=== PATIENT | male | born 1970 | race Two or more races ===

== ENCOUNTER 2016-12-13 11:45 | Inpatient (IN) | payer MEDICARE, MEDICAID ==
[~2016-12-13] VITALS: Ht 165.1 cm; Wt 95.7 kg
[2016-12-13] MEDS ORDERED: ABILIFY15 MG ORAL (17:21)
[2016-12-13] MEDS ORDERED: NEURONTIN300 MG ORAL (17:21)
[2016-12-13] MEDS ORDERED: TAMSULOSIN HCL0.4 MG ORAL (17:21)
[2016-12-13] MEDS ORDERED: DEPAKENE250 MG/5 M PO (17:21)
[2016-12-13] MEDS ORDERED: ACETAMINOPHEN325 M1 ORAL (17:21)
[2016-12-13] MEDS ORDERED: LORAZEPAM0.5 MG ORAL (17:21)
[2016-12-13] MEDS ORDERED: TRAZODONE HCL300 MG ORAL (17:21)
[2016-12-13] MEDS ORDERED: ZYPREXA20 MG ORAL (17:21)
[2016-12-13] MEDS ORDERED: FLEET ENEMA133 ML RECTAL (17:21)
[2016-12-13] MEDS ORDERED: AMBIEN5 MG ORAL (17:21)
[2016-12-13] MEDS ORDERED: BENADRYL25 MG ORAL (17:21)
[2016-12-13] MEDS ORDERED: OYSTER SHELL 51 EAC1 PO (17:21)
[2016-12-13] MEDS ORDERED: PROSCAR5 MG ORAL (17:21)
[2016-12-13] MEDS ORDERED: AMANTADINE50 MG/5 ML ORAL (17:21)
[2016-12-13 17:24] VITALS: BP 99/72
[2016-12-13] MEDS ORDERED: Morphine Sulfate 2mg/ml Inj IVP PRN (18:00)
[2016-12-13] MEDS ORDERED: LORazepam Inj 2mg/ml 1ml IV PRN (18:00)
[2016-12-13] MEDS ORDERED: D5 1/2NS 1,000 ML IV SCH (18:30)
--- NOTE | 2016-12-13 18:51 | Infectious Diseases Prog Note ---
Assessment/Plan Problems: (1) Sepsis Assessment & Plan: will send blood culture and start cefepime with vancomycin empirically (2) UTI (urinary tract infection) Assessment & Plan: will order UA and urine culture, and start cefepime (3) Elevated liver enzymes Assessment & Plan: unclear etiology, will screen for hepatitis, recommend GI consult Subjective Allergies: Coded Allergies: VANCOMYCIN (Verified Allergy, Unknown, 12/13/16) Objective Vital Signs Last 24 Hour Vital Signs Date Time Temp Pulse Resp B/P (MAP) Pulse Ox O2 Delivery O2 Flow Rate FiO2 12/13/16 17:24 97.9 86 18 99/72 98 Room Air Height (Feet): 5 Height (Inches): 7.00 Weight (Pounds): 212 Current Medications Medications (Trade) Dose Ordered Sig/Abhishek Route PRN Reason Start Time Stop Time Status Last Admin Dose Admin Aripiprazole (Abilify) 15 mg DAILY ORAL 12/14/16 09:00 01/13/17 08:59 Dextrose (Dextrose 50%) STAT PRN IV Hypoglycemia 12/13/16 18:00 01/12/17 17:59 Dextrose/Sodium Chloride 1,000 ml @ 50 mls/hr Q20H IV 12/13/16 18:30 01/12/17 18:29 12/13/16 18:33 Finasteride (Proscar) 5 mg DAILY ORAL 12/14/16 09:00 01/13/17 08:59 Gabapentin (Neurontin) 300 mg THREE TIMES A DAY ORAL 12/13/16 20:00 01/12/17 19:59 Heparin Sodium (Porcine) (Heparin 5000 units/ml) 5,000 units EVERY 12 HOURS SUBQ 12/13/16 21:00 01/12/17 20:59 Lorazepam (Ativan 2mg/ml 1ml) 0.5 mg Q4H PRN IV For Anxiety 12/13/16 18:00 12/20/16 17:59 Morphine Sulfate (Morphine Sulfate) 1 mg Q4H PRN IVP PAIN 4-10 12/13/16 18:00 12/20/16 17:59 Olanzapine (ZyPREXA) 5 mg DAILY ORAL 12/14/16 09:00 01/13/17 08:59 Ondansetron HCl (Zofran) 4 mg Q6H PRN IVP Nausea & Vomiting 12/13/16 18:00 01/12/17 17:59 Tamsulosin HCl (Flomax) 0.4 mg BEDTIME ORAL 12/13/16 21:00 01/12/17 20:59 Trazodone HCl (Desyrel) 300 mg BEDTIME ORAL 12/13/16 21:00 01/12/17 20:59 Kavin Rolon M.D. Dec 13, 2016 18:51
[2016-12-13 19:33] LABS: APPEARANCE,URINE SLIGHTLY CLOUDY; KETONES,URINE NEGATIVE (NEGATIVE); LEUKOCYTE ESTERASE ,URINE 2+ (NEGATIVE); NITRITE,URINE NEGATIVE (NEGATIVE); PH,URINE 6 (4.5-8.0); PROTEIN,URINE NEGATIVE (NEGATIVE); UROBILINOGEN,URINE 12 MG/DL (0.0-1.0)
[2016-12-13 19:37] LABS: BASOPHILS % (AUTO) 0.8 % (0.0-2.0); EOSINOPHILS % (AUTO) 0.2 % (0.0-3.0); LYMPHOCYTES % (AUTO) 15.4 % (20.0-45.0); MEAN CORPUSCULAR HEMOGLOBIN 30.4 PG (27.0-31.0); MEAN CORPUSCULAR VOLUME 95 FL (80-99); MEAN PLATELET VOLUME 8.7 FL (6.5-10.1); MONOCYTES % (AUTO) 7.9 % (1.0-10.0); NEUTROPHILS % (AUTO) 75.7 % (45.0-75.0); PLATELET COUNT 126 K/UL (150-450); RED BLOOD COUNT 3.89 M/UL (4.70-6.10); RED CELL DISTRIBUTION WIDTH 15.8 % (11.6-14.8); WHITE BLOOD COUNT 5.7 K/UL (4.8-10.8)
[2016-12-13 19:41] LABS: BACTERIA,URINE FEW /HPF; RBC,URINE 20-30 /HPF (0 - 0); SQUAMOUS EPITHELIAL CELL,UR OCCASIONAL /LPF (NONE/OCC)
[2016-12-13 19:42] LABS: ICTOTEST NEGATIVE
[2016-12-13 19:43] LABS: ALANINE AMINOTRANSFERASE 222 U/L (12-78); ALBUMIN/GLOBULIN RATIO 0.8 (1.0-2.7); ANION GAP 10 (5-15); ASPARTATE AMINO TRANSFERASE 476 U/L (15-37); CALCIUM 7.2 MG/DL (8.5-10.1); CARBON DIOXIDE 22 MMOL/L (21-32); CHLORIDE 116 MMOL/L (98-107); CREATININE 0.6 MG/DL (0.55-1.30); GLOMERULAR FILTRATION RATE > 60 mL/min (>60); POTASSIUM 3.3 MMOL/L (3.5-5.1); SODIUM 148 MMOL/L (136-145)
[2016-12-13] MEDS ORDERED: Cefepime HCl 2 GM in D5W 110 ML IVPB ONE (20:00)
[2016-12-13 20:05] VITALS: BP 99/58
[2016-12-13] MEDS: Cefepime HCl 2 GM in D5W 110 ML IVPB SCH (20:36)
[2016-12-13] MEDS: Heparin 5000 units/ml inj SUBQ SCH (20:37)
[2016-12-13] MEDS ORDERED: TraZODone 100mg tab ORAL SCH (21:00)
[2016-12-13] MEDS ORDERED: Tamsulosin 0.4mg cap ORAL SCH (21:00)
[2016-12-13] MEDS: Clindamycin 600mg 50 ML IV SCH (22:17)
[2016-12-14] VITALS: BP 110/65
[2016-12-14 04:00] VITALS: BP 115/77
[2016-12-14] MEDS: Clindamycin 600mg 50 ML IV SCH ×3 (04:05→22:00)
[2016-12-14 04:46] LABS: BASOPHILS % (AUTO) 1.5 % (0.0-2.0); EOSINOPHILS % (AUTO) 0.7 % (0.0-3.0); LYMPHOCYTES % (AUTO) 27.7 % (20.0-45.0); MEAN CORPUSCULAR HEMOGLOBIN 31.9 PG (27.0-31.0); MEAN CORPUSCULAR HGB CONC 34.6 G/DL (32.0-36.0); MEAN CORPUSCULAR VOLUME 92 FL (80-99); MEAN PLATELET VOLUME 9.2 FL (6.5-10.1); NEUTROPHILS % (AUTO) 61.1 % (45.0-75.0); PLATELET COUNT 126 K/UL (150-450); RED CELL DISTRIBUTION WIDTH 15.7 % (11.6-14.8); WHITE BLOOD COUNT 4.6 K/UL (4.8-10.8)
[2016-12-14 07:20] LABS: HEPATITIS A ANTIBODY TOTAL Negative (Negative)
[2016-12-14 07:54] LABS: ALANINE AMINOTRANSFERASE 203 U/L (12-78); ALBUMIN/GLOBULIN RATIO 0.6 (1.0-2.7); ANION GAP 10 (5-15); ASPARTATE AMINO TRANSFERASE 384 U/L (15-37); CALCIUM 7.1 MG/DL (8.5-10.1); CARBON DIOXIDE 21 MMOL/L (21-32); CHLORIDE 117 MMOL/L (98-107); CREATININE 0.6 MG/DL (0.55-1.30); GLOMERULAR FILTRATION RATE > 60 mL/min (>60); POTASSIUM 3.4 MMOL/L (3.5-5.1); SODIUM 147 MMOL/L (136-145)
[2016-12-14 08:00] VITALS: BP_SYST 124; BP_SYST 148; BP_DIAS 46; BP_DIAS 65
[2016-12-14] MEDS: Cefepime HCl 2 GM in D5W 110 ML IVPB SCH ×2 (09:51→20:55)
[2016-12-14] MEDS: Heparin 5000 units/ml inj SUBQ SCH ×2 (09:53→20:56)
--- NOTE | 2016-12-14 11:42 | Diagnostic Imaging Report ---
Indication: Chest pain Technique: One view of the chest Comparison: none Findings: Bands of atelectasis or scarring are seen in the left lung base. Lungs and pleural spaces are otherwise clear. The heart is upper limits of normal in size. Impression: Left basilar atelectasis or scarring No acute process otherwise
--- NOTE | 2016-12-14 11:56 | Consultation ---
History of Present Illness General Date patient seen: Dec 13, 2016 Present Illness HPI 46 year old male with hx of Parkinson, schizophrenia, bipolar, depression, dementia, epilepsy, custodial resident was taken to [facility] with CC of fever. Pt was diagnosed to have sepsis and was transferred to [facility] for further w/ u. Pt is awake, looks comfortable but cant give any history. He can utter a few words. Doesn't have any acute complains. Allergies: Coded Allergies: VANCOMYCIN (Verified Allergy, Unknown, 12/13/16) Medication History Scheduled Amantadine HCl (Amantadine), 100 MG ORAL TWICE A DAY, (Reported) Aripiprazole* (Abilify*), 15 MG ORAL DAILY, (Reported) Calcium Carbonate/Vitamin D3 (Oyster Shell 500 Mg + Vit D Tb), 1 EACH PO BID, ( Reported) Finasteride* (Proscar*), 5 MG ORAL DAILY, (Reported) Gabapentin (Neurontin), 300 MG ORAL THREE TIMES A DAY, (Reported) Olanzapine (Zyprexa), 20 MG ORAL BID, (Reported) Tamsulosin Hcl (Tamsulosin Hcl*), 0.4 MG ORAL BEDTIME, (Reported) Trazodone Hcl (Trazodone Hcl), 300 MG ORAL BEDTIME, (Reported) Valproate Sodium (Depakene), 250 MG PO TID, (Reported) Scheduled PRN Acetaminophen* (Acetaminophen 325MG Tablet*), 650 MG ORAL Q4H PRN for Mild Pain/ Temp > 100.5, (Reported) Diphenhydramine Hcl* (Benadryl*), 25 MG ORAL Q6H PRN for Itching, (Reported) Lorazepam* (Lorazepam*), 0.5 MG ORAL Q6HR PRN for Agitation, (Reported) Na Phos,M-B/Na Phos,Di-Ba* (Fleet Enema*), 133 ML RECTAL DAILY PRN for Constipation, (Reported) Zolpidem Tartrate* (Ambien*), 2.5 MG ORAL BEDTIME PRN for Insomnia, (Reported) Patient History Healthcare decision maker N Resuscitation status Full Code Advanced Directive on File Past Medical/Surgical History Past Medical/Surgical History: (1) Parkinson disease (2) Dementia (3) Epilepsia Review of Systems All Other Systems: negative except mentioned in HPI Physical Exam General Appearance: WD/WN, no apparent distress Lines, tubes and drains: peripheral, PICC HEENT: normocephalic, atraumatic Neck: non-tender, supple Respiratory/Chest: chest wall non-tender, lungs clear Breasts: no masses Cardiovascular/Chest: normal peripheral pulses, regularly irregular Last 24 Hour Vital Signs Date Time Temp Pulse Resp B/P (MAP) Pulse Ox O2 Delivery O2 Flow Rate FiO2 12/14/16 08:00 97.6 72 20 124/46 97 Room Air 12/14/16 08:00 75 12/14/16 04:00 97.2 75 19 115/77 95 Room Air 12/14/16 04:00 77 12/14/16 00:00 64 12/14/16 00:00 98.1 80 18 110/65 97 Room Air 12/13/16 20:05 97.9 83 17 99/58 95 Room Air 12/13/16 20:00 78 12/13/16 17:24 97.9 86 18 99/72 98 Room Air Laboratory Tests Test 12/13/16 18:43 12/13/16 19:00 12/13/16 20:10 12/14/16 03:20 White Blood Count 5.7 K/UL (4.8-10.8) 4.6 K/UL (4.8-10.8) L Red Blood Count 3.89 M/UL (4.70-6.10) L 4.00 M/UL (4.70-6.10) L Hemoglobin 11.8 G/DL (14.2-18.0) L 12.8 G/DL (14.2-18.0) L Hematocrit 36.9 % (42.0-52.0) L 36.9 % (42.0-52.0) L Mean Corpuscular Volume 95 FL (80-99) 92 FL (80-99) Mean Corpuscular Hemoglobin 30.4 PG (27.0-31.0) 31.9 PG (27.0-31.0) H Mean Corpuscular Hemoglobin Concent 32.0 G/DL (32.0-36.0) 34.6 G/DL (32.0-36.0) Red Cell Distribution Width 15.8 % (11.6-14.8) H 15.7 % (11.6-14.8) H Platelet Count 126 K/UL (150-450) L 126 K/UL (150-450) L Mean Platelet Volume 8.7 FL (6.5-10.1) 9.2 FL (6.5-10.1) Neutrophils (%) (Auto) 75.7 % (45.0-75.0) H 61.1 % (45.0-75.0) Lymphocytes (%) (Auto) 15.4 % (20.0-45.0) L 27.7 % (20.0-45.0) Monocytes (%) (Auto) 7.9 % (1.0-10.0) 9.0 % (1.0-10.0) Eosinophils (%) (Auto) 0.2 % (0.0-3.0) 0.7 % (0.0-3.0) Basophils (%) (Auto) 0.8 % (0.0-2.0) 1.5 % (0.0-2.0) Sodium Level 148 MMOL/L (136-145) H 147 MMOL/L (136-145) H Potassium Level 3.3 MMOL/L (3.5-5.1) L 3.4 MMOL/L (3.5-5.1) L Chloride Level 116 MMOL/L (98-107) H 117 MMOL/L (98-107) H Carbon Dioxide Level 22 MMOL/L (21-32) 21 MMOL/L (21-32) Anion Gap 10 (5-15) 10 (5-15) Blood Urea Nitrogen 16 mg/dL (7-18) 15 mg/dL (7-18) Creatinine 0.6 MG/DL (0.55-1.30) 0.6 MG/DL (0.55-1.30) Estimat Glomerular Filtration Rate > 60 mL/min (>60) > 60 mL/min (>60) Glucose Level 101 MG/DL (74-106) 94 MG/DL (74-106) Calcium Level 7.2 MG/DL (8.5-10.1) L 7.1 MG/DL (8.5-10.1) L Total Bilirubin 0.8 MG/DL (0.2-1.0) 0.5 MG/DL (0.2-1.0) Aspartate Amino Transf (AST/SGOT) 476 U/L (15-37) H 384 U/L (15-37) H Alanine Aminotransferase (ALT/SGPT) 222 U/L (12-78) H 203 U/L (12-78) H Alkaline Phosphatase 34 U/L (46-116) L 37 U/L (46-116) L Total Protein 5.0 G/DL (6.4-8.2) L 5.0 G/DL (6.4-8.2) L Albumin 2.2 G/DL (3.4-5.0) L 1.9 G/DL (3.4-5.0) L Globulin 2.8 g/dL 3.1 g/dL Albumin/Globulin Ratio 0.8 (1.0-2.7) L 0.6 (1.0-2.7) L Urine Color Brown Urine Appearance Slightly cloudy Urine pH 6 (4.5-8.0) Urine Specific [place] 1.015 (1.005-1.035) Urine Protein Negative (NEGATIVE) Urine Glucose (UA) Negative (NEGATIVE) Urine Ketones Negative (NEGATIVE) Urine Occult Blood 4+ (NEGATIVE) H Urine Nitrite Negative (NEGATIVE) Urine Bilirubin 1+ (NEGATIVE) H Urine Ictotest Negative Urine Urobilinogen 12 MG/DL (0.0-1.0) H Urine Leukocyte Esterase 2+ (NEGATIVE) H Urine RBC 20-30 /HPF (0 - 0) H Urine WBC 5-10 /HPF (0 - 0) H Urine Squamous Epithelial Cells Occasional /LPF Urine Bacteria Few /HPF (NONE) Urine Opiates Screen Negative (NEGATIVE) Urine Barbiturates Screen Negative (NEGATIVE) Phencyclidine (PCP) Screen Negative (NEGATIVE) Urine Amphetamines Screen Negative (NEGATIVE) Urine Benzodiazepines Screen Negative (NEGATIVE) Urine Cocaine Screen Negative (NEGATIVE) Urine Marijuana (THC) Screen Negative (NEGATIVE) Hepatitis A Antibody Total Negative (Negative) Hepatitis B Surface Antigen Negative (Negative) Hepatitis B Core IgM Antibody Negative (Negative) Hepatitis C Antibody >11.0 s/co ratio Hepatitis E IgG Antibody Pending Microbiology Date/Time Source Procedure Growth Status 12/13/16 19:00 Indwelling Cath Urine Culture - Preliminary NO GROWTH Resulted Height (Feet): 5 Height (Inches): 7.00 Weight (Pounds): 212 Medications Current Medications Medications (Trade) Dose Ordered Sig/Abhishek Route PRN Reason Start Time Stop Time Status Last Admin Dose Admin Aripiprazole (Abilify) 15 mg DAILY ORAL 12/14/16 09:00 01/13/17 08:59 12/14/16 09:51 Cefepime HCl 2 gm/ Dextrose 110 ml @ 220 mls/hr Q12HR IVPB 12/13/16 20:30 12/20/16 20:29 12/14/16 09:51 Clindamycin HCl/ Dextrose 50 ml @ 100 mls/hr Q8H IV 12/13/16 21:00 12/20/16 20:59 12/14/16 04:05 Dextrose (Dextrose 50%) STAT PRN IV Hypoglycemia 12/13/16 18:00 01/12/17 17:59 Dextrose/Sodium Chloride 1,000 ml @ 50 mls/hr Q20H IV 12/13/16 18:30 01/12/17 18:29 12/13/16 18:33 Finasteride (Proscar) 5 mg DAILY ORAL 12/14/16 09:00 01/13/17 08:59 12/14/16 09:51 Gabapentin (Neurontin) 300 mg THREE TIMES A DAY ORAL 12/13/16 20:00 01/12/17 19:59 12/14/16 09:51 Heparin Sodium (Porcine) (Heparin 5000 units/ml) 5,000 units EVERY 12 HOURS SUBQ 12/13/16 21:00 01/12/17 20:59 12/14/16 09:53 Lorazepam (Ativan 2mg/ml 1ml) 0.5 mg Q4H PRN IV For Anxiety 12/13/16 18:00 12/20/16 17:59 Morphine Sulfate (Morphine Sulfate) 1 mg Q4H PRN IVP PAIN 4-10 12/13/16 18:00 12/20/16 17:59 Olanzapine (ZyPREXA) 5 mg DAILY ORAL 12/14/16 09:00 01/13/17 08:59 12/14/16 09:51 Ondansetron HCl (Zofran) 4 mg Q6H PRN IVP Nausea & Vomiting 12/13/16 18:00 01/12/17 17:59 Tamsulosin HCl (Flomax) 0.4 mg BEDTIME ORAL 12/13/16 21:00 11/9/17 20:59 12/13/16 20:37 Trazodone HCl (Desyrel) 300 mg BEDTIME ORAL 12/13/16 21:00 01/12/17 20:59 12/13/16 20:36 Assessment/Plan Problem List: (1) Sepsis ICD Codes: A41.9 - Sepsis, unspecified organism SNOMED: 45628248 (2) UTI (urinary tract infection) ICD Codes: N39.0 - Urinary tract infection, site not specified SNOMED: 38751459 (3) Epilepsia ICD Codes: G40.909 - Epilepsy, unspecified, not intractable, without status epilepticus SNOMED: 06054737 (4) Parkinson disease ICD Codes: G20 - Parkinson's disease SNOMED: 15102564 (5) Dementia ICD Codes: F03.90 - Unspecified dementia without behavioral disturbance SNOMED: 43351334 Assessment/Plan chou culture broad spectrum abx aspiration precaution dvt prophylaxis psych and neuro evaluation. ARIANA VELÁZQUEZ Dec 14, 2016 11:55
--- NOTE | 2016-12-14 11:58 | Pulmonology Progress Note ---
Assessment/Plan Problems: (1) Sepsis (2) UTI (urinary tract infection) (3) Epilepsia (4) Parkinson disease (5) Dementia Assessment/Plan resume diet continue abx check cultures dvt prophylaxis check liver function Subjective ROS Limited/Unobtainable: No Constitutional: Reports: no symptoms Respiratory: Reports: no symptoms Allergies: Coded Allergies: VANCOMYCIN (Verified Allergy, Unknown, 12/13/16) Objective Last 24 Hour Vital Signs Date Time Temp Pulse Resp B/P (MAP) Pulse Ox O2 Delivery O2 Flow Rate FiO2 12/14/16 08:00 97.6 72 20 124/46 97 Room Air 12/14/16 08:00 75 12/14/16 04:00 97.2 75 19 115/77 95 Room Air 12/14/16 04:00 77 12/14/16 00:00 64 12/14/16 00:00 98.1 80 18 110/65 97 Room Air 12/13/16 20:05 97.9 83 17 99/58 95 Room Air 12/13/16 20:00 78 12/13/16 17:24 97.9 86 18 99/72 98 Room Air General Appearance: WD/WN HEENT: normocephalic, atraumatic Respiratory/Chest: chest wall non-tender, lungs clear Cardiovascular: normal peripheral pulses, normal rate Abdomen: normal bowel sounds, no organomegaly Genitourinary: normal external genitalia Skin: no rash 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 Lymphatic: no neck adenopathy Microbiology Date/Time Source Procedure Growth Status 12/13/16 19:00 Indwelling Cath Urine Culture - Preliminary NO GROWTH Resulted Laboratory Tests 12/13/16 18:43: White Blood Count 5.7, Red Blood Count 3.89L, Hemoglobin 11.8L, Hematocrit 36.9L , Mean Corpuscular Volume 95, Mean Corpuscular Hemoglobin 30.4, Mean Corpuscular Hemoglobin Concent 32.0, Red Cell Distribution Width 15.8H, Platelet Count 126L, Mean Platelet Volume 8.7, Neutrophils (%) (Auto) 75.7H, Lymphocytes (%) (Auto) 15.4L, Monocytes (%) (Auto) 7.9, Eosinophils (%) (Auto) 0.2, Basophils (%) (Auto) 0.8, Sodium Level 148H, Potassium Level 3.3L, Chloride Level 116H, Carbon Dioxide Level 22, Anion Gap 10, Blood Urea Nitrogen 16, Creatinine 0.6, Estimat Glomerular Filtration Rate > 60, Glucose Level 101, Calcium Level 7.2L, Total Bilirubin 0.8, Aspartate Amino Transf (AST/SGOT) 476H , Alanine Aminotransferase (ALT/SGPT) 222H, Alkaline Phosphatase 34L, Total Protein 5.0L, Albumin 2.2L, Globulin 2.8, Albumin/Globulin Ratio 0.8L 12/13/16 19:00: Urine Color Brown, Urine Appearance Slightly cloudy, Urine pH 6, Urine Specific [place] 1.015, Urine Protein Negative, Urine Glucose (UA) Negative, Urine Ketones Negative, Urine Occult Blood 4+H, Urine Nitrite Negative, Urine Bilirubin 1+H, Urine Ictotest Negative, Urine Urobilinogen 12H, Urine Leukocyte Esterase 2+H, Urine RBC 20-30H, Urine WBC 5-10H, Urine Squamous Epithelial Cells Occasional, Urine Bacteria Few, Urine Opiates Screen Negative, Urine Barbiturates Screen Negative, Phencyclidine (PCP) Screen Negative, Urine Amphetamines Screen Negative, Urine Benzodiazepines Screen Negative, Urine Cocaine Screen Negative, Urine Marijuana (THC) Screen Negative 12/13/16 20:10: Hepatitis A Antibody Total Negative, Hepatitis B Surface Antigen Negative, Hepatitis B Core IgM Antibody Negative, Hepatitis C Antibody >11.0H, Hepatitis E IgG Antibody [Pending] 12/14/16 03:20: White Blood Count 4.6L, Red Blood Count 4.00L, Hemoglobin 12.8L, Hematocrit 36.9L, Mean Corpuscular Volume 92, Mean Corpuscular Hemoglobin 31.9H, Mean Corpuscular Hemoglobin Concent 34.6, Red Cell Distribution Width 15.7H, Platelet Count 126L, Mean Platelet Volume 9.2, Neutrophils (%) (Auto) 61.1, Lymphocytes (%) (Auto) 27.7, Monocytes (%) (Auto) 9.0, Eosinophils (%) (Auto) 0.7, Basophils (%) (Auto) 1.5, Sodium Level 147H, Potassium Level 3.4L, Chloride Level 117H, Carbon Dioxide Level 21, Anion Gap 10, Blood Urea Nitrogen 15, Creatinine 0.6, Estimat Glomerular Filtration Rate > 60, Glucose Level 94, Calcium Level 7.1L, Total Bilirubin 0.5, Aspartate Amino Transf (AST/SGOT) 384H , Alanine Aminotransferase (ALT/SGPT) 203H, Alkaline Phosphatase 37L, Total Protein 5.0L, Albumin 1.9L, Globulin 3.1, Albumin/Globulin Ratio 0.6L Current Medications Medications (Trade) Dose Ordered Sig/Abhishek Route PRN Reason Start Time Stop Time Status Last Admin Dose Admin Aripiprazole (Abilify) 15 mg DAILY ORAL 12/14/16 09:00 01/13/17 08:59 12/14/16 09:51 Cefepime HCl 2 gm/ Dextrose 110 ml @ 220 mls/hr Q12HR IVPB 12/13/16 20:30 12/20/16 20:29 12/14/16 09:51 Clindamycin HCl/ Dextrose 50 ml @ 100 mls/hr Q8H IV 12/13/16 21:00 12/20/16 20:59 12/14/16 04:05 Dextrose (Dextrose 50%) STAT PRN IV Hypoglycemia 12/13/16 18:00 01/12/17 17:59 Dextrose/Sodium Chloride 1,000 ml @ 50 mls/hr Q20H IV 12/13/16 18:30 01/12/17 18:29 12/13/16 18:33 Finasteride (Proscar) 5 mg DAILY ORAL 12/14/16 09:00 01/13/17 08:59 12/14/16 09:51 Gabapentin (Neurontin) 300 mg THREE TIMES A DAY ORAL 12/13/16 20:00 01/12/17 19:59 12/14/16 09:51 Heparin Sodium (Porcine) (Heparin 5000 units/ml) 5,000 units EVERY 12 HOURS SUBQ 12/13/16 21:00 01/12/17 20:59 12/14/16 09:53 Lorazepam (Ativan 2mg/ml 1ml) 0.5 mg Q4H PRN IV For Anxiety 12/13/16 18:00 12/20/16 17:59 Morphine Sulfate (Morphine Sulfate) 1 mg Q4H PRN IVP PAIN 4-10 12/13/16 18:00 12/20/16 17:59 Olanzapine (ZyPREXA) 5 mg DAILY ORAL 12/14/16 09:00 01/13/17 08:59 12/14/16 09:51 Ondansetron HCl (Zofran) 4 mg Q6H PRN IVP Nausea & Vomiting 12/13/16 18:00 01/12/17 17:59 Tamsulosin HCl (Flomax) 0.4 mg BEDTIME ORAL 12/13/16 21:00 01/12/17 20:59 12/13/16 20:37 Trazodone HCl (Desyrel) 300 mg BEDTIME ORAL 12/13/16 21:00 01/12/17 20:59 12/13/16 20:36 ARIANA VELÁZQUEZ Dec 14, 2016 11:58
[2016-12-14 12:00] VITALS: BP 120/64
[2016-12-14] MEDS ORDERED: Morphine Sulfate 2mg/ml Inj IVP PRN ×2 (14:00→18:00)
[2016-12-14] MEDS ORDERED: LORazepam Inj 2mg/ml 1ml IV PRN (14:00)
[2016-12-14] MEDS ORDERED: D5 1/2NS 1,000 ML IV SCH ×2 (15:15→17:00)
[2016-12-14 16:00] VITALS: BP 101/58
--- NOTE | 2016-12-14 16:22 | Infectious Diseases Prog Note ---
Assessment/Plan Problems: (1) Sepsis Assessment & Plan: await blood culture and continue cefepime with clindamycin empirically (can't give vancomycin since allergic) (2) UTI (urinary tract infection) Assessment & Plan: await urine culture, continue cefepime (3) Elevated liver enzymes Assessment & Plan: due to chronic HCV infection, will order viral load and genotype, recommend treatment with GI as an out patient (4) HCV infection Assessment & Plan: will check his genotype and viral load, recommend treatment as an out patient Subjective ROS Limited/Unobtainable: Yes Allergies: Coded Allergies: VANCOMYCIN (Verified Allergy, Unknown, 12/13/16) Subjective he is up in bed, alert, comfortable, not in distress, nonverbal , afebrile Objective Vital Signs Last 24 Hour Vital Signs Date Time Temp Pulse Resp B/P (MAP) Pulse Ox O2 Delivery O2 Flow Rate FiO2 12/14/16 12:46 87 12/14/16 12:00 97.7 77 19 120/64 Room Air 12/14/16 08:00 97.6 72 20 124/46 97 Room Air 12/14/16 08:00 75 12/14/16 04:00 97.2 75 19 115/77 95 Room Air 12/14/16 04:00 77 12/14/16 00:00 64 12/14/16 00:00 98.1 80 18 110/65 97 Room Air 12/13/16 20:05 97.9 83 17 99/58 95 Room Air 12/13/16 20:00 78 12/13/16 17:24 97.9 86 18 99/72 98 Room Air Height (Feet): 5 Height (Inches): 7.00 Weight (Pounds): 212 General Appearance: WD/WN, no acute distress HEENT: normocephalic, atraumatic, anicteric, mucous membranes moist, PERRL Respiratory/Chest: chest wall non-tender, lungs clear, normal breath sounds, no respiratory distress, no accessory muscle use Cardiovascular: normal peripheral pulses, normal rate, regular rhythm, no gallop/murmur, no JVD Abdomen: normal bowel sounds, soft, non tender, no organomegaly, non distended , no mass, no scars Extremities: no cyanosis, no clubbing Skin: no rash, no lesions Neurologic/Psychiatric: alert, oriented x 3 Lymphatic: no neck adenopathy Microbiology Date/Time Source Procedure Growth Status 12/13/16 19:00 Indwelling Cath Urine Culture - Preliminary NO GROWTH Resulted Laboratory Tests Test 12/13/16 18:43 12/13/16 19:00 12/13/16 20:10 12/14/16 03:20 White Blood Count 5.7 K/UL (4.8-10.8) 4.6 K/UL (4.8-10.8) L Red Blood Count 3.89 M/UL (4.70-6.10) L 4.00 M/UL (4.70-6.10) L Hemoglobin 11.8 G/DL (14.2-18.0) L 12.8 G/DL (14.2-18.0) L Hematocrit 36.9 % (42.0-52.0) L 36.9 % (42.0-52.0) L Mean Corpuscular Volume 95 FL (80-99) 92 FL (80-99) Mean Corpuscular Hemoglobin 30.4 PG (27.0-31.0) 31.9 PG (27.0-31.0) H Mean Corpuscular Hemoglobin Concent 32.0 G/DL (32.0-36.0) 34.6 G/DL (32.0-36.0) Red Cell Distribution Width 15.8 % (11.6-14.8) H 15.7 % (11.6-14.8) H Platelet Count 126 K/UL (150-450) L 126 K/UL (150-450) L Mean Platelet Volume 8.7 FL (6.5-10.1) 9.2 FL (6.5-10.1) Neutrophils (%) (Auto) 75.7 % (45.0-75.0) H 61.1 % (45.0-75.0) Lymphocytes (%) (Auto) 15.4 % (20.0-45.0) L 27.7 % (20.0-45.0) Monocytes (%) (Auto) 7.9 % (1.0-10.0) 9.0 % (1.0-10.0) Eosinophils (%) (Auto) 0.2 % (0.0-3.0) 0.7 % (0.0-3.0) Basophils (%) (Auto) 0.8 % (0.0-2.0) 1.5 % (0.0-2.0) Sodium Level 148 MMOL/L (136-145) H 147 MMOL/L (136-145) H Potassium Level 3.3 MMOL/L (3.5-5.1) L 3.4 MMOL/L (3.5-5.1) L Chloride Level 116 MMOL/L (98-107) H 117 MMOL/L (98-107) H Carbon Dioxide Level 22 MMOL/L (21-32) 21 MMOL/L (21-32) Anion Gap 10 (5-15) 10 (5-15) Blood Urea Nitrogen 16 mg/dL (7-18) 15 mg/dL (7-18) Creatinine 0.6 MG/DL (0.55-1.30) 0.6 MG/DL (0.55-1.30) Estimat Glomerular Filtration Rate > 60 mL/min (>60) > 60 mL/min (>60) Glucose Level 101 MG/DL (74-106) 94 MG/DL (74-106) Calcium Level 7.2 MG/DL (8.5-10.1) L 7.1 MG/DL (8.5-10.1) L Total Bilirubin 0.8 MG/DL (0.2-1.0) 0.5 MG/DL (0.2-1.0) Aspartate Amino Transf (AST/SGOT) 476 U/L (15-37) H 384 U/L (15-37) H Alanine Aminotransferase (ALT/SGPT) 222 U/L (12-78) H 203 U/L (12-78) H Alkaline Phosphatase 34 U/L (46-116) L 37 U/L (46-116) L Total Protein 5.0 G/DL (6.4-8.2) L 5.0 G/DL (6.4-8.2) L Albumin 2.2 G/DL (3.4-5.0) L 1.9 G/DL (3.4-5.0) L Globulin 2.8 g/dL 3.1 g/dL Albumin/Globulin Ratio 0.8 (1.0-2.7) L 0.6 (1.0-2.7) L Urine Color Brown Urine Appearance Slightly cloudy Urine pH 6 (4.5-8.0) Urine Specific [place] 1.015 (1.005-1.035) Urine Protein Negative (NEGATIVE) Urine Glucose (UA) Negative (NEGATIVE) Urine Ketones Negative (NEGATIVE) Urine Occult Blood 4+ (NEGATIVE) H Urine Nitrite Negative (NEGATIVE) Urine Bilirubin 1+ (NEGATIVE) H Urine Ictotest Negative Urine Urobilinogen 12 MG/DL (0.0-1.0) H Urine Leukocyte Esterase 2+ (NEGATIVE) H Urine RBC 20-30 /HPF (0 - 0) H Urine WBC 5-10 /HPF (0 - 0) H Urine Squamous Epithelial Cells Occasional /LPF Urine Bacteria Few /HPF (NONE) Urine Opiates Screen Negative (NEGATIVE) Urine Barbiturates Screen Negative (NEGATIVE) Phencyclidine (PCP) Screen Negative (NEGATIVE) Urine Amphetamines Screen Negative (NEGATIVE) Urine Benzodiazepines Screen Negative (NEGATIVE) Urine Cocaine Screen Negative (NEGATIVE) Urine Marijuana (THC) Screen Negative (NEGATIVE) Hepatitis A Antibody Total Negative (Negative) Hepatitis B Surface Antigen Negative (Negative) Hepatitis B Core IgM Antibody Negative (Negative) Hepatitis C Antibody >11.0 s/co ratio Hepatitis E IgG Antibody Pending Current Medications Medications (Trade) Dose Ordered Sig/Abhishek Route PRN Reason Start Time Stop Time Status Last Admin Dose Admin Aripiprazole (Abilify) 15 mg DAILY ORAL 12/15/16 09:00 01/13/17 08:59 UNV Cefepime HCl 2 gm/ Dextrose 110 ml @ 220 mls/hr Q12HR IVPB 12/14/16 21:00 12/20/16 20:29 UNV Clindamycin HCl/ Dextrose 50 ml @ 100 mls/hr Q8H IV 12/14/16 21:00 12/20/16 20:59 UNV Dextrose (Dextrose 50%) STAT PRN IV Hypoglycemia 12/15/16 15:00 01/12/17 14:59 UNV Dextrose/Sodium Chloride 1,000 ml @ 50 mls/hr Q20H IV 12/14/16 15:30 01/12/17 15:14 UNV Finasteride (Proscar) 5 mg DAILY ORAL 12/15/16 09:00 01/13/17 08:59 UNV Gabapentin (Neurontin) 300 mg THREE TIMES A DAY ORAL 12/14/16 18:00 01/12/17 19:59 UNV Heparin Sodium (Porcine) (Heparin 5000 units/ml) 5,000 units EVERY 12 HOURS SUBQ 12/14/16 21:00 01/12/17 20:59 UNV Lorazepam (Ativan 2mg/ml 1ml) 0.5 mg Q4H PRN IV For Anxiety 12/14/16 18:00 12/20/16 17:59 UNV Morphine Sulfate (Morphine Sulfate) 1 mg Q4H PRN IVP PAIN 4-10 12/14/16 18:00 12/20/16 17:59 UNV Olanzapine (ZyPREXA) 5 mg DAILY ORAL 12/15/16 09:00 01/13/17 08:59 UNV Ondansetron HCl (Zofran) 4 mg Q6H PRN IVP Nausea & Vomiting 12/14/16 21:00 01/12/17 14:59 UNV Tamsulosin HCl (Flomax) 0.4 mg BEDTIME ORAL 12/14/16 21:00 01/12/17 20:59 UNV Trazodone HCl (Desyrel) 300 mg BEDTIME ORAL 12/14/16 21:00 01/12/17 20:59 UNV Kavin Rolon M.D. Dec 14, 2016 16:22
--- NOTE | 2016-12-14 17:33 | Nephrology Progress Note ---
Assessment/Plan Problem List: (1) Sepsis (2) Dementia (3) Parkinson disease (4) Epilepsia Plan consult [id number] - [id number] Subjective ROS Limited/Unobtainable: Yes Constitutional: Denies: no symptoms, chills, diaphoresis, fever, malaise, weakness, other HEENT: Denies: no symptoms, eye pain, blurred vision, tearing, double vision, ear pain, ear discharge, nose pain, nose congestion, throat pain, throat swelling, mouth pain, mouth swelling, other Genitourinary: Denies: no symptoms, burning, discharge, frequency, flank pain, hematuria, incontinence, pain, urgency, other Neurologic/Psychiatric: Denies: no symptoms, anxiety, depressed, emotional problems, headache, numbness, paresthesia, pre-existing deficit, seizure, tingling, tremors, weakness, other Subjective In bed, in no apparent distress Objective Objective Last 24 Hour Vital Signs Date Time Temp Pulse Resp B/P (MAP) Pulse Ox O2 Delivery O2 Flow Rate FiO2 12/14/16 12:46 87 12/14/16 12:00 97.7 77 19 120/64 Room Air 12/14/16 08:00 97.6 72 20 124/46 97 Room Air 12/14/16 08:00 75 12/14/16 04:00 97.2 75 19 115/77 95 Room Air 12/14/16 04:00 77 12/14/16 00:00 64 12/14/16 00:00 98.1 80 18 110/65 97 Room Air 12/13/16 20:05 97.9 83 17 99/58 95 Room Air 12/13/16 20:00 78 Laboratory Tests 12/13/16 18:43: White Blood Count 5.7, Red Blood Count 3.89L, Hemoglobin 11.8L, Hematocrit 36.9L , Mean Corpuscular Volume 95, Mean Corpuscular Hemoglobin 30.4, Mean Corpuscular Hemoglobin Concent 32.0, Red Cell Distribution Width 15.8H, Platelet Count 126L, Mean Platelet Volume 8.7, Neutrophils (%) (Auto) 75.7H, Lymphocytes (%) (Auto) 15.4L, Monocytes (%) (Auto) 7.9, Eosinophils (%) (Auto) 0.2, Basophils (%) (Auto) 0.8, Sodium Level 148H, Potassium Level 3.3L, Chloride Level 116H, Carbon Dioxide Level 22, Anion Gap 10, Blood Urea Nitrogen 16, Creatinine 0.6, Estimat Glomerular Filtration Rate > 60, Glucose Level 101, Calcium Level 7.2L, Total Bilirubin 0.8, Aspartate Amino Transf (AST/SGOT) 476H , Alanine Aminotransferase (ALT/SGPT) 222H, Alkaline Phosphatase 34L, Total Protein 5.0L, Albumin 2.2L, Globulin 2.8, Albumin/Globulin Ratio 0.8L 12/13/16 19:00: Urine Color Brown, Urine Appearance Slightly cloudy, Urine pH 6, Urine Specific [place] 1.015, Urine Protein Negative, Urine Glucose (UA) Negative, Urine Ketones Negative, Urine Occult Blood 4+H, Urine Nitrite Negative, Urine Bilirubin 1+H, Urine Ictotest Negative, Urine Urobilinogen 12H, Urine Leukocyte Esterase 2+H, Urine RBC 20-30H, Urine WBC 5-10H, Urine Squamous Epithelial Cells Occasional, Urine Bacteria Few, Urine Opiates Screen Negative, Urine Barbiturates Screen Negative, Phencyclidine (PCP) Screen Negative, Urine Amphetamines Screen Negative, Urine Benzodiazepines Screen Negative, Urine Cocaine Screen Negative, Urine Marijuana (THC) Screen Negative 12/13/16 20:10: Hepatitis A Antibody Total Negative, Hepatitis B Surface Antigen Negative, Hepatitis B Core IgM Antibody Negative, Hepatitis C Antibody >11.0H, Hepatitis E IgG Antibody [Pending] 12/14/16 03:20: White Blood Count 4.6L, Red Blood Count 4.00L, Hemoglobin 12.8L, Hematocrit 36.9L, Mean Corpuscular Volume 92, Mean Corpuscular Hemoglobin 31.9H, Mean Corpuscular Hemoglobin Concent 34.6, Red Cell Distribution Width 15.7H, Platelet Count 126L, Mean Platelet Volume 9.2, Neutrophils (%) (Auto) 61.1, Lymphocytes (%) (Auto) 27.7, Monocytes (%) (Auto) 9.0, Eosinophils (%) (Auto) 0.7, Basophils (%) (Auto) 1.5, Sodium Level 147H, Potassium Level 3.4L, Chloride Level 117H, Carbon Dioxide Level 21, Anion Gap 10, Blood Urea Nitrogen 15, Creatinine 0.6, Estimat Glomerular Filtration Rate > 60, Glucose Level 94, Calcium Level 7.1L, Total Bilirubin 0.5, Aspartate Amino Transf (AST/SGOT) 384H , Alanine Aminotransferase (ALT/SGPT) 203H, Alkaline Phosphatase 37L, Total Protein 5.0L, Albumin 1.9L, Globulin 3.1, Albumin/Globulin Ratio 0.6L Height (Feet): 5 Height (Inches): 7.00 Weight (Pounds): 212 General Appearance: no apparent distress, alert EENT: PERRL/EOMI, normal ENT inspection Neck: normal alignment, supple Cardiovascular: normal rate Respiratory/Chest: normal breath sounds, no respiratory distress Abdomen: soft, no organomegaly Extremities: non-tender, normal inspection Neurologic: alert, responsive Yancy Roberts N.P. Dec 14, 2016 17:33
[2016-12-14 20:00] VITALS: BP 91/67
[2016-12-14] MEDS: Tamsulosin 0.4mg cap ORAL SCH (20:54)
[2016-12-14] MEDS: D5W w/KCl 20mEq 1,000 ML IV SCH (20:54)
[2016-12-14] MEDS ORDERED: Heparin 5000 units/ml inj SUBQ SCH (21:00)
[2016-12-14] MEDS ORDERED: Cefepime HCl 2 GM in D5W 110 ML IVPB SCH (21:00)
[2016-12-14] MEDS ORDERED: Clindamycin 600mg 50 ML IV SCH (21:00)
[2016-12-14] MEDS ORDERED: TraZODone 100mg tab ORAL SCH ×2 (21:00)
[2016-12-14] MEDS ORDERED: Tamsulosin 0.4mg cap ORAL SCH (21:00)
--- NOTE | 2016-12-14 22:46 | Consultation ---
DATE OF CONSULTATION: INFECTIOUS DISEASES CONSULTATION REQUESTING PHYSICIAN: Claudio Soria D.O. REASON FOR CONSULTATION: Sepsis, urinary tract infection and fever. Recommendation for antibiotics treatment. HISTORY OF PRESENT ILLNESS: The patient is a 46-year-old male with past medical history of dementia, Parkinson disease, schizophrenia, and epilepsy, [facility] resident, was sent to [facility] for fever. The patient was diagnosed to have sepsis and urine tract infection. He received antibiotics at [facility] and was transferred subsequently to [facility] for further management and workup and I was consulted by the primary provider for antibiotics treatment and further care. As of note, the patient is alert, awake, but cannot provide any history, nonverbal due to dementia and schizophrenia, cannot provide any detailed. History was mainly obtained from the medical record. PAST MEDICAL HISTORY: Significant for Parkinson disease, schizophrenia, bipolar disorder, dementia, and epilepsy. PAST SURGICAL HISTORY: Negative. MEDICATIONS: He is on Abilify, Proscar, Zyprexa, Zofran, Flomax, trazodone, Neurontin and lorazepam. SOCIAL HISTORY: He is [facility] resident. No recent drugs, tobacco, or alcohol. FAMILY HISTORY: Unable to obtain. REVIEW OF SYSTEMS: Unable to obtain due to the dementia and schizophrenia. PHYSICAL EXAMINATION: GENERAL: Middle-aged male, up in bed, awake, alert, but nonverbal, not in acute distress. VITAL SIGNS: Temperature 97.9 degrees, pulse 86, respiration 18, blood pressure 99/72, and O2 saturation 98% on room air. HEENT: Normocephalic and atraumatic. Pupils are reactive to light. Pale sclera. Dry oral mucosa. NECK: Supple. No lymphadenopathy. CARDIOVASCULAR: Regular rate and rhythm. No murmur or gallop. LUNGS: Clear bilaterally. No wheezing. No rhonchi. Normal breathing effort. ABDOMEN: Soft, nontender, and nondistended. Positive bowel sounds. No hepatosplenomegaly. No ascites. EXTREMITIES: No edema. No cyanosis. SKIN: No rash or hives. LABORATORY AND DIAGNOSTIC DATA: Labs showed white count of 5.7, hemoglobin of 11.8 and platelet count of 126. BUN of 16 and creatinine of 0.6. AST of 476 and ALT of 222. Urinalysis showed +2 leukocyte esterase, WBC 5-10, and few bacteria. Imaging, chest x-ray showed left basilar atelectases or scarring. No acute process. ASSESSMENT AND RECOMMENDATION: 1. Sepsis. We will send blood culture and start cefepime with clindamycin empiric coverage for now. Cannot do vancomycin since he is allergic, unclear what kind of allergy. 2. Urinary tract infection. We will order urinalysis and urine culture and start cefepime empiric coverage. 3. Elevated liver enzymes, unclear etiology at this point. We will screen him for hepatitis. Recommend Gastroenterology consult for further workup and management. 4. Schizophrenia, dementia, bipolar disorder and epilepsy. Recommend Neurology consultation and psychiatric evaluation. Thank you for the consult. ID will continue to follow. Kavin Rolon M.D. DR: SHER JOB#: [id number] CC:
[2016-12-14] MEDS: LORazepam Inj 2mg/ml 1ml IV PRN (23:03)
[2016-12-15] VITALS: BP 104/66
--- NOTE | 2016-12-15 00:31 | History and Physical Report ---
DATE OF ADMISSION: 12/14/2016 TIME SEEN: 3 p.m. CONSULTANTS: 1. Uriel Ortez M.D. 2. Valentina Gardner M.D. 3. Dr. Zepeda. 4. Danyel Rouse M.D. 5. Willem Whalen M.D. CHIEF COMPLAINT: UTI, sepsis, and encephalopathy. BRIEF HISTORY: This is a 46-year-old male from [facility], who was transferred to [facility] for the above-mentioned diagnosis and subsequently stabilized and transferred here to [facility] last night. The patient is currently calm, confused, in bed, and not talking much. PAST MEDICAL HISTORY: UTI, sepsis, dementia, Parkinson, and seizure. PAST SURGICAL HISTORY: Unknown. MEDICATIONS: Abilify, Proscar, Zyprexa, cefepime, clindamycin, tamsulosin, Desyrel, Zofran, and morphine. ALLERGIES: Vancomycin. SOCIAL HISTORY: No smoking, no alcohol, and no intravenous drug abuse. FAMILY HISTORY: Noncontributory. REVIEW OF SYSTEMS: Unavailable. PHYSICAL EXAMINATION: GENERAL: Calm in bed, oriented x1, and in no acute distress. VITAL SIGNS: Showed a temperature of 97 degrees, pulse 77, respirations 19, and blood pressure 128/64. CARDIOVASCULAR: No murmur. LUNGS: Poor air exchange. ABDOMEN: Bowel sounds are positive. Nontender and nondistended. EXTREMITIES: No cyanosis, clubbing, or edema. NEUROLOGIC: The patient is slightly weak in bed. Moves all his extremities. LABORATORY DATA: Lab exam shows white count 4.6, hemoglobin and hematocrit are 12.8 and 36, and platelets 126,000. BMP shows sodium 147, potassium 3.4, and chloride 117. AST and ALT are elevated at 384 and 203. Albumin 1.9. Urine tox is negative. Urinalysis, 2+ leukocyte esterase. ASSESSMENT: 1. Urinary tract infection. 2. Sepsis. 3. Encephalopathy. 4. Seizures. 5. Schizophrenia. 6. Dementia. 7. Parkinson. 8. Anemia. 9. Malnutrition. 10. Pancytopenia. PLAN: 1. Continue premedications. 2. Antibiotics per Infectious Disease. 3. OT, PT, and dietary evaluation. 4. O2 and pulmonary treatment as needed. 5. Resume home medications. 6. Dr. Ortez, Dr. Gardner, Dr. Zepeda, Dr. Rouse, Dr. Whalen, Dr. Smith, and Dr. Ramirez to consult. 7. We will continue to follow this patient medically. Claudio Soria D.O. DR: KRIS JOB#: [id number] CC:
--- NOTE | 2016-12-15 02:32 | Consultation ---
DATE OF CONSULTATION: 12/14/2016 NEPHROLOGY CONSULTATION REFERRING PHYSICIAN: Claudio Soria D.O. REASON FOR CONSULT: Hypernatremia and hypokalemia. HISTORY OF PRESENT ILLNESS: The patient is a 46-year-old male with past medical history significant for Parkinson disease, dementia, and epilepsy, who was transferred here from [facility] with fever. The patient is a halfway resident. He was diagnosed with sepsis and was transferred here for further evaluation. He is awake at this time, in no apparent distress he is a poor historian. Speech is garbled. Therefore, medical history was obtained from medical records. However, the patient denies chest pain. No nausea. No vomiting. No abdominal pain. PAST MEDICAL HISTORY: Significant for dementia, epilepsy, and Parkinson disease. MEDICATIONS: Home medications include acetaminophen 650 mg p.o. q.4 p.r.n., amantadine 100 mg p.o. b.i.d., Abilify 15 mg p.o. daily, calcium carbonate one p.o. b.i.d., Benadryl 25 mg p.o. q.6 hours p.r.n., Proscar 5 mg p.o. daily, gabapentin 300 mg p.o. b.i.d., lorazepam 0.5 mg p.o. q.6 hours p.r.n., Zyprexa 20 mg p.o. b.i.d., Flomax 0.4 mg p.o. at bedtime, trazodone hydrochloride 300 mg p.o. at bedtime, valproic acid 250 mg p.o. b.i.d., Ambien 2.5 mg p.o. at bedtime p.r.n. ALLERGIES: He is allergic to vancomycin. SOCIAL HISTORY: The patient lives in a halfway. No history of alcohol use, smoking, or illicit drug use. REVIEW OF SYSTEMS: A full 12-point review of system was reviewed with the patient, however, information is limited. PHYSICAL EXAMINATION: GENERAL: This is a 46-year-old male, in no apparent distress. VITAL SIGNS: Blood pressure 120/64, heart rate is 77, respiratory rate is 19, temperature is 97.7 degrees, and O2 saturation is 97% on room air. HEENT: Head is normocephalic and atraumatic with moist mucous membranes. Pupils are equal, round, and reactive to light and accommodation. NECK: Supple. No jugular venous distention noted. LUNGS: Clear to auscultation bilaterally. No wheezing. No crackles. CARDIOVASCULAR: Regular rate and rhythm. ABDOMEN: Soft, nontender, and nondistended. Positive bowel sounds in all four quadrants. EXTREMITIES: No edema. No cyanosis. No clubbing. LABORATORY AND DIAGNOSTIC DATA: CBC: White count 4.6, hemoglobin 12.8, hematocrit 36.9, and platelet count of 126. BMP: Sodium 147, potassium 3.4, chloride 117, bicarbonate 21, BUN 15, creatinine 0.6, and blood glucose is 94. Calcium is 7.1. Total bilirubin 0.5. AST 384, ALT 203, and alkaline phosphatase is 37. Total protein is 5.0. Albumin 1.9. Radiologic Findings: Chest x-ray impression: Left basilar atelectasis or scarring, no acute process otherwise. ASSESSMENT: 1. Hypernatremia. 2. Hypokalemia. 3. Parkinson disease. 4. Dementia. 5. Developmental delay. PLAN: 1. Replace potassium. 2. Encourage free water. 3. We will monitor electrolytes and correct as needed. 4. We will start patient on IV fluids. 5. Antibiotics per Infectious Diseases. 6. Monitor neurological status. 7. Monitor the patient's overall response to treatment. Jarvis Ramirez M.D. Yancy Roberts DR: ROMA JOB#: [id number] CC:
[2016-12-15 04:00] VITALS: BP 104/53
[2016-12-15] MEDS: Clindamycin 600mg 50 ML IV SCH ×3 (05:47→22:09)
[2016-12-15 07:39] LABS: MEAN CORPUSCULAR HGB CONC 34.1 G/DL (32.0-36.0); MEAN CORPUSCULAR VOLUME 91 FL (80-99); MEAN PLATELET VOLUME 8.7 FL (6.5-10.1); PLATELET COUNT 162 K/UL (150-450); RED BLOOD COUNT 4.15 M/UL (4.70-6.10); RED CELL DISTRIBUTION WIDTH 15.1 % (11.6-14.8); WHITE BLOOD COUNT 4.7 K/UL (4.8-10.8)
[2016-12-15 07:59] LABS: ALANINE AMINOTRANSFERASE 188 U/L (12-78); ALBUMIN/GLOBULIN RATIO 0.7 (1.0-2.7); ANION GAP 7 (5-15); ASPARTATE AMINO TRANSFERASE 283 U/L (15-37); CALCIUM 7.3 MG/DL (8.5-10.1); CARBON DIOXIDE 24 MMOL/L (21-32); CHLORIDE 117 MMOL/L (98-107); CREATININE 0.7 MG/DL (0.55-1.30); CRP QUANT 0.6 mg/dL (0.00-0.90); GLOMERULAR FILTRATION RATE > 60 mL/min (>60); MAGNESIUM 1.9 MG/DL (1.8-2.4); PHOSPHORUS 2.4 MG/DL (2.5-4.9); POTASSIUM 3.4 MMOL/L (3.5-5.1); SODIUM 148 MMOL/L (136-145); TOTAL PROTEIN 5.4 G/DL (6.4-8.2)
[2016-12-15 08:00] VITALS: BP 100/70
[2016-12-15] MEDS: LORazepam Inj 2mg/ml 1ml IV PRN ×2 (08:30→20:27)
[2016-12-15] MEDS: Heparin 5000 units/ml inj SUBQ SCH ×2 (08:32→20:29)
[2016-12-15] MEDS: Cefepime HCl 2 GM in D5W 110 ML IVPB SCH ×2 (08:34→20:28)
[2016-12-15 09:47] LABS: ERYTHROCYTE SEDIMENTATION RATE 11 MM/HR (0-15)
[2016-12-15 11:18] LABS: ANISOCYTOSIS 1+; BAND NEUTROPHILS % (MANUAL) 0 % (0-8); BASOPHILS % (MANUAL) 0 % (0-2); EOSINOPHILS % (MANUAL) 2 % (0-3); LYMPHOCYTES % (MANUAL) 56 % (20-45); NEUTROPHILS % (MANUAL) 35 % (45-75); PLATELET ESTIMATE ADEQUATE; PLATELET MORPHOLOGY NORMAL; TOTAL CELLS COUNTED 100
[2016-12-15 12:00] VITALS: BP 101/72
--- NOTE | 2016-12-15 13:13 | Neurology Progress Note ---
Interim History Interim History ROS Limited/Unobtainable: Yes Objective Physical Exam Last Vital Signs Date Time Temp Pulse Resp B/P (MAP) Pulse Ox O2 Delivery O2 Flow Rate FiO2 12/15/16 04:00 96.4 60 20 104/53 96 Room Air Laboratory Tests Test 12/15/16 06:45 White Blood Count 4.7 K/UL (4.8-10.8) L Red Blood Count 4.15 M/UL (4.70-6.10) L Hemoglobin 12.9 G/DL (14.2-18.0) L Hematocrit 37.8 % (42.0-52.0) L Mean Corpuscular Volume 91 FL (80-99) Mean Corpuscular Hemoglobin 31.0 PG (27.0-31.0) Mean Corpuscular Hemoglobin Concent 34.1 G/DL (32.0-36.0) Red Cell Distribution Width 15.1 % (11.6-14.8) H Platelet Count 162 K/UL (150-450) Mean Platelet Volume 8.7 FL (6.5-10.1) Neutrophils (%) (Auto) % (45.0-75.0) Lymphocytes (%) (Auto) % (20.0-45.0) Monocytes (%) (Auto) % (1.0-10.0) Eosinophils (%) (Auto) % (0.0-3.0) Basophils (%) (Auto) % (0.0-2.0) Differential Total Cells Counted 100 Neutrophils % (Manual) 35 % (45-75) L Lymphocytes % (Manual) 56 % (20-45) H Monocytes % (Manual) 7 % (1-10) Eosinophils % (Manual) 2 % (0-3) Basophils % (Manual) 0 % (0-2) Band Neutrophils 0 % (0-8) Platelet Estimate Adequate Platelet Morphology Normal Anisocytosis 1+ Erythrocyte Sedimentation Rate 11 MM/HR (0-15) Sodium Level 148 MMOL/L (136-145) H Potassium Level 3.4 MMOL/L (3.5-5.1) L Chloride Level 117 MMOL/L (98-107) H Carbon Dioxide Level 24 MMOL/L (21-32) Anion Gap 7 (5-15) Blood Urea Nitrogen 9 mg/dL (7-18) Creatinine 0.7 MG/DL (0.55-1.30) Estimat Glomerular Filtration Rate > 60 mL/min (>60) Glucose Level 95 MG/DL (74-106) Calcium Level 7.3 MG/DL (8.5-10.1) L Phosphorus Level 2.4 MG/DL (2.5-4.9) L Magnesium Level 1.9 MG/DL (1.8-2.4) Total Bilirubin 0.7 MG/DL (0.2-1.0) Aspartate Amino Transf (AST/SGOT) 283 U/L (15-37) H Alanine Aminotransferase (ALT/SGPT) 188 U/L (12-78) H Alkaline Phosphatase 38 U/L (46-116) L C-Reactive Protein, Quantitative 0.6 mg/dL (0.00-0.90) Total Protein 5.4 G/DL (6.4-8.2) L Albumin 2.2 G/DL (3.4-5.0) L Globulin 3.2 g/dL Albumin/Globulin Ratio 0.7 (1.0-2.7) L Impression/Recommendations Problems: (1) 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
[2016-12-15] MEDS: D5W w/KCl 20mEq 1,000 ML IV SCH (14:09)
--- NOTE | 2016-12-15 14:16 | General Progress Note ---
Assessment/Plan Problem List: (1) Sepsis ICD Codes: A41.9 - Sepsis, unspecified organism SNOMED: 70690820 (2) UTI (urinary tract infection) ICD Codes: N39.0 - Urinary tract infection, site not specified SNOMED: 59392971 (3) Elevated liver enzymes ICD Codes: R74.8 - Abnormal levels of other serum enzymes SNOMED: 072529849, 850098795 (4) Dementia ICD Codes: F03.90 - Unspecified dementia without behavioral disturbance SNOMED: 85223436 (5) Parkinson disease ICD Codes: G20 - Parkinson's disease SNOMED: 30489494 (6) Epilepsia ICD Codes: G40.909 - Epilepsy, unspecified, not intractable, without status epilepticus SNOMED: 20647277 Status: stable, progressing, tolerating diet Assessment/Plan ot pt diet abx cbc bmp am Subjective Constitutional: Reports: weakness Allergies: Coded Allergies: VANCOMYCIN (Verified Allergy, Unknown, 12/13/16) All Systems: reviewed and negative except above Subjective confused in bed Objective Last 24 Hour Vital Signs Date Time Temp Pulse Resp B/P (MAP) Pulse Ox O2 Delivery O2 Flow Rate FiO2 12/15/16 04:00 96.4 60 20 104/53 96 Room Air 12/15/16 00:00 97.7 80 18 104/66 94 Room Air 12/14/16 20:00 97.9 75 18 91/67 96 Room Air 12/14/16 16:00 97.7 67 20 101/58 94 Room Air Intake and Output 12/15/16 12/16/16 19:00 07:00 Intake Total 50 ml Balance 50 ml IV Total 50 ml # Bowel Movements 1 Laboratory Tests 12/15/16 06:45: White Blood Count 4.7L, Red Blood Count 4.15L, Hemoglobin 12.9L, Hematocrit 37.8L, Mean Corpuscular Volume 91, Mean Corpuscular Hemoglobin 31.0, Mean Corpuscular Hemoglobin Concent 34.1, Red Cell Distribution Width 15.1H, Platelet Count 162, Mean Platelet Volume 8.7, Neutrophils (%) (Auto) , Lymphocytes (%) (Auto) , Monocytes (%) (Auto) , Eosinophils (%) (Auto) , Basophils (%) (Auto) , Differential Total Cells Counted 100, Neutrophils % ( Manual) 35L, Lymphocytes % (Manual) 56H, Monocytes % (Manual) 7, Eosinophils % ( Manual) 2, Basophils % (Manual) 0, Band Neutrophils 0, Platelet Estimate Adequate, Platelet Morphology Normal, Anisocytosis 1+, Erythrocyte Sedimentation Rate 11, Sodium Level 148H, Potassium Level 3.4L, Chloride Level 117H, Carbon Dioxide Level 24, Anion Gap 7, Blood Urea Nitrogen 9, Creatinine 0.7, Estimat Glomerular Filtration Rate > 60, Glucose Level 95, Calcium Level 7.3L, Phosphorus Level 2.4L, Magnesium Level 1.9, Total Bilirubin 0.7, Aspartate Amino Transf (AST/SGOT) 283H, Alanine Aminotransferase (ALT/SGPT) 188H , Alkaline Phosphatase 38L, C-Reactive Protein, Quantitative 0.6, Total Protein 5.4L, Albumin 2.2L, Globulin 3.2, Albumin/Globulin Ratio 0.7L Height (Feet): 5 Height (Inches): 7.00 Weight (Pounds): 212 General Appearance: lethargic EENT: normal ENT inspection Neck: normal alignment Cardiovascular: normal peripheral pulses, normal rate, regular rhythm Respiratory/Chest: chest wall non-tender, lungs clear, normal breath sounds Abdomen: normal bowel sounds, non tender, soft Extremities: normal inspection Edema: no edema noted Arm (L), no edema noted Arm (R), no edema noted Leg (L), no edema noted Leg (R), no edema noted Pedal (L), no edema noted Pedal (R), no edema noted Generalized Neurologic: motor weakness Skin: normal pigmentation, warm/dry RADHA GARCIA Dec 15, 2016 14:16
--- NOTE | 2016-12-15 14:17 | Pulmonology Progress Note ---
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 possible sepsis possible UTI elevated LFT ( likely due to Depakote vs hep C infection0 seizure disorder Hepatitis C infection electrolyte imbalance schizophrenia BPH PLAN OF CARE MS floor gentle IV hydration urine tox scrren negative UA with possible UTI urine cx preliminary negative abx ID follows swallow eval done, diet as per ST recommendation with strict aspiration /reflux precautions neuro and psych follows hep panel + hep C per ID will check genotype and viral load for outpatient Rx monitor LFT, trending down CXR no acute findings pain management bowel regimen PT/OT monitor lytes, replace as needed nephro follows IVF changed to dextrose with K supplements continue Proscar and Floamx DVT prophylaxis psych follows, psych medication were reviewed and resumed case discussed and evaluated by supervising physician Subjective Allergies: Coded Allergies: VANCOMYCIN (Verified Allergy, Unknown, 12/13/16) Subjective patient is unable to provide much of history no signs of respiratory distress swallow eval just completed Objective Last 24 Hour Vital Signs Date Time Temp Pulse Resp B/P (MAP) Pulse Ox O2 Delivery O2 Flow Rate FiO2 12/15/16 04:00 96.4 60 20 104/53 96 Room Air 12/15/16 00:00 97.7 80 18 104/66 94 Room Air 12/14/16 20:00 97.9 75 18 91/67 96 Room Air 12/14/16 16:00 97.7 67 20 101/58 94 Room Air Intake and Output 12/15/16 12/16/16 19:00 07:00 Intake Total 50 ml Balance 50 ml IV Total 50 ml # Bowel Movements 1 General Appearance: other - awake, alert, obese male in NAD HEENT: normocephalic, atraumatic Respiratory/Chest: lungs clear, no respiratory distress, no accessory muscle use Cardiovascular: normal rate, regular rhythm, no JVD Abdomen: normal bowel sounds, soft, non tender - obese Extremities: no edema Neurologic/Psychiatric: alert, other - speech garbled, incomprehensible Musculoskeletal: normal muscle bulk Microbiology Date/Time Source Procedure Growth Status 12/13/16 20:10 Blood Blood Culture - Preliminary NO GROWTH AFTER 24 HOURS Resulted 12/13/16 19:50 Blood Blood Culture - Preliminary NO GROWTH AFTER 24 HOURS Resulted 12/13/16 18:50 Nasal Nares MRSA Culture - Final Staphylococcus Aureus - Mrsa Complete 12/13/16 19:00 Indwelling Cath Urine Culture - Preliminary NO GROWTH AFTER 24 HOURS Resulted 12/13/16 18:50 Rectum VRE Culture - Final NO VANCOMYCIN RESISTANT ENTEROCOCCUS ... Complete Laboratory Tests 12/15/16 06:45: White Blood Count 4.7L, Red Blood Count 4.15L, Hemoglobin 12.9L, Hematocrit 37.8L, Mean Corpuscular Volume 91, Mean Corpuscular Hemoglobin 31.0, Mean Corpuscular Hemoglobin Concent 34.1, Red Cell Distribution Width 15.1H, Platelet Count 162, Mean Platelet Volume 8.7, Neutrophils (%) (Auto) , Lymphocytes (%) (Auto) , Monocytes (%) (Auto) , Eosinophils (%) (Auto) , Basophils (%) (Auto) , Differential Total Cells Counted 100, Neutrophils % ( Manual) 35L, Lymphocytes % (Manual) 56H, Monocytes % (Manual) 7, Eosinophils % ( Manual) 2, Basophils % (Manual) 0, Band Neutrophils 0, Platelet Estimate Adequate, Platelet Morphology Normal, Anisocytosis 1+, Erythrocyte Sedimentation Rate 11, Sodium Level 148H, Potassium Level 3.4L, Chloride Level 117H, Carbon Dioxide Level 24, Anion Gap 7, Blood Urea Nitrogen 9, Creatinine 0.7, Estimat Glomerular Filtration Rate > 60, Glucose Level 95, Calcium Level 7.3L, Phosphorus Level 2.4L, Magnesium Level 1.9, Total Bilirubin 0.7, Aspartate Amino Transf (AST/SGOT) 283H, Alanine Aminotransferase (ALT/SGPT) 188H , Alkaline Phosphatase 38L, C-Reactive Protein, Quantitative 0.6, Total Protein 5.4L, Albumin 2.2L, Globulin 3.2, Albumin/Globulin Ratio 0.7L Current Medications Medications (Trade) Dose Ordered Sig/Abhishek Route PRN Reason Start Time Stop Time Status Last Admin Dose Admin Aripiprazole (Abilify) 5 mg DAILY ORAL 12/16/16 09:00 01/15/17 08:59 Cefepime HCl 2 gm/ Dextrose 110 ml @ 220 mls/hr Q12HR IVPB 12/14/16 21:00 12/20/16 20:29 12/15/16 08:34 Clindamycin HCl/ Dextrose 50 ml @ 100 mls/hr Q8H IV 12/14/16 22:00 12/20/16 21:59 12/15/16 14:09 Dextrose (Dextrose 50%) STAT PRN IV Hypoglycemia 12/15/16 15:00 01/12/17 14:59 Dextrose/ Electrolytes 1,000 ml @ 50 mls/hr Q20H IV 12/14/16 19:00 01/13/17 18:59 12/15/16 14:09 Finasteride (Proscar) 5 mg DAILY ORAL 12/15/16 09:00 01/13/17 08:59 12/15/16 08:30 Gabapentin (Neurontin) 300 mg THREE TIMES A DAY ORAL 12/14/16 18:00 01/12/17 19:59 12/15/16 12:07 Heparin Sodium (Porcine) (Heparin 5000 units/ml) 5,000 units EVERY 12 HOURS SUBQ 12/14/16 21:00 01/12/17 20:59 12/15/16 08:32 Levetiracetam (Keppra) 500 mg Q12HR ORAL 12/15/16 14:00 01/14/17 13:59 12/15/16 14:09 Lorazepam (Ativan 2mg/ml 1ml) 0.5 mg Q4H PRN IV For Anxiety 12/14/16 17:00 12/20/16 16:59 12/15/16 08:30 Morphine Sulfate (Morphine Sulfate) 1 mg Q4H PRN IVP PAIN 4-10 12/14/16 18:00 12/20/16 17:59 Olanzapine (ZyPREXA) 5 mg BEDTIME PRN ORAL agitation 12/15/16 21:00 01/13/17 08:59 Ondansetron HCl (Zofran) 4 mg Q6H PRN IVP Nausea & Vomiting 12/14/16 17:00 01/13/17 16:59 Tamsulosin HCl (Flomax) 0.4 mg BEDTIME ORAL 12/14/16 21:00 01/12/17 20:59 12/14/16 20:54 Trazodone HCl (Desyrel) 300 mg BEDTIME ORAL 12/14/16 21:00 01/12/17 20:59 12/14/16 20:55 Raymond DimasLaurel aguilar NP Dec 15, 2016 14:17
--- NOTE | 2016-12-15 15:50 | Infectious Diseases Prog Note ---
Assessment/Plan Problems: (1) Sepsis Assessment & Plan: blood culture at [facility] grew coag negative staph but from one bottle, most likely contaminant , await blood culture results here , continue cefepime with clindamycin empirically (can't give vancomycin since allergic) (2) UTI (urinary tract infection) Assessment & Plan: await urine culture, continue cefepime (3) Elevated liver enzymes Assessment & Plan: due to chronic HCV infection, will order viral load and genotype, recommend treatment with GI as an out patient (4) HCV infection Assessment & Plan: will check his genotype and viral load, recommend treatment as an out patient Subjective ROS Limited/Unobtainable: Yes Allergies: Coded Allergies: VANCOMYCIN (Verified Allergy, Unknown, 12/13/16) Subjective he is up in bed, alert, comfortable, not in distress, confused, with slow response, afebrile Objective Vital Signs Last 24 Hour Vital Signs Date Time Temp Pulse Resp B/P (MAP) Pulse Ox O2 Delivery O2 Flow Rate FiO2 12/15/16 04:00 96.4 60 20 104/53 96 Room Air 12/15/16 00:00 97.7 80 18 104/66 94 Room Air 12/14/16 20:00 97.9 75 18 91/67 96 Room Air 12/14/16 16:00 97.7 67 20 101/58 94 Room Air Height (Feet): 5 Height (Inches): 7.00 Weight (Pounds): 212 General Appearance: WD/WN, no acute distress HEENT: normocephalic, atraumatic, anicteric, mucous membranes moist, PERRL, EOMI, pharynx normal, supple Respiratory/Chest: chest wall non-tender, lungs clear, normal breath sounds, no respiratory distress, no accessory muscle use Cardiovascular: normal peripheral pulses, normal rate, regular rhythm, no gallop/murmur, no JVD Abdomen: normal bowel sounds, soft, non tender, no organomegaly, non distended , no mass, no scars Extremities: no cyanosis, no clubbing Skin: no rash, no lesions, no ulcers Neurologic/Psychiatric: alert, oriented x 3 Lymphatic: no neck adenopathy Musculoskeletal: normal muscle bulk Microbiology Date/Time Source Procedure Growth Status 12/13/16 20:10 Blood Blood Culture - Preliminary NO GROWTH AFTER 24 HOURS Resulted 12/13/16 19:50 Blood Blood Culture - Preliminary NO GROWTH AFTER 24 HOURS Resulted 12/13/16 18:50 Nasal Nares MRSA Culture - Final Staphylococcus Aureus - Mrsa Complete 12/13/16 19:00 Indwelling Cath Urine Culture - Preliminary NO GROWTH AFTER 24 HOURS Resulted 12/13/16 18:50 Rectum VRE Culture - Final NO VANCOMYCIN RESISTANT ENTEROCOCCUS ... Complete Laboratory Tests Test 12/15/16 06:45 White Blood Count 4.7 K/UL (4.8-10.8) L Red Blood Count 4.15 M/UL (4.70-6.10) L Hemoglobin 12.9 G/DL (14.2-18.0) L Hematocrit 37.8 % (42.0-52.0) L Mean Corpuscular Volume 91 FL (80-99) Mean Corpuscular Hemoglobin 31.0 PG (27.0-31.0) Mean Corpuscular Hemoglobin Concent 34.1 G/DL (32.0-36.0) Red Cell Distribution Width 15.1 % (11.6-14.8) H Platelet Count 162 K/UL (150-450) Mean Platelet Volume 8.7 FL (6.5-10.1) Neutrophils (%) (Auto) % (45.0-75.0) Lymphocytes (%) (Auto) % (20.0-45.0) Monocytes (%) (Auto) % (1.0-10.0) Eosinophils (%) (Auto) % (0.0-3.0) Basophils (%) (Auto) % (0.0-2.0) Differential Total Cells Counted 100 Neutrophils % (Manual) 35 % (45-75) L Lymphocytes % (Manual) 56 % (20-45) H Monocytes % (Manual) 7 % (1-10) Eosinophils % (Manual) 2 % (0-3) Basophils % (Manual) 0 % (0-2) Band Neutrophils 0 % (0-8) Platelet Estimate Adequate Platelet Morphology Normal Anisocytosis 1+ Erythrocyte Sedimentation Rate 11 MM/HR (0-15) Sodium Level 148 MMOL/L (136-145) H Potassium Level 3.4 MMOL/L (3.5-5.1) L Chloride Level 117 MMOL/L (98-107) H Carbon Dioxide Level 24 MMOL/L (21-32) Anion Gap 7 (5-15) Blood Urea Nitrogen 9 mg/dL (7-18) Creatinine 0.7 MG/DL (0.55-1.30) Estimat Glomerular Filtration Rate > 60 mL/min (>60) Glucose Level 95 MG/DL (74-106) Calcium Level 7.3 MG/DL (8.5-10.1) L Phosphorus Level 2.4 MG/DL (2.5-4.9) L Magnesium Level 1.9 MG/DL (1.8-2.4) Total Bilirubin 0.7 MG/DL (0.2-1.0) Aspartate Amino Transf (AST/SGOT) 283 U/L (15-37) H Alanine Aminotransferase (ALT/SGPT) 188 U/L (12-78) H Alkaline Phosphatase 38 U/L (46-116) L C-Reactive Protein, Quantitative 0.6 mg/dL (0.00-0.90) Total Protein 5.4 G/DL (6.4-8.2) L Albumin 2.2 G/DL (3.4-5.0) L Globulin 3.2 g/dL Albumin/Globulin Ratio 0.7 (1.0-2.7) L Current Medications Medications (Trade) Dose Ordered Sig/Abhishek Route PRN Reason Start Time Stop Time Status Last Admin Dose Admin Aripiprazole (Abilify) 5 mg DAILY ORAL 12/16/16 09:00 01/15/17 08:59 Cefepime HCl 2 gm/ Dextrose 110 ml @ 220 mls/hr Q12HR IVPB 12/14/16 21:00 12/20/16 20:29 12/15/16 08:34 Clindamycin HCl/ Dextrose 50 ml @ 100 mls/hr Q8H IV 12/14/16 22:00 12/20/16 21:59 12/15/16 14:09 Dextrose (Dextrose 50%) STAT PRN IV Hypoglycemia 12/15/16 15:00 01/12/17 14:59 Dextrose/ Electrolytes 1,000 ml @ 50 mls/hr Q20H IV 12/14/16 19:00 01/13/17 18:59 12/15/16 14:09 Finasteride (Proscar) 5 mg DAILY ORAL 12/15/16 09:00 01/13/17 08:59 12/15/16 08:30 Gabapentin (Neurontin) 300 mg THREE TIMES A DAY ORAL 12/14/16 18:00 01/12/17 19:59 12/15/16 12:07 Heparin Sodium (Porcine) (Heparin 5000 units/ml) 5,000 units EVERY 12 HOURS SUBQ 12/14/16 21:00 01/12/17 20:59 12/15/16 08:32 Levetiracetam (Keppra) 500 mg Q12HR ORAL 12/15/16 14:00 01/14/17 13:59 12/15/16 14:09 Lorazepam (Ativan 2mg/ml 1ml) 0.5 mg Q4H PRN IV For Anxiety 12/14/16 17:00 12/20/16 16:59 12/15/16 08:30 Morphine Sulfate (Morphine Sulfate) 1 mg Q4H PRN IVP PAIN 4-10 12/14/16 18:00 12/20/16 17:59 Olanzapine (ZyPREXA) 5 mg BEDTIME PRN ORAL agitation 12/15/16 21:00 01/13/17 08:59 Ondansetron HCl (Zofran) 4 mg Q6H PRN IVP Nausea & Vomiting 12/14/16 17:00 01/13/17 16:59 Tamsulosin HCl (Flomax) 0.4 mg BEDTIME ORAL 12/14/16 21:00 01/12/17 20:59 12/14/16 20:54 Trazodone HCl (Desyrel) 300 mg BEDTIME ORAL 12/14/16 21:00 01/12/17 20:59 12/14/16 20:55 Kavin Rolon M.D. Dec 15, 2016 15:50
[2016-12-15 16:00] VITALS: BP 96/66
[2016-12-15 20:00] VITALS: BP 132/57
[2016-12-15] MEDS: Tamsulosin 0.4mg cap ORAL SCH (20:27)
--- NOTE | 2016-12-15 23:46 | Consultation ---
History of Present Illness Present Illness HPI 46-year-old male from [facility],who was transferred here to [facility]. the pt has mmp as well as schizophrenia. the pt was placed on several psychotropic and according to sitter and nurse the pt is drowsy and is attempting to come out of bed. during the eval he was unable to provide meaningful hx and was pw waxing and warning of consciousness. Allergies: Coded Allergies: VANCOMYCIN (Verified Allergy, Unknown, 12/13/16) Medication History Scheduled Amantadine HCl (Amantadine), 100 MG ORAL TWICE A DAY, (Reported) Aripiprazole* (Abilify*), 15 MG ORAL DAILY, (Reported) Calcium Carbonate/Vitamin D3 (Oyster Shell 500 Mg + Vit D Tb), 1 EACH PO BID, ( Reported) Finasteride* (Proscar*), 5 MG ORAL DAILY, (Reported) Gabapentin (Neurontin), 300 MG ORAL THREE TIMES A DAY, (Reported) Olanzapine (Zyprexa), 20 MG ORAL BID, (Reported) Tamsulosin Hcl (Tamsulosin Hcl*), 0.4 MG ORAL BEDTIME, (Reported) Trazodone Hcl (Trazodone Hcl), 300 MG ORAL BEDTIME, (Reported) Valproate Sodium (Depakene), 250 MG PO TID, (Reported) Scheduled PRN Acetaminophen* (Acetaminophen 325MG Tablet*), 650 MG ORAL Q4H PRN for Mild Pain/ Temp > 100.5, (Reported) Diphenhydramine Hcl* (Benadryl*), 25 MG ORAL Q6H PRN for Itching, (Reported) Lorazepam* (Lorazepam*), 0.5 MG ORAL Q6HR PRN for Agitation, (Reported) Na Phos,M-B/Na Phos,Di-Ba* (Fleet Enema*), 133 ML RECTAL DAILY PRN for Constipation, (Reported) Zolpidem Tartrate* (Ambien*), 2.5 MG ORAL BEDTIME PRN for Insomnia, (Reported) Patient History Limited by: medical condition History Provided By: Patient, Medical Record, PMD Healthcare decision maker N Resuscitation status Full Code Advanced Directive on File Past Medical/Surgical History Past Medical/Surgical History: (1) Acute chest pain (2) Sepsis (3) UTI (urinary tract infection) (4) Elevated liver enzymes (5) Dementia (6) Parkinson disease (7) Epilepsia (8) HCV infection (9) 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 (10) abnormal liver enzymes, 2/2 depakote/hepC (11) chronic seizure disorder Review of Systems Constitutional: Reports: malaise, weakness Psychiatric: Reports: prior hx, anxiety, depressed feelings, emotional problems Physical Exam General Appearance: no apparent distress, lethargic, confused, overweight Neurologic: disoriented, unresponsiveness, depressed affect Last 24 Hour Vital Signs Date Time Temp Pulse Resp B/P (MAP) Pulse Ox O2 Delivery O2 Flow Rate FiO2 12/15/16 20:00 96.4 55 20 132/57 97 Room Air 12/15/16 16:00 97.0 66 18 96/66 97 Room Air 12/15/16 12:00 97.8 74 18 101/72 95 Room Air 12/15/16 08:00 97.5 74 18 100/70 96 Room Air 12/15/16 04:00 96.4 60 20 104/53 96 Room Air 12/15/16 00:00 97.7 80 18 104/66 94 Room Air Intake and Output 12/15/16 12/16/16 19:00 07:00 Intake Total 1228 ml 360 ml Balance 1228 ml 360 ml Intake Oral 500 ml 90 ml IV Total 728 ml 270 ml # Voids 5 1 # Bowel Movements 3 Laboratory Tests Test 12/15/16 06:45 12/15/16 15:50 White Blood Count 4.7 K/UL (4.8-10.8) L Red Blood Count 4.15 M/UL (4.70-6.10) L Hemoglobin 12.9 G/DL (14.2-18.0) L Hematocrit 37.8 % (42.0-52.0) L Mean Corpuscular Volume 91 FL (80-99) Mean Corpuscular Hemoglobin 31.0 PG (27.0-31.0) Mean Corpuscular Hemoglobin Concent 34.1 G/DL (32.0-36.0) Red Cell Distribution Width 15.1 % (11.6-14.8) H Platelet Count 162 K/UL (150-450) Mean Platelet Volume 8.7 FL (6.5-10.1) Neutrophils (%) (Auto) % (45.0-75.0) Lymphocytes (%) (Auto) % (20.0-45.0) Monocytes (%) (Auto) % (1.0-10.0) Eosinophils (%) (Auto) % (0.0-3.0) Basophils (%) (Auto) % (0.0-2.0) Differential Total Cells Counted 100 Neutrophils % (Manual) 35 % (45-75) L Lymphocytes % (Manual) 56 % (20-45) H Monocytes % (Manual) 7 % (1-10) Eosinophils % (Manual) 2 % (0-3) Basophils % (Manual) 0 % (0-2) Band Neutrophils 0 % (0-8) Platelet Estimate Adequate Platelet Morphology Normal Anisocytosis 1+ Erythrocyte Sedimentation Rate 11 MM/HR (0-15) Sodium Level 148 MMOL/L (136-145) H Potassium Level 3.4 MMOL/L (3.5-5.1) L Chloride Level 117 MMOL/L (98-107) H Carbon Dioxide Level 24 MMOL/L (21-32) Anion Gap 7 (5-15) Blood Urea Nitrogen 9 mg/dL (7-18) Creatinine 0.7 MG/DL (0.55-1.30) Estimat Glomerular Filtration Rate > 60 mL/min (>60) Glucose Level 95 MG/DL (74-106) Calcium Level 7.3 MG/DL (8.5-10.1) L Phosphorus Level 2.4 MG/DL (2.5-4.9) L Magnesium Level 1.9 MG/DL (1.8-2.4) Total Bilirubin 0.7 MG/DL (0.2-1.0) Aspartate Amino Transf (AST/SGOT) 283 U/L (15-37) H Alanine Aminotransferase (ALT/SGPT) 188 U/L (12-78) H Alkaline Phosphatase 38 U/L (46-116) L C-Reactive Protein, Quantitative 0.6 mg/dL (0.00-0.90) Total Protein 5.4 G/DL (6.4-8.2) L Albumin 2.2 G/DL (3.4-5.0) L Globulin 3.2 g/dL Albumin/Globulin Ratio 0.7 (1.0-2.7) L Ammonia 72 umol/L (11.2-31.7) H Height (Feet): 5 Height (Inches): 7.00 Weight (Pounds): 212 Medications Current Medications Medications (Trade) Dose Ordered Sig/Abhishek Route PRN Reason Start Time Stop Time Status Last Admin Dose Admin Cefepime HCl 2 gm/ Dextrose 110 ml @ 220 mls/hr Q12HR IVPB 12/14/16 21:00 12/20/16 20:29 12/15/16 20:28 Clindamycin HCl/ Dextrose 50 ml @ 100 mls/hr Q8H IV 12/14/16 22:00 12/20/16 21:59 12/15/16 22:09 Dextrose (Dextrose 50%) STAT PRN IV Hypoglycemia 12/15/16 15:00 01/12/17 14:59 Dextrose/ Electrolytes 1,000 ml @ 50 mls/hr Q20H IV 12/14/16 19:00 01/13/17 18:59 12/15/16 14:09 Finasteride (Proscar) 5 mg DAILY ORAL 12/15/16 09:00 01/13/17 08:59 12/15/16 08:30 Gabapentin (Neurontin) 300 mg THREE TIMES A DAY ORAL 12/14/16 18:00 01/12/17 19:59 12/15/16 18:06 Heparin Sodium (Porcine) (Heparin 5000 units/ml) 5,000 units EVERY 12 HOURS SUBQ 12/14/16 21:00 01/12/17 20:59 12/15/16 20:29 Levetiracetam (Keppra) 500 mg Q12HR ORAL 12/15/16 14:00 01/14/17 13:59 12/15/16 20:27 Lorazepam (Ativan 2mg/ml 1ml) 0.5 mg Q4H PRN IV For Anxiety 12/14/16 17:00 12/20/16 16:59 12/15/16 20:27 Morphine Sulfate (Morphine Sulfate) 1 mg Q4H PRN IVP PAIN 4-10 12/14/16 18:00 12/20/16 17:59 Olanzapine (ZyPREXA) 5 mg BEDTIME ORAL 12/15/16 21:00 01/14/17 20:59 12/15/16 20:27 Ondansetron HCl (Zofran) 4 mg Q6H PRN IVP Nausea & Vomiting 12/14/16 17:00 01/13/17 16:59 Tamsulosin HCl (Flomax) 0.4 mg BEDTIME ORAL 12/14/16 21:00 01/12/17 20:59 12/15/16 20:27 Assessment/Plan Status: not improved, unchanged Assessment/Plan encephalopathy due to [facility] schizophrenia -will dc all psych meds -start zyprexa -d/w staff Cindy Lechuga M.D. Dec 15, 2016 23:46
[2016-12-16] VITALS: BP 129/69
[2016-12-16 04:35] VITALS: BP 120/59
[2016-12-16] MEDS: Clindamycin 600mg 50 ML IV SCH ×3 (05:31→22:47)
[2016-12-16 08:00] VITALS: BP 104/55
--- NOTE | 2016-12-16 08:48 | Pulmonology Progress Note ---
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 possible sepsis possible UTI elevated LFT ( likely due to Depakote vs hep C infection0 seizure disorder Hepatitis C infection electrolyte imbalance schizophrenia BPH PLAN OF CARE MS floor gentle IV hydration urine tox scrren negative UA with possible UTI urine cx preliminary negative abx ID follows swallow eval done, diet as per ST recommendation with strict aspiration /reflux precautions neuro and psych follows hep panel + hep C per ID will check genotype and viral load for outpatient Rx monitor LFT, trending down CXR no acute findings pain management bowel regimen PT/OT monitor lytes, replace as needed nephro follows IVF changed to dextrose with K supplements continue Proscar and Flomax DVT prophylaxis psych follows, psych medication were reviewed and resumed case discussed and evaluated by supervising physician Subjective Allergies: Coded Allergies: VANCOMYCIN (Verified Allergy, Unknown, 12/13/16) Subjective no signs of respiratory distress denies discomfort Objective Last 24 Hour Vital Signs Date Time Temp Pulse Resp B/P (MAP) Pulse Ox O2 Delivery O2 Flow Rate FiO2 12/16/16 04:35 96.9 57 18 120/59 97 Room Air 12/16/16 00:00 97.2 55 20 129/69 97 12/15/16 20:00 96.4 55 20 132/57 97 Room Air 12/15/16 16:00 97.0 66 18 96/66 97 Room Air 12/15/16 12:00 97.8 74 18 101/72 95 Room Air Intake and Output 12/16/16 12/17/16 19:00 07:00 Intake Total 50 ml Balance 50 ml IV Total 50 ml Objective General Appearance: other - awake, alert, obese male in NAD HEENT: normocephalic, atraumatic Respiratory/Chest: lungs clear, no respiratory distress, no accessory muscle use Cardiovascular: normal rate, regular rhythm, no JVD Abdomen: normal bowel sounds, soft, non tender - obese Extremities: no edema Neurologic/Psychiatric: alert, speech garbled, incomprehensible Musculoskeletal: normal muscle bulk Microbiology Date/Time Source Procedure Growth Status 12/13/16 20:10 Blood Blood Culture - Preliminary NO GROWTH AFTER 48 HOURS Resulted 12/13/16 19:50 Blood Blood Culture - Preliminary NO GROWTH AFTER 48 HOURS Resulted 12/13/16 18:50 Nasal Nares MRSA Culture - Final Staphylococcus Aureus - Mrsa Complete 12/13/16 19:00 Indwelling Cath Urine Culture - Final NO GROWTH AFTER 48 HOURS Complete 12/13/16 18:50 Rectum VRE Culture - Final NO VANCOMYCIN RESISTANT ENTEROCOCCUS ... Complete Laboratory Tests 12/15/16 15:50: Ammonia 72H Current Medications Medications (Trade) Dose Ordered Sig/Abhishek Route PRN Reason Start Time Stop Time Status Last Admin Dose Admin Cefepime HCl 2 gm/ Dextrose 110 ml @ 220 mls/hr Q12HR IVPB 12/14/16 21:00 12/20/16 20:29 12/15/16 20:28 Clindamycin HCl/ Dextrose 50 ml @ 100 mls/hr Q8H IV 12/14/16 22:00 12/20/16 21:59 12/16/16 05:31 Dextrose (Dextrose 50%) STAT PRN IV Hypoglycemia 12/15/16 15:00 01/12/17 14:59 Dextrose/ Electrolytes 1,000 ml @ 50 mls/hr Q20H IV 12/14/16 19:00 01/13/17 18:59 12/15/16 14:09 Finasteride (Proscar) 5 mg DAILY ORAL 12/15/16 09:00 01/13/17 08:59 12/15/16 08:30 Gabapentin (Neurontin) 300 mg THREE TIMES A DAY ORAL 12/14/16 18:00 01/12/17 19:59 12/15/16 18:06 Heparin Sodium (Porcine) (Heparin 5000 units/ml) 5,000 units EVERY 12 HOURS SUBQ 12/14/16 21:00 01/12/17 20:59 12/15/16 20:29 Levetiracetam (Keppra) 500 mg Q12HR ORAL 12/15/16 14:00 01/14/17 13:59 12/15/16 20:27 Lorazepam (Ativan 2mg/ml 1ml) 0.5 mg Q4H PRN IV For Anxiety 12/14/16 17:00 12/20/16 16:59 12/15/16 20:27 Morphine Sulfate (Morphine Sulfate) 1 mg Q4H PRN IVP PAIN 4-10 12/14/16 18:00 12/20/16 17:59 Olanzapine (ZyPREXA) 5 mg BEDTIME ORAL 12/15/16 21:00 01/14/17 20:59 12/15/16 20:27 Ondansetron HCl (Zofran) 4 mg Q6H PRN IVP Nausea & Vomiting 12/14/16 17:00 01/13/17 16:59 Tamsulosin HCl (Flomax) 0.4 mg BEDTIME ORAL 12/14/16 21:00 01/12/17 20:59 12/15/16 20:27 Raymond ([facility])[place] NP Dec 16, 2016 08:48
[2016-12-16] MEDS: LORazepam Inj 2mg/ml 1ml IV PRN ×2 (08:55→15:06)
[2016-12-16] MEDS: Cefepime HCl 2 GM in D5W 110 ML IVPB SCH ×2 (08:56→21:47)
[2016-12-16] MEDS: Heparin 5000 units/ml inj SUBQ SCH ×2 (09:01→21:50)
[2016-12-16] MEDS: D5W w/KCl 20mEq 1,000 ML IV SCH (11:00)
[2016-12-16 11:55] VITALS: BP 102/65
--- NOTE | 2016-12-16 13:48 | General Progress Note ---
Assessment/Plan Problem List: (1) Sepsis ICD Codes: A41.9 - Sepsis, unspecified organism SNOMED: 73702050 (2) UTI (urinary tract infection) ICD Codes: N39.0 - Urinary tract infection, site not specified SNOMED: 38943191 (3) Elevated liver enzymes ICD Codes: R74.8 - Abnormal levels of other serum enzymes SNOMED: 235642926, 128216125 (4) Dementia ICD Codes: F03.90 - Unspecified dementia without behavioral disturbance SNOMED: 70060087 (5) Parkinson disease ICD Codes: G20 - Parkinson's disease SNOMED: 89455329 (6) Epilepsia ICD Codes: G40.909 - Epilepsy, unspecified, not intractable, without status epilepticus SNOMED: 20728073 Status: stable, progressing, tolerating diet Assessment/Plan ot pt diet abx cbc bmp am promsie ltach eval Subjective Constitutional: Reports: weakness Allergies: Coded Allergies: VANCOMYCIN (Verified Allergy, Unknown, 12/13/16) All Systems: reviewed and negative except above Subjective confused in bed Objective Last 24 Hour Vital Signs Date Time Temp Pulse Resp B/P (MAP) Pulse Ox O2 Delivery O2 Flow Rate FiO2 12/16/16 11:55 97.9 72 20 102/65 95 Room Air 12/16/16 08:00 97.8 80 20 104/55 95 Room Air 12/16/16 04:35 96.9 57 18 120/59 97 Room Air 12/16/16 00:00 97.2 55 20 129/69 97 12/15/16 20:00 96.4 55 20 132/57 97 Room Air 12/15/16 16:00 97.0 66 18 96/66 97 Room Air Intake and Output 12/16/16 12/17/16 19:00 07:00 Intake Total 50 ml Balance 50 ml IV Total 50 ml Laboratory Tests 12/15/16 15:50: Ammonia 72H Height (Feet): 5 Height (Inches): 7.00 Weight (Pounds): 212 General Appearance: lethargic, confused EENT: normal ENT inspection Neck: normal alignment Cardiovascular: normal peripheral pulses, normal rate, regular rhythm Respiratory/Chest: chest wall non-tender, lungs clear, normal breath sounds Abdomen: normal bowel sounds, non tender, soft Extremities: normal inspection Edema: no edema noted Arm (L), no edema noted Arm (R), no edema noted Leg (L), no edema noted Leg (R), no edema noted Pedal (L), no edema noted Pedal (R), no edema noted Generalized Neurologic: motor weakness Skin: normal pigmentation, warm/dry RADHA GARCIA Dec 16, 2016 13:48
--- NOTE | 2016-12-16 13:55 | GI Initial Consult Note ---
History of Present Illness General Date patient seen: Dec 16, 2016 Time patient seen: 11:00 Reason for Hospitalization: SEPSIS Referring physician: RADHA GARCIA Reason for Consultation: ENCEPHALOPATHY Present Illness HPI Patient admitted for UTI, sepsis, and encephalopathy. This is a 46-year-old male from [facility], who was transferred to [facility] for the above-mentioned diagnosis and subsequently stabilized and transferred here to [facility] last night. The patient is currently calm, confused, in bed, and not talking much. GI consult for hepatic encephalopathy. HPI as noted above. ROS limited, AMS. Pt seen on floor, confused on restraints NAD with no active s/sx of N/V/D. Patient presents with anemia, transaminitis, elevated ammonia levels and hepatitis C positive. No known history of endoscopy of colonoscopy. Home Meds Reported Medications Olanzapine (ZYPREXA) 20 Mg Tablet, 20 MG ORAL BID, #30 TAB 0 Refills 12/13/16 Valproate Sodium (DEPAKENE) 250 Mg/5 Ml Solution, 250 MG PO TID 12/13/16 Acetaminophen* (ACETAMINOPHEN 325MG TABLET*) 325 Mg Tablet, 650 MG ORAL Q4H Y for Mild Pain/Temp > 100.5, TAB 12/13/16 Trazodone Hcl (TRAZODONE HCL) 300 Mg Tablet, 300 MG ORAL BEDTIME, TAB 12/13/16 Gabapentin (Neurontin) 300 Mg Capsule, 300 MG ORAL THREE TIMES A DAY, #15 CAP 0 Refills 12/13/16 Tamsulosin Hcl (TAMSULOSIN HCL*) 0.4 Mg Cap.er.24h, 0.4 MG ORAL BEDTIME, CAP 12/13/16 Na Phos,M-B/Na Phos,Di-Ba* (FLEET ENEMA*) 133 Ml Enema, 133 ML RECTAL DAILY Y for Constipation, ML 0 Refills 12/13/16 Finasteride* (PROSCAR*) 5 Mg Tablet, 5 MG ORAL DAILY, #30 TAB 0 Refills 12/13/16 Diphenhydramine Hcl* (BENADRYL*) 25 Mg Capsule, 25 MG ORAL Q6H Y for Itching, CAP 12/13/16 Zolpidem Tartrate* (AMBIEN*) 5 Mg Tablet, 2.5 MG ORAL BEDTIME Y for Insomnia, TAB 12/13/16 Lorazepam* (LORAZEPAM*) 0.5 Mg Tablet, 0.5 MG ORAL Q6HR Y for Agitation, TAB 12/13/16 Amantadine HCl (Amantadine) 50 Mg/5 Ml Solution, 100 MG ORAL TWICE A DAY, ML 12/13/16 Aripiprazole* (ABILIFY*) 15 Mg Tablet, 15 MG ORAL DAILY, TAB 0 Refills 12/13/16 Calcium Carbonate/Vitamin D3 (OYSTER SHELL 500 MG + VIT D TB) 1 Each Tablet, 1 EACH PO BID, TAB 12/13/16 Med list reviewed/reconciled: Yes Allergies: Coded Allergies: VANCOMYCIN (Verified Allergy, Unknown, 12/13/16) Patient History PMH Narrative PAST MEDICAL HISTORY: UTI, sepsis, dementia, Parkinson, and seizure. PAST SURGICAL HISTORY: Unknown. Social History: Reports: alcohol use Review of Systems All Other Systems: limited Physical Exam Vital Signs Date Time Temp Pulse Resp B/P (MAP) Pulse Ox O2 Delivery O2 Flow Rate FiO2 12/13/16 17:24 97.9 86 18 99/72 98 Room Air Sp02 EP Interpretation: reviewed Labs Laboratory Tests Test 12/15/16 15:50 Ammonia 72 umol/L (11.2-31.7) H General Appearance: well appearing, no apparent distress, obese Head: normocephalic EENT: PERRL/EOMI, normal ENT inspection Neck: supple Respiratory: normal breath sounds, no respiratory distress Cardiovascular: normal rate Gastrointestinal: soft Genitourinary: no CVA tenderness Musculoskeletal: back normal Neurologic: alert Psychiatric: normal inspection, other - confused Skin: normal inspection, normal color, no rash Lymphatic: normal inspection, no adenopathy Current Medications Current Medications Medications (Trade) Dose Ordered Sig/Abhishek Route PRN Reason Start Time Stop Time Status Last Admin Dose Admin Cefepime HCl 2 gm/ Dextrose 110 ml @ 220 mls/hr Q12HR IVPB 12/14/16 21:00 12/20/16 20:29 12/16/16 08:56 Clindamycin HCl/ Dextrose 50 ml @ 100 mls/hr Q8H IV 12/14/16 22:00 12/20/16 21:59 12/16/16 05:31 Dextrose (Dextrose 50%) STAT PRN IV Hypoglycemia 12/15/16 15:00 01/12/17 14:59 Dextrose/ Electrolytes 1,000 ml @ 50 mls/hr Q20H IV 12/14/16 19:00 01/13/17 18:59 12/15/16 14:09 Finasteride (Proscar) 5 mg DAILY ORAL 12/15/16 09:00 01/13/17 08:59 12/16/16 08:56 Gabapentin (Neurontin) 300 mg THREE TIMES A DAY ORAL 12/14/16 18:00 01/12/17 19:59 12/16/16 08:56 Heparin Sodium (Porcine) (Heparin 5000 units/ml) 5,000 units EVERY 12 HOURS SUBQ 12/14/16 21:00 01/12/17 20:59 12/16/16 09:01 Levetiracetam (Keppra) 500 mg Q12HR ORAL 12/15/16 14:00 01/14/17 13:59 12/16/16 08:56 Lorazepam (Ativan 2mg/ml 1ml) 0.5 mg Q4H PRN IV For Anxiety 12/14/16 17:00 12/20/16 16:59 12/16/16 08:55 Morphine Sulfate (Morphine Sulfate) 1 mg Q4H PRN IVP PAIN 4-10 12/14/16 18:00 12/20/16 17:59 Olanzapine (ZyPREXA) 5 mg BEDTIME ORAL 12/15/16 21:00 01/14/17 20:59 12/15/16 20:27 Ondansetron HCl (Zofran) 4 mg Q6H PRN IVP Nausea & Vomiting 12/14/16 17:00 01/13/17 16:59 Tamsulosin HCl (Flomax) 0.4 mg BEDTIME ORAL 12/14/16 21:00 01/12/17 20:59 12/15/16 20:27 GI: Plan Problems: (1) Hepatitis C (2) Hepatic encephalopathy (3) Dementia (4) Elevated liver enzymes (5) Transaminitis Plan Hepatitis C positive >> will require outpatient treatment consider sitter for safety obtain abdominal U/S start lactulose + xifaxin, monitor ammonia levels anemia work up OB stool r/o GI bleed monitor H&H, prn transfusions bowel regime ppi fu labs Discussed with Dr. Rouse. Thank you for this patient referral, we will follow. Elena Parkinson NAubreePAubree Dec 16, 2016 13:55
--- NOTE | 2016-12-16 14:52 | General Progress Note ---
Assessment/Plan Status: stable Subjective Neurologic/Psychiatric: Reports: anxiety, depressed, emotional problems Allergies: Coded Allergies: VANCOMYCIN (Verified Allergy, Unknown, 12/13/16) Objective Last 24 Hour Vital Signs Date Time Temp Pulse Resp B/P (MAP) Pulse Ox O2 Delivery O2 Flow Rate FiO2 12/16/16 11:55 97.9 72 20 102/65 95 Room Air 12/16/16 08:00 97.8 80 20 104/55 95 Room Air 12/16/16 04:35 96.9 57 18 120/59 97 Room Air 12/16/16 00:00 97.2 55 20 129/69 97 12/15/16 20:00 96.4 55 20 132/57 97 Room Air 12/15/16 16:00 97.0 66 18 96/66 97 Room Air Intake and Output 12/16/16 12/17/16 19:00 07:00 Intake Total 50 ml Balance 50 ml IV Total 50 ml Laboratory Tests 12/15/16 15:50: Ammonia 72H Height (Feet): 5 Height (Inches): 7.00 Weight (Pounds): 212 General Appearance: no apparent distress, alert, lethargic, confused, overweight Neurologic: disoriented, depressed affect Cindy Lechuga M.D. Dec 16, 2016 14:52
--- NOTE | 2016-12-16 15:57 | Nephrology Progress Note ---
Assessment/Plan Problem List: (1) Sepsis (2) Dementia (3) Parkinson disease (4) Epilepsia Plan Lytes improved, will monitor Monitor neuro status Monitor intake and output Monitor H&H, transfuse PRN Pain management prn PPI DVT prophylaxis AM labs Subjective Constitutional: Denies: no symptoms, chills, diaphoresis, fever, malaise, weakness, other HEENT: Denies: no symptoms, eye pain, blurred vision, tearing, double vision, ear pain, ear discharge, nose pain, nose congestion, throat pain, throat swelling, mouth pain, mouth swelling, other Genitourinary: Denies: no symptoms, burning, discharge, frequency, flank pain, hematuria, incontinence, pain, urgency, other Neurologic/Psychiatric: Denies: no symptoms, anxiety, depressed, emotional problems, headache, numbness, paresthesia, pre-existing deficit, seizure, tingling, tremors, weakness, other Subjective In bed, in no apparent distress, fell asleep while talking Objective Objective Last 24 Hour Vital Signs Date Time Temp Pulse Resp B/P (MAP) Pulse Ox O2 Delivery O2 Flow Rate FiO2 12/16/16 11:55 97.9 72 20 102/65 95 Room Air 12/16/16 08:00 97.8 80 20 104/55 95 Room Air 12/16/16 04:35 96.9 57 18 120/59 97 Room Air 12/16/16 00:00 97.2 55 20 129/69 97 12/15/16 20:00 96.4 55 20 132/57 97 Room Air 12/15/16 16:00 97.0 66 18 96/66 97 Room Air Intake and Output 12/16/16 12/17/16 19:00 07:00 Intake Total 50 ml Balance 50 ml IV Total 50 ml Height (Feet): 5 Height (Inches): 7.00 Weight (Pounds): 212 General Appearance: no apparent distress EENT: normal ENT inspection Neck: non-tender, normal alignment Cardiovascular: regular rhythm, no JVD Respiratory/Chest: normal breath sounds, no respiratory distress Abdomen: soft, no organomegaly Extremities: non-tender, normal inspection Neurologic: disoriented Yancy Roberts N.P. Dec 16, 2016 15:57
[2016-12-16 16:04] VITALS: BP 121/52
--- NOTE | 2016-12-16 18:37 | Infectious Diseases Prog Note ---
Assessment/Plan Problems: (1) Sepsis Assessment & Plan: blood culture at [facility] grew coag negative staph but from one bottle, most likely contaminant , await blood culture results here , continue cefepime with clindamycin empirically (can't give vancomycin since allergic) (2) UTI (urinary tract infection) Assessment & Plan: await urine culture, continue cefepime (3) Elevated liver enzymes Assessment & Plan: due to chronic HCV infection, will order viral load and genotype, recommend treatment with GI as an out patient (4) HCV infection Assessment & Plan: will check his genotype and viral load, recommend treatment as an out patient Subjective ROS Limited/Unobtainable: Yes Allergies: Coded Allergies: VANCOMYCIN (Verified Allergy, Unknown, 12/13/16) Subjective he is up in bed, alert, comfortable, not in distress, confused, with slow response, afebrile Objective Vital Signs Last 24 Hour Vital Signs Date Time Temp Pulse Resp B/P (MAP) Pulse Ox O2 Delivery O2 Flow Rate FiO2 12/16/16 16:04 97.5 87 21 121/52 95 Room Air 12/16/16 11:55 97.9 72 20 102/65 95 Room Air 12/16/16 08:00 97.8 80 20 104/55 95 Room Air 12/16/16 04:35 96.9 57 18 120/59 97 Room Air 12/16/16 00:00 97.2 55 20 129/69 97 12/15/16 20:00 96.4 55 20 132/57 97 Room Air Height (Feet): 5 Height (Inches): 7.00 Weight (Pounds): 212 General Appearance: WD/WN, no acute distress HEENT: normocephalic, atraumatic, anicteric, mucous membranes moist Respiratory/Chest: chest wall non-tender, lungs clear, normal breath sounds, no respiratory distress, decreased breath sounds, crackles/rales Cardiovascular: normal peripheral pulses, normal rate, regular rhythm, no gallop/murmur, no JVD Abdomen: normal bowel sounds, soft, non tender, no organomegaly, non distended , no mass, no scars Genitourinary: normal external genitalia Extremities: no cyanosis, no clubbing Skin: no rash, no lesions, no ulcers Neurologic/Psychiatric: alert Microbiology Date/Time Source Procedure Growth Status 12/13/16 20:10 Blood Blood Culture - Preliminary NO GROWTH AFTER 48 HOURS Resulted 12/13/16 19:50 Blood Blood Culture - Preliminary NO GROWTH AFTER 48 HOURS Resulted 12/13/16 18:50 Nasal Nares MRSA Culture - Final Staphylococcus Aureus - Mrsa Complete 12/13/16 19:00 Indwelling Cath Urine Culture - Final NO GROWTH AFTER 48 HOURS Complete 12/13/16 18:50 Rectum VRE Culture - Final NO VANCOMYCIN RESISTANT ENTEROCOCCUS ... Complete Current Medications Medications (Trade) Dose Ordered Sig/Abhishek Route PRN Reason Start Time Stop Time Status Last Admin Dose Admin Cefepime HCl 2 gm/ Dextrose 110 ml @ 220 mls/hr Q12HR IVPB 12/14/16 21:00 12/20/16 20:29 12/16/16 08:56 Clindamycin HCl/ Dextrose 50 ml @ 100 mls/hr Q8H IV 12/14/16 22:00 12/20/16 21:59 12/16/16 15:06 Dextrose (Dextrose 50%) STAT PRN IV Hypoglycemia 12/15/16 15:00 01/12/17 14:59 Dextrose/ Electrolytes 1,000 ml @ 50 mls/hr Q20H IV 12/14/16 19:00 01/13/17 18:59 12/15/16 14:09 Finasteride (Proscar) 5 mg DAILY ORAL 12/15/16 09:00 01/13/17 08:59 12/16/16 08:56 Gabapentin (Neurontin) 300 mg THREE TIMES A DAY ORAL 12/14/16 18:00 01/12/17 19:59 12/16/16 15:06 Heparin Sodium (Porcine) (Heparin 5000 units/ml) 5,000 units EVERY 12 HOURS SUBQ 12/14/16 21:00 01/12/17 20:59 12/16/16 09:01 Lactulose (Cephulac) 10 gm THREE TIMES A DAY ORAL 12/16/16 18:00 01/15/17 17:59 Levetiracetam (Keppra) 500 mg Q12HR ORAL 12/15/16 14:00 01/14/17 13:59 12/16/16 08:56 Lorazepam (Ativan 2mg/ml 1ml) 0.5 mg Q4H PRN IV For Anxiety 12/14/16 17:00 12/20/16 16:59 12/16/16 15:06 Morphine Sulfate (Morphine Sulfate) 1 mg Q4H PRN IVP PAIN 4-10 12/14/16 18:00 12/20/16 17:59 Olanzapine (ZyPREXA) 5 mg BEDTIME ORAL 12/15/16 21:00 01/14/17 20:59 12/15/16 20:27 Ondansetron HCl (Zofran) 4 mg Q6H PRN IVP Nausea & Vomiting 12/14/16 17:00 01/13/17 16:59 Pantoprazole (Protonix) 40 mg DAILY IVP 12/17/16 09:00 01/16/17 08:59 Rifaximin (Xifaxan) 550 mg EVERY 12 HOURS ORAL 12/16/16 21:00 12/23/16 20:59 Tamsulosin HCl (Flomax) 0.4 mg BEDTIME ORAL 12/14/16 21:00 01/12/17 20:59 12/15/16 20:27 Kavin Rolon M.D. Dec 16, 2016 18:37
[2016-12-16] MEDS: Lactulose 10gm/15ml UDC ORAL SCH (18:58)
[2016-12-16 19:54] VITALS: BP 95/54
[2016-12-16] MEDS: Tamsulosin 0.4mg cap ORAL SCH (21:47)
[2016-12-17] VITALS: BP 96/57
[2016-12-17 04:00] VITALS: BP 93/58
[2016-12-17] MEDS: D5W w/KCl 20mEq 1,000 ML IV SCH (05:09)
[2016-12-17] MEDS: Clindamycin 600mg 50 ML IV SCH (05:09)
[2016-12-17 08:00] VITALS: BP 102/56
--- NOTE | 2016-12-17 08:17 | General Progress Note ---
Assessment/Plan Problem List: (1) Elevated liver enzymes ICD Codes: R74.8 - Abnormal levels of other serum enzymes SNOMED: 319749802, 998426478 (2) HCV infection ICD Codes: B19.20 - Unspecified viral hepatitis C without hepatic coma SNOMED: 17108320 (3) chronic seizure disorder (4) Hepatic encephalopathy ICD Codes: K72.90 - Hepatic failure, unspecified without coma SNOMED: 56879139 Assessment/Plan lactulose and Xifaxan check ceruloplasmin fu abd us consider EGd on Monday for EV evaluation dc ppi Subjective ROS Limited/Unobtainable: Yes Allergies: Coded Allergies: VANCOMYCIN (Verified Allergy, Unknown, 12/13/16) Subjective wants to eat Objective Last 24 Hour Vital Signs Date Time Temp Pulse Resp B/P (MAP) Pulse Ox O2 Delivery O2 Flow Rate FiO2 12/17/16 04:00 97.0 76 20 93/58 98 Room Air 12/17/16 00:00 97.8 63 20 96/57 100 Room Air 12/16/16 19:54 96.3 71 20 95/54 93 Room Air 12/16/16 16:04 97.5 87 21 121/52 95 Room Air 12/16/16 11:55 97.9 72 20 102/65 95 Room Air Intake and Output 12/17/16 12/18/16 19:00 07:00 Intake Total 50 ml Balance 50 ml IV Total 50 ml Height (Feet): 5 Height (Inches): 7.00 Weight (Pounds): 212 General Appearance: alert, confused EENT: normal ENT inspection Neck: supple Cardiovascular: normal rate Respiratory/Chest: lungs clear Abdomen: normal bowel sounds, non tender, soft Extremities: non-tender LINDA LAZO Dec 17, 2016 08:17
[2016-12-17] MEDS: LORazepam Inj 2mg/ml 1ml IV PRN ×2 (08:31→23:23)
[2016-12-17] MEDS ORDERED: Pantoprazole Inj IVP SCH (09:00)
[2016-12-17] MEDS: Cefepime HCl 2 GM in D5W 110 ML IVPB SCH ×2 (09:00→10:37)
[2016-12-17 10:13] LABS: BASOPHILS % (AUTO) 1.1 % (0.0-2.0); EOSINOPHILS % (AUTO) 1.6 % (0.0-3.0); LYMPHOCYTES % (AUTO) 35.7 % (20.0-45.0); MEAN CORPUSCULAR HEMOGLOBIN 31.1 PG (27.0-31.0); MEAN CORPUSCULAR HGB CONC 34.2 G/DL (32.0-36.0); MEAN CORPUSCULAR VOLUME 91 FL (80-99); MONOCYTES % (AUTO) 4.8 % (1.0-10.0); NEUTROPHILS % (AUTO) 56.9 % (45.0-75.0); PLATELET COUNT 177 K/UL (150-450); RED BLOOD COUNT 4.36 M/UL (4.70-6.10); RED CELL DISTRIBUTION WIDTH 15.5 % (11.6-14.8); WHITE BLOOD COUNT 5.8 K/UL (4.8-10.8)
--- NOTE | 2016-12-17 10:20 | Pulmonology Progress Note ---
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 possible sepsis possible UTI elevated LFT ( likely due to Depakote vs hep C infection0 seizure disorder Hepatitis C infection electrolyte imbalance schizophrenia BPH PLAN OF CARE MS floor gentle IV hydration urine tox scrren negative UA with possible UTI urine cx preliminary negative abx ID follows swallow eval done, diet as per ST recommendation with strict aspiration /reflux precautions neuro and psych follows hep panel + hep C per ID will check genotype and viral load for outpatient Rx monitor LFT, trending down CXR no acute findings pain management bowel regimen PT/OT monitor lytes, replace as needed nephro follows IVF changed to dextrose with K supplements continue Proscar and Flomax DVT prophylaxis psych follows, psych medication were reviewed and resumed dc plan as per PMD case discussed and evaluated by supervising physician Subjective Allergies: Coded Allergies: VANCOMYCIN (Verified Allergy, Unknown, 12/13/16) Subjective no signs of respiratory distress denies discomfort Objective Last 24 Hour Vital Signs Date Time Temp Pulse Resp B/P (MAP) Pulse Ox O2 Delivery O2 Flow Rate FiO2 12/17/16 04:00 97.0 76 20 93/58 98 Room Air 12/17/16 00:00 97.8 63 20 96/57 100 Room Air 12/16/16 19:54 96.3 71 20 95/54 93 Room Air 12/16/16 16:04 97.5 87 21 121/52 95 Room Air 12/16/16 11:55 97.9 72 20 102/65 95 Room Air Intake and Output 12/17/16 12/18/16 18:59 06:59 Intake Total 50 ml Balance 50 ml IV Total 50 ml Objective General Appearance: other - awake, alert, obese male in NAD HEENT: normocephalic, atraumatic Respiratory/Chest: lungs clear, no respiratory distress, no accessory muscle use Cardiovascular: normal rate, regular rhythm, no JVD Abdomen: normal bowel sounds, soft, non tender - obese Extremities: no edema Neurologic/Psychiatric: alert, speech garbled, incomprehensible Musculoskeletal: normal muscle bulk Laboratory Tests 12/17/16 09:35: White Blood Count 5.8, Red Blood Count 4.36L, Hemoglobin 13.6L, Hematocrit 39.7L , Mean Corpuscular Volume 91, Mean Corpuscular Hemoglobin 31.1H, Mean Corpuscular Hemoglobin Concent 34.2, Red Cell Distribution Width 15.5H, Platelet Count 177, Mean Platelet Volume 9.0, Neutrophils (%) (Auto) 56.9, Lymphocytes (%) (Auto) 35.7, Monocytes (%) (Auto) 4.8, Eosinophils (%) (Auto) 1.6, Basophils (%) (Auto) 1.1, Sodium Level [Pending], Potassium Level [Pending] , Chloride Level [Pending], Carbon Dioxide Level [Pending], Blood Urea Nitrogen [Pending], Creatinine [Pending], Estimat Glomerular Filtration Rate [Pending], Glucose Level [Pending], Calcium Level [Pending], Total Bilirubin [Pending], Aspartate Amino Transf (AST/SGOT) [Pending], Alanine Aminotransferase (ALT/SGPT ) [Pending], Alkaline Phosphatase [Pending], Total Protein [Pending], Albumin [ Pending], Globulin [Pending], Alpha Fetoprotein [Pending], Vitamin B12 Level [ Pending], Folate [Pending] Current Medications Medications (Trade) Dose Ordered Sig/Abhishek Route PRN Reason Start Time Stop Time Status Last Admin Dose Admin Cefepime HCl 2 gm/ Dextrose 110 ml @ 220 mls/hr Q12HR IVPB 12/14/16 21:00 12/20/16 20:29 12/16/16 21:47 Clindamycin HCl/ Dextrose 50 ml @ 100 mls/hr Q8H IV 12/14/16 22:00 12/20/16 21:59 12/17/16 05:09 Dextrose (Dextrose 50%) STAT PRN IV Hypoglycemia 12/15/16 15:00 01/12/17 14:59 Dextrose/ Electrolytes 1,000 ml @ 50 mls/hr Q20H IV 12/14/16 19:00 01/13/17 18:59 12/17/16 05:09 Finasteride (Proscar) 5 mg DAILY ORAL 12/15/16 09:00 01/13/17 08:59 12/16/16 08:56 Gabapentin (Neurontin) 300 mg THREE TIMES A DAY ORAL 12/14/16 18:00 01/12/17 19:59 12/16/16 18:48 Heparin Sodium (Porcine) (Heparin 5000 units/ml) 5,000 units EVERY 12 HOURS SUBQ 12/14/16 21:00 01/12/17 20:59 12/16/16 21:50 Lactulose (Cephulac) 10 gm THREE TIMES A DAY ORAL 12/16/16 18:00 01/15/17 17:59 12/16/16 18:58 Levetiracetam (Keppra) 500 mg Q12HR ORAL 12/15/16 14:00 01/14/17 13:59 12/16/16 21:47 Lorazepam (Ativan 2mg/ml 1ml) 0.5 mg Q4H PRN IV For Anxiety 12/14/16 17:00 12/20/16 16:59 12/17/16 08:31 Morphine Sulfate (Morphine Sulfate) 1 mg Q4H PRN IVP PAIN 4-10 12/14/16 18:00 12/20/16 17:59 Olanzapine (ZyPREXA) 5 mg BEDTIME ORAL 12/15/16 21:00 01/14/17 20:59 12/16/16 21:47 Ondansetron HCl (Zofran) 4 mg Q6H PRN IVP Nausea & Vomiting 12/14/16 17:00 01/13/17 16:59 Rifaximin (Xifaxan) 550 mg EVERY 12 HOURS ORAL 12/16/16 21:00 12/23/16 20:59 12/16/16 21:47 Tamsulosin HCl (Flomax) 0.4 mg BEDTIME ORAL 12/14/16 21:00 01/12/17 20:59 12/16/16 21:47 Laurel Andrade NP (Vanchtein) Dec 17, 2016 10:20
--- NOTE | 2016-12-17 10:24 | General Progress Note ---
Assessment/Plan Problem List: (1) Sepsis ICD Codes: A41.9 - Sepsis, unspecified organism SNOMED: 06104758 (2) UTI (urinary tract infection) ICD Codes: N39.0 - Urinary tract infection, site not specified SNOMED: 47980205 (3) Elevated liver enzymes ICD Codes: R74.8 - Abnormal levels of other serum enzymes SNOMED: 504223761, 161598866 (4) Dementia ICD Codes: F03.90 - Unspecified dementia without behavioral disturbance SNOMED: 10753517 (5) Parkinson disease ICD Codes: G20 - Parkinson's disease SNOMED: 07783055 (6) Epilepsia ICD Codes: G40.909 - Epilepsy, unspecified, not intractable, without status epilepticus SNOMED: 00634378 Status: stable, progressing, tolerating diet Assessment/Plan ot pt diet abx cbc bmp am promsie ltach eval Subjective Constitutional: Reports: weakness Allergies: Coded Allergies: VANCOMYCIN (Verified Allergy, Unknown, 12/13/16) All Systems: reviewed and negative except above Subjective confused in bed Objective Last 24 Hour Vital Signs Date Time Temp Pulse Resp B/P (MAP) Pulse Ox O2 Delivery O2 Flow Rate FiO2 12/17/16 04:00 97.0 76 20 93/58 98 Room Air 12/17/16 00:00 97.8 63 20 96/57 100 Room Air 12/16/16 19:54 96.3 71 20 95/54 93 Room Air 12/16/16 16:04 97.5 87 21 121/52 95 Room Air 12/16/16 11:55 97.9 72 20 102/65 95 Room Air Intake and Output 12/17/16 12/18/16 19:00 07:00 Intake Total 50 ml Balance 50 ml IV Total 50 ml Laboratory Tests 12/17/16 09:35: White Blood Count 5.8, Red Blood Count 4.36L, Hemoglobin 13.6L, Hematocrit 39.7L , Mean Corpuscular Volume 91, Mean Corpuscular Hemoglobin 31.1H, Mean Corpuscular Hemoglobin Concent 34.2, Red Cell Distribution Width 15.5H, Platelet Count 177, Mean Platelet Volume 9.0, Neutrophils (%) (Auto) 56.9, Lymphocytes (%) (Auto) 35.7, Monocytes (%) (Auto) 4.8, Eosinophils (%) (Auto) 1.6, Basophils (%) (Auto) 1.1, Sodium Level [Pending], Potassium Level [Pending] , Chloride Level [Pending], Carbon Dioxide Level [Pending], Blood Urea Nitrogen [Pending], Creatinine [Pending], Estimat Glomerular Filtration Rate [Pending], Glucose Level [Pending], Calcium Level [Pending], Total Bilirubin [Pending], Aspartate Amino Transf (AST/SGOT) [Pending], Alanine Aminotransferase (ALT/SGPT ) [Pending], Alkaline Phosphatase [Pending], Total Protein [Pending], Albumin [ Pending], Globulin [Pending], Alpha Fetoprotein [Pending], Vitamin B12 Level [ Pending], Folate [Pending] Height (Feet): 5 Height (Inches): 7.00 Weight (Pounds): 212 General Appearance: lethargic EENT: normal ENT inspection Neck: normal alignment Cardiovascular: normal peripheral pulses, normal rate, regular rhythm Respiratory/Chest: chest wall non-tender, lungs clear, normal breath sounds Abdomen: normal bowel sounds, non tender, soft Extremities: normal inspection Edema: no edema noted Arm (L), no edema noted Arm (R), no edema noted Leg (L), no edema noted Leg (R), no edema noted Pedal (L), no edema noted Pedal (R), no edema noted Generalized Neurologic: motor weakness Skin: normal pigmentation, warm/dry RADHA GARCIA Dec 17, 2016 10:24
[2016-12-17] MEDS: Lactulose 10gm/15ml UDC ORAL SCH ×3 (10:37→17:57)
[2016-12-17] MEDS: Heparin 5000 units/ml inj SUBQ SCH ×2 (10:39→20:16)
[2016-12-17 10:55] LABS: FOLIC ACID 12.3 NG/ML (3.1-17.5)
[2016-12-17 12:00] VITALS: BP 103/64
[2016-12-17 13:27] LABS: ALANINE AMINOTRANSFERASE 149 U/L (12-78); ALBUMIN/GLOBULIN RATIO 0.8 (1.0-2.7); ANION GAP 10 (5-15); ASPARTATE AMINO TRANSFERASE 114 U/L (15-37); CARBON DIOXIDE 21 MMOL/L (21-32); CHLORIDE 109 MMOL/L (98-107); CREATININE 0.5 MG/DL (0.55-1.30); GLOMERULAR FILTRATION RATE > 60 mL/min (>60); POTASSIUM 3.4 MMOL/L (3.5-5.1); SODIUM 140 MMOL/L (136-145); TOTAL PROTEIN 5.8 G/DL (6.4-8.2)
--- NOTE | 2016-12-17 15:27 | Infectious Diseases Prog Note ---
Assessment/Plan Problems: (1) Sepsis Assessment & Plan: blood culture at [facility] grew coag negative staph but from one bottle only , most likely contaminant , blood culture results here are negative , will stop cefepime with clindamycin empirically , since all cultures are negative, monitor off antibiotics (2) UTI (urinary tract infection) Assessment & Plan: with negative urine culture, will stop cefepime (3) Elevated liver enzymes Assessment & Plan: due to chronic HCV infection, will order viral load and genotype, recommend treatment with GI as an out patient (4) HCV infection Assessment & Plan: will check his genotype and viral load, recommend treatment as an out patient Subjective ROS Limited/Unobtainable: Yes Allergies: Coded Allergies: VANCOMYCIN (Verified Allergy, Unknown, 12/13/16) Subjective he is up in bed, alert, comfortable, not in distress, confused, with slow response, afebrile Objective Vital Signs Last 24 Hour Vital Signs Date Time Temp Pulse Resp B/P (MAP) Pulse Ox O2 Delivery O2 Flow Rate FiO2 12/17/16 08:00 97.5 76 102/56 98 Room Air 12/17/16 04:00 97.0 76 20 93/58 98 Room Air 12/17/16 00:00 97.8 63 20 96/57 100 Room Air 12/16/16 19:54 96.3 71 20 95/54 93 Room Air 12/16/16 16:04 97.5 87 21 121/52 95 Room Air Height (Feet): 5 Height (Inches): 7.00 Weight (Pounds): 212 General Appearance: WD/WN, no acute distress HEENT: normocephalic, atraumatic, anicteric, mucous membranes moist Respiratory/Chest: chest wall non-tender, lungs clear, normal breath sounds, no respiratory distress, no accessory muscle use Cardiovascular: normal peripheral pulses, normal rate, regular rhythm, no gallop/murmur, no JVD Abdomen: normal bowel sounds, soft, non tender, no organomegaly, non distended , no mass Extremities: no cyanosis, no clubbing Skin: no rash, no lesions Neurologic/Psychiatric: alert, oriented x 3, responsive Lymphatic: no neck adenopathy, no groin adenopathy Musculoskeletal: normal muscle bulk Laboratory Tests Test 12/17/16 09:35 White Blood Count 5.8 K/UL (4.8-10.8) Red Blood Count 4.36 M/UL (4.70-6.10) L Hemoglobin 13.6 G/DL (14.2-18.0) L Hematocrit 39.7 % (42.0-52.0) L Mean Corpuscular Volume 91 FL (80-99) Mean Corpuscular Hemoglobin 31.1 PG (27.0-31.0) H Mean Corpuscular Hemoglobin Concent 34.2 G/DL (32.0-36.0) Red Cell Distribution Width 15.5 % (11.6-14.8) H Platelet Count 177 K/UL (150-450) Mean Platelet Volume 9.0 FL (6.5-10.1) Neutrophils (%) (Auto) 56.9 % (45.0-75.0) Lymphocytes (%) (Auto) 35.7 % (20.0-45.0) Monocytes (%) (Auto) 4.8 % (1.0-10.0) Eosinophils (%) (Auto) 1.6 % (0.0-3.0) Basophils (%) (Auto) 1.1 % (0.0-2.0) Sodium Level 140 MMOL/L (136-145) Potassium Level 3.4 MMOL/L (3.5-5.1) L Chloride Level 109 MMOL/L (98-107) H Carbon Dioxide Level 21 MMOL/L (21-32) Anion Gap 10 (5-15) Blood Urea Nitrogen 6 mg/dL (7-18) L Creatinine 0.5 MG/DL (0.55-1.30) L Estimat Glomerular Filtration Rate > 60 mL/min (>60) Glucose Level 93 MG/DL (74-106) Calcium Level 8.0 MG/DL (8.5-10.1) L Total Bilirubin 0.6 MG/DL (0.2-1.0) Aspartate Amino Transf (AST/SGOT) 114 U/L (15-37) H Alanine Aminotransferase (ALT/SGPT) 149 U/L (12-78) H Alkaline Phosphatase 43 U/L (46-116) L Total Protein 5.8 G/DL (6.4-8.2) L Albumin 2.5 G/DL (3.4-5.0) L Globulin 3.3 g/dL Albumin/Globulin Ratio 0.8 (1.0-2.7) L Alpha Fetoprotein Pending Vitamin B12 Level 828 PG/ML (193-986) Folate 12.3 NG/ML (3.1-17.5) Current Medications Medications (Trade) Dose Ordered Sig/Abhishek Route PRN Reason Start Time Stop Time Status Last Admin Dose Admin Dextrose (Dextrose 50%) STAT PRN IV Hypoglycemia 12/15/16 15:00 01/12/17 14:59 Dextrose/ Electrolytes 1,000 ml @ 50 mls/hr Q20H IV 12/14/16 19:00 01/13/17 18:59 12/17/16 05:09 Finasteride (Proscar) 5 mg DAILY ORAL 12/15/16 09:00 01/13/17 08:59 12/17/16 10:37 Gabapentin (Neurontin) 300 mg THREE TIMES A DAY ORAL 12/14/16 18:00 01/12/17 19:59 12/17/16 13:36 Heparin Sodium (Porcine) (Heparin 5000 units/ml) 5,000 units EVERY 12 HOURS SUBQ 12/14/16 21:00 01/12/17 20:59 12/17/16 10:39 Lactulose (Cephulac) 10 gm THREE TIMES A DAY ORAL 12/16/16 18:00 01/15/17 17:59 12/17/16 13:36 Levetiracetam (Keppra) 500 mg Q12HR ORAL 12/15/16 14:00 01/14/17 13:59 12/17/16 10:37 Lorazepam (Ativan 2mg/ml 1ml) 0.5 mg Q4H PRN IV For Anxiety 12/14/16 17:00 12/20/16 16:59 12/17/16 08:31 Morphine Sulfate (Morphine Sulfate) 1 mg Q4H PRN IVP PAIN 4-10 12/14/16 18:00 12/20/16 17:59 Olanzapine (ZyPREXA) 5 mg BEDTIME ORAL 12/15/16 21:00 01/14/17 20:59 12/16/16 21:47 Ondansetron HCl (Zofran) 4 mg Q6H PRN IVP Nausea & Vomiting 12/14/16 17:00 01/13/17 16:59 Rifaximin (Xifaxan) 550 mg EVERY 12 HOURS ORAL 12/16/16 21:00 12/23/16 20:59 12/17/16 10:37 Tamsulosin HCl (Flomax) 0.4 mg BEDTIME ORAL 12/14/16 21:00 01/12/17 20:59 12/16/16 21:47 aKvin Rolon M.D. Dec 17, 2016 15:27
[2016-12-17 16:00] VITALS: BP 104/71
[2016-12-17] MEDS ORDERED: D5 1/2NS 1000ml IV ONE (18:22)
[2016-12-17 20:00] VITALS: BP 102/67
[2016-12-17] MEDS: Tamsulosin 0.4mg cap ORAL SCH (20:11)
[2016-12-18] VITALS: BP 139/63
[2016-12-18] MEDS: D5W w/KCl 20mEq 1,000 ML IV SCH (02:57)
[2016-12-18 04:00] VITALS: BP 97/62
[2016-12-18] MEDS: LORazepam Inj 2mg/ml 1ml IV PRN (04:08)
[2016-12-18 08:00] VITALS: BP 119/73
[2016-12-18] MEDS: Lactulose 10gm/15ml UDC ORAL SCH ×3 (08:50→17:58)
[2016-12-18] MEDS: Heparin 5000 units/ml inj SUBQ SCH ×2 (08:52→20:44)
--- NOTE | 2016-12-18 10:02 | General Progress Note ---
Assessment/Plan Problem List: (1) Elevated liver enzymes ICD Codes: R74.8 - Abnormal levels of other serum enzymes SNOMED: 252933004, 812933119 (2) HCV infection ICD Codes: B19.20 - Unspecified viral hepatitis C without hepatic coma SNOMED: 52188240 (3) chronic seizure disorder (4) Hepatic encephalopathy ICD Codes: K72.90 - Hepatic failure, unspecified without coma SNOMED: 18927576 Assessment/Plan lactulose and Xifaxan check ceruloplasmin fu abd us plan EGD on Monday for EV evaluation dc ppi Subjective ROS Limited/Unobtainable: Yes Allergies: Coded Allergies: VANCOMYCIN (Verified Allergy, Unknown, 12/13/16) Subjective no event Objective Last 24 Hour Vital Signs Date Time Temp Pulse Resp B/P (MAP) Pulse Ox O2 Delivery O2 Flow Rate FiO2 12/18/16 08:00 97.3 83 19 119/73 97 Room Air 12/18/16 04:00 97.7 91 19 97/62 95 Room Air 12/18/16 00:00 97.7 102 20 139/63 98 Room Air 12/17/16 20:00 97.5 58 19 102/67 95 Room Air 12/17/16 16:00 98.1 89 20 104/71 95 Room Air 12/17/16 12:00 98.1 90 20 103/64 95 Room Air Height (Feet): 5 Height (Inches): 7.00 Weight (Pounds): 212 General Appearance: alert EENT: normal ENT inspection Neck: supple Cardiovascular: normal rate Respiratory/Chest: decreased breath sounds Abdomen: normal bowel sounds, non tender, soft Extremities: normal range of motion LINDA LAZO Dec 18, 2016 10:02
--- NOTE | 2016-12-18 10:19 | General Progress Note ---
Assessment/Plan Problem List: (1) Sepsis ICD Codes: A41.9 - Sepsis, unspecified organism SNOMED: 53538882 (2) UTI (urinary tract infection) ICD Codes: N39.0 - Urinary tract infection, site not specified SNOMED: 37535337 (3) Elevated liver enzymes ICD Codes: R74.8 - Abnormal levels of other serum enzymes SNOMED: 103807004, 536096938 (4) Dementia ICD Codes: F03.90 - Unspecified dementia without behavioral disturbance SNOMED: 60982977 (5) Parkinson disease ICD Codes: G20 - Parkinson's disease SNOMED: 45976184 (6) Epilepsia ICD Codes: G40.909 - Epilepsy, unspecified, not intractable, without status epilepticus SNOMED: 20453404 Status: stable, progressing, tolerating diet Assessment/Plan ot pt diet abx cbc bmp am promsie ltach eval Subjective Constitutional: Reports: weakness Allergies: Coded Allergies: VANCOMYCIN (Verified Allergy, Unknown, 12/13/16) All Systems: reviewed and negative except above Subjective confused in bed Objective Last 24 Hour Vital Signs Date Time Temp Pulse Resp B/P (MAP) Pulse Ox O2 Delivery O2 Flow Rate FiO2 12/18/16 08:00 97.3 83 19 119/73 97 Room Air 12/18/16 04:00 97.7 91 19 97/62 95 Room Air 12/18/16 00:00 97.7 102 20 139/63 98 Room Air 12/17/16 20:00 97.5 58 19 102/67 95 Room Air 12/17/16 16:00 98.1 89 20 104/71 95 Room Air 12/17/16 12:00 98.1 90 20 103/64 95 Room Air Height (Feet): 5 Height (Inches): 7.00 Weight (Pounds): 212 General Appearance: lethargic EENT: normal ENT inspection Neck: normal alignment Cardiovascular: normal peripheral pulses, normal rate, regular rhythm Respiratory/Chest: chest wall non-tender, lungs clear, normal breath sounds Abdomen: normal bowel sounds, non tender, soft Extremities: normal inspection Edema: no edema noted Arm (L), no edema noted Arm (R), no edema noted Leg (L), no edema noted Leg (R), no edema noted Pedal (L), no edema noted Pedal (R), no edema noted Generalized Neurologic: motor weakness Skin: normal pigmentation, warm/dry RADHA GARCIA Dec 18, 2016 10:19
[2016-12-18 12:00] VITALS: BP 133/79
--- NOTE | 2016-12-18 14:12 | Pulmonology Progress Note ---
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 possible sepsis possible UTI elevated LFT ( likely due to Depakote vs hep C infection0 seizure disorder Hepatitis C infection electrolyte imbalance schizophrenia BPH PLAN OF CARE MS floor gentle IV hydration urine tox screen negative UA with possible UTI urine cx preliminary negative abx ID follows swallow eval done, diet as per ST recommendation with strict aspiration /reflux precautions neuro and psych follows hep panel + hep C per ID will check genotype and viral load for outpatient Rx monitor LFT, trending down CXR no acute findings pain management bowel regimen PT/OT monitor lytes, replace as needed nephro follows IVF changed to dextrose with K supplements continue Proscar and Flomax DVT prophylaxis psych follows, psych medication were reviewed and resumed dc IVF dc plan per PMD stable for dc from pulmonary standpoint case discussed and evaluated by supervising physician Subjective Allergies: Coded Allergies: VANCOMYCIN (Verified Allergy, Unknown, 12/13/16) Subjective no signs of respiratory distress denies discomfort no seizure activity Objective Last 24 Hour Vital Signs Date Time Temp Pulse Resp B/P (MAP) Pulse Ox O2 Delivery O2 Flow Rate FiO2 12/18/16 12:00 97.6 98 19 133/79 98 Room Air 12/18/16 08:00 97.3 83 19 119/73 97 Room Air 12/18/16 04:00 97.7 91 19 97/62 95 Room Air 12/18/16 00:00 97.7 102 20 139/63 98 Room Air 12/17/16 20:00 97.5 58 19 102/67 95 Room Air 12/17/16 16:00 98.1 89 20 104/71 95 Room Air Objective General Appearance: other - awake, alert, obese male in NAD HEENT: normocephalic, atraumatic Respiratory/Chest: lungs clear, no respiratory distress, no accessory muscle use Cardiovascular: normal rate, regular rhythm, no JVD Abdomen: normal bowel sounds, soft, non tender - obese Extremities: no edema Neurologic/Psychiatric: alert, speech garbled, incomprehensible Musculoskeletal: normal muscle bulk Current Medications Medications (Trade) Dose Ordered Sig/Abhishek Route PRN Reason Start Time Stop Time Status Last Admin Dose Admin Dextrose (Dextrose 50%) STAT PRN IV Hypoglycemia 12/15/16 15:00 01/12/17 14:59 Dextrose/ Electrolytes 1,000 ml @ 50 mls/hr Q20H IV 12/14/16 19:00 01/13/17 18:59 12/18/16 02:57 Finasteride (Proscar) 5 mg DAILY ORAL 12/15/16 09:00 01/13/17 08:59 12/18/16 08:50 Gabapentin (Neurontin) 300 mg THREE TIMES A DAY ORAL 12/14/16 18:00 01/12/17 19:59 12/18/16 12:47 Heparin Sodium (Porcine) (Heparin 5000 units/ml) 5,000 units EVERY 12 HOURS SUBQ 12/14/16 21:00 01/12/17 20:59 12/18/16 08:52 Lactulose (Cephulac) 10 gm THREE TIMES A DAY ORAL 12/16/16 18:00 01/15/17 17:59 12/18/16 12:47 Levetiracetam (Keppra) 500 mg Q12HR ORAL 12/15/16 14:00 01/14/17 13:59 12/18/16 08:50 Lorazepam (Ativan 2mg/ml 1ml) 0.5 mg Q4H PRN IV For Anxiety 12/14/16 17:00 12/20/16 16:59 12/18/16 04:08 Morphine Sulfate (Morphine Sulfate) 1 mg Q4H PRN IVP PAIN 4-10 12/14/16 18:00 12/20/16 17:59 Olanzapine (ZyPREXA) 5 mg BEDTIME ORAL 12/15/16 21:00 01/14/17 20:59 12/17/16 20:11 Ondansetron HCl (Zofran) 4 mg Q6H PRN IVP Nausea & Vomiting 12/14/16 17:00 01/13/17 16:59 Rifaximin (Xifaxan) 550 mg EVERY 12 HOURS ORAL 12/16/16 21:00 12/23/16 20:59 12/18/16 08:50 Tamsulosin HCl (Flomax) 0.4 mg BEDTIME ORAL 12/14/16 21:00 01/12/17 20:59 12/17/16 20:11 [facility]new [facility] center[facility] Morales NP Dec 18, 2016 14:12
[2016-12-18] MEDS ORDERED: KCl 10% 20 mEq/15ml liquid NG ONE (14:15)
--- NOTE | 2016-12-18 14:56 | General Progress Note ---
Assessment/Plan Status: progressing Assessment/Plan encephalopathy due to [facility] -zyprexa 10mg qhs -change ativan to po -increase Neurontin Subjective Neurologic/Psychiatric: Reports: anxiety, emotional problems Allergies: Coded Allergies: VANCOMYCIN (Verified Allergy, Unknown, 12/13/16) Subjective the pt is agitated and attempting to come out of bed. he is more alert and oriented Objective Last 24 Hour Vital Signs Date Time Temp Pulse Resp B/P (MAP) Pulse Ox O2 Delivery O2 Flow Rate FiO2 12/18/16 12:00 97.6 98 19 133/79 98 Room Air 12/18/16 08:00 97.3 83 19 119/73 97 Room Air 12/18/16 04:00 97.7 91 19 97/62 95 Room Air 12/18/16 00:00 97.7 102 20 139/63 98 Room Air 12/17/16 20:00 97.5 58 19 102/67 95 Room Air 12/17/16 16:00 98.1 89 20 104/71 95 Room Air Height (Feet): 5 Height (Inches): 7.00 Weight (Pounds): 212 General Appearance: no apparent distress, alert, overweight Neurologic: alert, responsive, depressed affect Cindy Lechuga M.D. Dec 18, 2016 14:56
[2016-12-18 16:00] VITALS: BP 117/89
[2016-12-18] MEDS: LORazepam 1mg tab ORAL PRN (16:40)
[2016-12-18] MEDS ORDERED: DiphenhydrAMINE 50mg/ml Inj IM ONE (17:15)
[2016-12-18] MEDS ORDERED: Haloperidol 5mg/ml Inj IM ONE (17:15)
--- NOTE | 2016-12-18 19:06 | Infectious Diseases Prog Note ---
Assessment/Plan Problems: (1) Sepsis Assessment & Plan: blood culture at [facility] grew coag negative staph but from one bottle only , most likely contaminant , blood culture results here are negative , off antibiotics since all cultures are negative, monitor off antibiotics (2) UTI (urinary tract infection) Assessment & Plan: with negative urine culture, will stop cefepime (3) Elevated liver enzymes Assessment & Plan: due to chronic HCV infection, will order viral load and genotype, recommend treatment with GI as an out patient (4) HCV infection Assessment & Plan: will check his genotype and viral load, recommend treatment as an out patient Subjective ROS Limited/Unobtainable: Yes Allergies: Coded Allergies: VANCOMYCIN (Verified Allergy, Unknown, 12/13/16) Subjective he is up in bed, alert, comfortable, not in distress, confused, with slow response, afebrile Objective Vital Signs Last 24 Hour Vital Signs Date Time Temp Pulse Resp B/P (MAP) Pulse Ox O2 Delivery O2 Flow Rate FiO2 12/18/16 16:00 97.3 90 18 117/89 95 Room Air 12/18/16 12:00 97.6 98 19 133/79 98 Room Air 12/18/16 08:00 97.3 83 19 119/73 97 Room Air 12/18/16 04:00 97.7 91 19 97/62 95 Room Air 12/18/16 00:00 97.7 102 20 139/63 98 Room Air 12/17/16 20:00 97.5 58 19 102/67 95 Room Air Height (Feet): 5 Height (Inches): 7.00 Weight (Pounds): 212 General Appearance: WD/WN, no acute distress HEENT: normocephalic, atraumatic, anicteric, mucous membranes moist, PERRL Respiratory/Chest: chest wall non-tender, lungs clear, normal breath sounds, no respiratory distress, no accessory muscle use Cardiovascular: normal peripheral pulses, normal rate, regular rhythm, no gallop/murmur Abdomen: normal bowel sounds, soft, non tender, no organomegaly, non distended , no mass, no scars Extremities: no cyanosis, no clubbing Skin: no rash, no lesions, no ulcers Neurologic/Psychiatric: alert, responsive, disoriented, other - confused Lymphatic: no neck adenopathy Current Medications Medications (Trade) Dose Ordered Sig/Abhishek Route PRN Reason Start Time Stop Time Status Last Admin Dose Admin Dextrose (Dextrose 50%) STAT PRN IV Hypoglycemia 12/15/16 15:00 01/12/17 14:59 Finasteride (Proscar) 5 mg DAILY ORAL 12/15/16 09:00 01/13/17 08:59 12/18/16 08:50 Gabapentin (Neurontin) 600 mg THREE TIMES A DAY ORAL 12/18/16 18:00 01/17/17 17:59 12/18/16 17:58 Heparin Sodium (Porcine) (Heparin 5000 units/ml) 5,000 units EVERY 12 HOURS SUBQ 12/14/16 21:00 01/12/17 20:59 12/18/16 08:52 Lactulose (Cephulac) 10 gm THREE TIMES A DAY ORAL 12/16/16 18:00 01/15/17 17:59 12/18/16 17:58 Levetiracetam (Keppra) 500 mg Q12HR ORAL 12/15/16 14:00 01/14/17 13:59 12/18/16 08:50 Lorazepam (Ativan) 2 mg Q6H PRN ORAL For Anxiety 12/18/16 15:00 12/25/16 14:59 12/18/16 16:40 Morphine Sulfate (Morphine Sulfate) 1 mg Q4H PRN IVP PAIN 4-10 12/14/16 18:00 12/20/16 17:59 Olanzapine (ZyPREXA) 10 mg BEDTIME ORAL 12/18/16 21:00 01/17/17 20:59 Ondansetron HCl (Zofran) 4 mg Q6H PRN IVP Nausea & Vomiting 12/14/16 17:00 01/13/17 16:59 Rifaximin (Xifaxan) 550 mg EVERY 12 HOURS ORAL 12/16/16 21:00 12/23/16 20:59 12/18/16 08:50 Tamsulosin HCl (Flomax) 0.4 mg BEDTIME ORAL 12/14/16 21:00 01/12/17 20:59 12/17/16 20:11 Kavin Rolon M.D. Dec 18, 2016 19:06
[2016-12-18 20:00] VITALS: BP 102/49
[2016-12-18] MEDS: Tamsulosin 0.4mg cap ORAL SCH (20:43)
--- NOTE | 2016-12-18 22:22 | General Progress Note ---
Assessment/Plan Assessment/Plan Assessment and Recs: # Thrombocytopenia 2/2 hepatitis C and splenomegaly # Anemia of chronic disease - mild, continue to monitor # 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 # possible sepsis # possible UTI # elevated LFT ( likely due to Depakote vs hep C infection0 # Hepatitis C infection # schizophrenia # BPH Subjective Constitutional: Reports: no symptoms HEENT: Reports: no symptoms Cardiovascular: Reports: no symptoms Respiratory: Reports: no symptoms Gastrointestinal/Abdominal: Reports: no symptoms Neurologic/Psychiatric: Reports: no symptoms Endocrine: Reports: no symptoms Hematologic/Lymphatic: Reports: anemia Allergies: Coded Allergies: VANCOMYCIN (Verified Allergy, Unknown, 12/13/16) Subjective sleepy this am Objective Last 24 Hour Vital Signs Date Time Temp Pulse Resp B/P (MAP) Pulse Ox O2 Delivery O2 Flow Rate FiO2 12/18/16 20:00 96.1 77 19 102/49 98 Room Air 12/18/16 16:00 97.3 90 18 117/89 95 Room Air 12/18/16 12:00 97.6 98 19 133/79 98 Room Air 12/18/16 08:00 97.3 83 19 119/73 97 Room Air 12/18/16 04:00 97.7 91 19 97/62 95 Room Air 12/18/16 00:00 97.7 102 20 139/63 98 Room Air Intake and Output 12/18/16 12/19/16 19:00 07:00 Intake Total 120 ml Balance 120 ml Intake Oral 120 ml # Voids 1 # Bowel Movements 2 1 Height (Feet): 5 Height (Inches): 7.00 Weight (Pounds): 212 General Appearance: alert EENT: TMs normal Neck: supple Cardiovascular: regular rhythm Respiratory/Chest: no respiratory distress Abdomen: soft Extremities: non-tender Edema: 1+ Leg (L), 1+ Leg (R) Neurologic: alert Skin: warm/dry Jony Smith Dec 18, 2016 22:22
[2016-12-18] MEDS: Nystatin Powder 100,000 units/gm 15gm TOPIC SCH (22:31)
[2016-12-19] VITALS (13 sets, daily range): BP systolic 84–128; BP diastolic 49–83
[2016-12-19 07:35] LABS: EOSINOPHILS % (AUTO) 1.7 % (0.0-3.0); LYMPHOCYTES % (AUTO) 34.6 % (20.0-45.0); MEAN CORPUSCULAR HEMOGLOBIN 32.2 PG (27.0-31.0); MEAN CORPUSCULAR HGB CONC 34.8 G/DL (32.0-36.0); MEAN CORPUSCULAR VOLUME 93 FL (80-99); MEAN PLATELET VOLUME 7.5 FL (6.5-10.1); MONOCYTES % (AUTO) 9.2 % (1.0-10.0); NEUTROPHILS % (AUTO) 53.6 % (45.0-75.0); PLATELET COUNT 190 K/UL (150-450); RED BLOOD COUNT 4.32 M/UL (4.70-6.10); RED CELL DISTRIBUTION WIDTH 16.1 % (11.6-14.8); WHITE BLOOD COUNT 9.8 K/UL (4.8-10.8)
[2016-12-19 07:57] LABS: ANION GAP 8 (5-15); CARBON DIOXIDE 25 MMOL/L (21-32); CHLORIDE 116 MMOL/L (98-107); CREATININE 0.5 MG/DL (0.55-1.30); GLOMERULAR FILTRATION RATE > 60 mL/min (>60); POTASSIUM 4.2 MMOL/L (3.5-5.1); SODIUM 149 MMOL/L (136-145)
--- NOTE | 2016-12-19 08:16 | Consultation ---
DATE OF CONSULTATION: 12/15/2016 NEUROLOGICAL CONSULTATION CONSULTING PHYSICIAN: Willem Whalen M.D. ATTENDING PHYSICIAN: Claudio Soria D.O. REQUESTING PHYSICIAN: Claudio Soria D.O. HISTORY OF PRESENT ILLNESS: This is a 46-year-old man seen in neurological consultation to evaluate underlying dementia and seizure activities apparently following severe traumatic brain injury several years ago. The patient is a resident of a nursing facility. He was initially taken on 12/12/2016 to a [facility] Emergency Room. There was evidence of severe sepsis with acute organ dysfunction, elevated transaminase, leukocytosis, lactic acidosis, fevers, and elevated troponin. According to the medical records, his baseline being able to ambulate with assistance using wheelchair but usually oriented x1. With this, the patient developed fevers, poor appetite, temperature 103.5, acute tachycardia of 120, low blood pressure, lactate was 2.5, creatinine 1.5, elevated liver enzymes, and low calcium of 6.5. With this, the patient was brought to the [facility], stat CT of the brain was obtained revealing a ventriculomegaly, hypodensities in periventricular white matter particularly in the left frontal lobe and right parietal lobe, encephalomalacia in the right frontal lobe and the right temporoparietooccipital lobe with associated ex vacuo dilatation of the anterior and posterior horns of right lateral ventricle. The patient was started on Rocephin and IV fluids, and transported to this facility for further assessment and treatment. He has preexistent medical problems which include history of schizophrenia, bipolar, depression with dementia following severe traumatic brain injury with seizure activities. He had history of hepatitis C and benign prostatic hypertrophy. CURRENT MEDICATIONS: His treatment prior to admission included Tylenol but also amantadine, Abilify 15 mg daily, Benadryl, Proscar, Neurontin 300 mg t.i.d., lorazepam 0.5 q.6 h. p.r.n., Zyprexa 20 mg b.i.d., tamsulosin, trazodone, and Depakote 250 mg t.i.d. LABORATORY AND DIAGNOSTIC DATA: Following current admission, laboratory work was repeated and this revealed anemia with hemoglobin 11.8 and hematocrit 36.9. His toxicology panel was negative. Serology panel with hepatitis C antibody was negative. His chemistry panel with sodium 138, potassium 3.3, calcium 7.2, elevated AST 476, and ALT 222. His chest x-ray, left basilar atelectasis. The patient continued to be on IV fluids and 1 maintained his treatment. SOCIAL HISTORY: Resident of nursing facility, there is no evidence of previous alcohol or drug abuse. FAMILY HISTORY: Unavailable. REVIEW OF SYMPTOMS: Unable to obtain due to the patient's status. PHYSICAL EXAMINATION: GENERAL: A well-developed, moderately obese man, not in acute distress, found to be drowsy. A sitter is at the bedside. VITAL SIGNS: Vital signs now stable. Blood pressure 104/53 and temperature 96.4. HEENT: Head normocephalic. Eyes, ears, and throat are clear. No otorrhea and no rhinorrhea noted. NECK: Rigid in all directions. MUSCULOSKELETAL: There are no deformities. Peripheral pulses 1+ and symmetric. MENTAL STATUS: The patient is arousable. He has very brief eye contact, able to respond only to a few simple commands, and remaining predominantly nonverbal. CRANIAL NERVE III: Responding to light and accommodation. Extraocular movement limitation in lateral gazes. Unable to test visual roth or funduscopic examination due to noncompliance. CRANIAL NERVE V: Normal corneal responses. CRANIAL NERVE VII: No facial asymmetry. CRANIAL NERVE VIII: Slight decrease in hearing. CRANIAL NERVES IX THROUGH XII: Tongue is in midline. MOTOR EXAMINATION: Diffuse rigidity in all extremities but able to lift arms against the gravity and able to lift left leg and left ankle against the gravity. Not cooperative with the right leg. DEEP TENDON REFLEXES: Deep tendon reflexes depressed bilaterally. Plantar response is mute. SENSORY EXAMINATION: Withdrawing to pin stimulation in all limbs. Gait not tested but reported able to ambulate with assistance. IMPRESSION: 1. Status post severe traumatic brain injury with extensive diffuse encephalomalacia presenting with significant dementia and chronic seizure disorder, abnormal gait. 2. Sepsis. 3. Abnormal liver enzymes. Rule out drug-induced (Depakote). 4. History of chronic psychiatric disorder. 5. Benign prostatic hypertrophy. 6. Hypocalcemia. RECOMMENDATION: In presence of hepatitis C and abnormal liver enzymes, use of Depakote may represent an additional risk. For this reason, we will recommend to change Depakote for anticonvulsants such as Keppra starting 500 mg b.i.d. Currently the patient appears to be obtunded, most likely combined underlying infection and metabolic derangement. The patient to be observed for any paroxysmal events. Hold sedation and antipsychotic agents, which could be further adjusted as necessary. Thank you for allowing me to see this interesting patient in neurological consultation. Willem Whalen M.D. DR: Roseanne JOB#: [id number] CC:
--- NOTE | 2016-12-19 08:32 | Consultation ---
DATE OF CONSULTATION: 12/17/2016 HEMATOLOGY/ONCOLOGY CONSULTATION REASON FOR CONSULTATION: Evaluation of hepatitis C, coagulopathy, thrombocytopenia . IDENTIFICATION DATA: Dear Dr. Claudio Soria: The patient is a pleasant 46-year-old male with past medical history significant for Parkinson disease, schizophrenia, and dementia, jail resident, initially presented to [facility] for fever, diagnosed to have sepsis and UTI. He is started on antibiotics at [place] and subsequently transferred to [facility] for evaluation and workup and Infectious Disease service consulted by PCP for antibiotics and care. The patient is alert and oriented, nonverbal due to dementia, schizophrenia, noted to have thrombocytopenia. Therefore, Hematology service consulted. PAST MEDICAL HISTORY: Parkinson disease, schizophrenia, bipolar disorder, dementia, and epilepsy. PAST SURGICAL HISTORY: None known. MEDICATIONS: Include . SOCIAL HISTORY: custodial resident. No recent tobacco, alcohol, or illicit drug use. FAMILY HISTORY: Difficult to obtain. REVIEW OF SYSTEMS: Difficult to obtain due to dementia and schizophrenia. PHYSICAL EXAMINATION: VITAL SIGNS: Reviewed. GENERAL: No acute distress. PULMONARY: Decreased breath sounds. . CARDIOVASCULAR: Regular rate. No S3 or S4. ABDOMEN: Soft. EXTREMITIES: A 1+ edema. LABORATORY DATA: WBC of 5.8, hemoglobin of 13.6, hematocrit 40, platelet count 177,000. BUN of 6 and creatinine 0.5. Serology reviewed. Hepatitis C positive. ASSESSMENT AND RECOMMENDATIONS: 1. Thrombocytopenia secondary to underlying hepatitis C and splenomegaly. 2. Anemia secondary to chronic disease. 3. as an outpatient. 4. Seizure disorder. 5. Elevated liver function tests. 6. Urinary tract infection history. 7. Schizophrenia. 8. Benign prostatic hypertrophy. I appreciate the consultation. Jony Smith M.D. DR: Rachel JOB#: [id number] CC:
[2016-12-19] MEDS: Lactulose 10gm/15ml UDC ORAL SCH ×3 (09:12→17:58)
[2016-12-19] MEDS: Nystatin Powder 100,000 units/gm 15gm TOPIC SCH ×3 (09:12→17:58)
--- NOTE | 2016-12-19 09:40 | Diagnostic Imaging Report ---
Indication: Abnormal liver function tests Technique: Mahoney-scale and duplex images of the upper abdomen were obtained Comparison: Findings: Gallbladder demonstrates sludge. No stones, wall thickening, nor pericholecystic fluid. Sonographic Green's sign is negative. Common bile duct measures 6 mm in diameter. No intrahepatic biliary ductal dilatation. Liver demonstrates normal echogenicity, no focal abnormality. It is somewhat enlarged Portal vein and hepatic veins are patent. Pancreas is unremarkable. Spleen is unremarkable. Left kidney measures 13 cm in length. Right kidney measures 11.2 cm length. Both kidneys demonstrate normal echogenicity. There is no hydronephrosis. No focal abnormality . Non-aneurysmal abdominal aorta . Impression: Gallbladder sludge. Negative for gallstones or dilated ducts Mild hepatomegaly
[2016-12-19] MEDS: Heparin 5000 units/ml inj SUBQ SCH ×2 (10:01→20:24)
--- NOTE | 2016-12-19 10:06 | General Progress Note ---
Assessment/Plan Problem List: (1) Elevated liver enzymes ICD Codes: R74.8 - Abnormal levels of other serum enzymes SNOMED: 531415393, 544480872 (2) HCV infection ICD Codes: B19.20 - Unspecified viral hepatitis C without hepatic coma SNOMED: 86890023 (3) chronic seizure disorder (4) Hepatic encephalopathy ICD Codes: K72.90 - Hepatic failure, unspecified without coma SNOMED: 08792769 Assessment/Plan lactulose and Xifaxan check ceruloplasmin fu abd us plan EGD for today for EV evaluation dc ppi Subjective ROS Limited/Unobtainable: Yes Allergies: Coded Allergies: VANCOMYCIN (Verified Allergy, Unknown, 12/13/16) Subjective no event Objective Last 24 Hour Vital Signs Date Time Temp Pulse Resp B/P (MAP) Pulse Ox O2 Delivery O2 Flow Rate FiO2 12/19/16 08:16 97.9 56 19 94/57 97 Room Air 12/19/16 04:00 97.2 57 19 112/49 98 Room Air 12/19/16 00:00 96.1 74 19 112/56 98 Room Air 12/18/16 20:00 96.1 77 19 102/49 98 Room Air 12/18/16 16:00 97.3 90 18 117/89 95 Room Air 12/18/16 12:00 97.6 98 19 133/79 98 Room Air Laboratory Tests 12/19/16 04:40: White Blood Count 9.8, Red Blood Count 4.32L, Hemoglobin 13.9L, Hematocrit 39.9L , Mean Corpuscular Volume 93, Mean Corpuscular Hemoglobin 32.2H, Mean Corpuscular Hemoglobin Concent 34.8, Red Cell Distribution Width 16.1H, Platelet Count 190, Mean Platelet Volume 7.5, Neutrophils (%) (Auto) 53.6, Lymphocytes (%) (Auto) 34.6, Monocytes (%) (Auto) 9.2, Eosinophils (%) (Auto) 1.7, Basophils (%) (Auto) 1.0, Sodium Level 149H, Potassium Level 4.2, Chloride Level 116H, Carbon Dioxide Level 25, Anion Gap 8, Blood Urea Nitrogen 7, Creatinine 0.5L, Estimat Glomerular Filtration Rate > 60, Glucose Level 81, Calcium Level 9.0 Height (Feet): 5 Height (Inches): 5.00 Weight (Pounds): 211 General Appearance: no apparent distress EENT: normal ENT inspection Neck: supple Cardiovascular: normal rate Respiratory/Chest: decreased breath sounds Abdomen: normal bowel sounds, non tender, soft Extremities: non-tender LINDA LAZO Dec 19, 2016 10:06
--- NOTE | 2016-12-19 11:22 | Anethesia Preoperative Eval ---
Anesthesia Pre-op PMH/ROS General Date of Evaluation: Dec 19, 2016 Time of Evaluation: 11:19 Anesthesiologist: Jamie ASA Score: ASA 4 Mallampati Score Class I : Soft palate, uvula, fauces, pillars visible Class II: Soft palate, uvula, fauces visible Class III: Soft palate, base of uvula visible Class IV: Only hard plate visible Mallampati Classification: Class III Surgeon: Nasim Diagnosis: Abdominal pain Surgical Procedure: EGD Anesthesia History: none Family History: no anesthesia problems Allergies: Coded Allergies: VANCOMYCIN (Verified Allergy, Unknown, 12/13/16) Medications: see eMAR Past Medical History Cardiovascular: Reports: HTN, Denies: CAD, AL, valve dz, arrhythmia, other Pulmonary: Denies: asthma, COPD, TAVARES, other Gastrointestinal/Genitourinary: Reports: GERD, Denies: CRI, ESRD, other Neurologic/Psychiatric: Reports: dementia, other - Posttraumatic encephalopathy seizers, Denies: CVA, depression/anxiety, TIA Endocrine: Denies: DM, hypothyroidism, steroids, other HEENT: Denies: cataract (L), cataract (R), glaucoma, [place] (L), [place] (R), other Hematology/Immune: Denies: anemia, DVT, bleeding disorder, other Musculoskeletal/Integumentary: Reports: other - contracted, Denies: OA, RA, DJD, DDD, edema Other: other - overweight PMH Narrative: as above PSxH Narrative: see H&P Anesthesia Pre-op Phys. Exam Physician Exam Last Vital Signs Date Time Temp Pulse Resp B/P (MAP) Pulse Ox O2 Delivery O2 Flow Rate FiO2 12/19/16 08:16 97.9 56 19 94/57 97 Room Air Constitutional: NAD Neurologic: other - unable to obtaine Cardiovascular: RRR, no M/R/G Respiratory: CTA Gastrointestinal: other Airway Exam Mallampati Score: Class III MO: limited Neck: stiff ROM: limited Teeth: missing Dentures: no upper, no lower Anesthesia Pre-op A/P Labs Hematology Test 12/19/16 04:40 White Blood Count 9.8 K/UL (4.8-10.8) Red Blood Count 4.32 M/UL (4.70-6.10) L Hemoglobin 13.9 G/DL (14.2-18.0) L Hematocrit 39.9 % (42.0-52.0) L Mean Corpuscular Volume 93 FL (80-99) Mean Corpuscular Hemoglobin 32.2 PG (27.0-31.0) H Mean Corpuscular Hemoglobin Concent 34.8 G/DL (32.0-36.0) Red Cell Distribution Width 16.1 % (11.6-14.8) H Platelet Count 190 K/UL (150-450) Mean Platelet Volume 7.5 FL (6.5-10.1) Neutrophils (%) (Auto) 53.6 % (45.0-75.0) Lymphocytes (%) (Auto) 34.6 % (20.0-45.0) Monocytes (%) (Auto) 9.2 % (1.0-10.0) Eosinophils (%) (Auto) 1.7 % (0.0-3.0) Basophils (%) (Auto) 1.0 % (0.0-2.0) Chemistry Test 12/19/16 04:40 Sodium Level 149 MMOL/L (136-145) H Potassium Level 4.2 MMOL/L (3.5-5.1) Chloride Level 116 MMOL/L (98-107) H Carbon Dioxide Level 25 MMOL/L (21-32) Anion Gap 8 (5-15) Blood Urea Nitrogen 7 mg/dL (7-18) Creatinine 0.5 MG/DL (0.55-1.30) L Estimat Glomerular Filtration Rate > 60 mL/min (>60) Glucose Level 81 MG/DL (74-106) Calcium Level 9.0 MG/DL (8.5-10.1) Risk Assessment & Plan Assessment: ASA 4 Plan: MAC Status Change Before Surgery: No Pre-Antibiotics Drug: none SEJAL AYALA M.D. Dec 19, 2016 11:22
[2016-12-19] MEDS: Haloperidol 5mg/ml Inj IM PRN ×2 (11:23→20:17)
[2016-12-19] MEDS ORDERED: LR 1000ml ONE (11:44)
[2016-12-19] MEDS ORDERED: fentaNYL 100 mcg/2 mL IV ONE (11:44)
[2016-12-19] MEDS ORDERED: Propofol 200mg/20ml IV ONE (11:44)
--- NOTE | 2016-12-19 11:51 | General Progress Note ---
Assessment/Plan Problem List: (1) Sepsis ICD Codes: A41.9 - Sepsis, unspecified organism SNOMED: 67536530 (2) UTI (urinary tract infection) ICD Codes: N39.0 - Urinary tract infection, site not specified SNOMED: 71233344 (3) Elevated liver enzymes ICD Codes: R74.8 - Abnormal levels of other serum enzymes SNOMED: 366010642, 798011725 (4) Dementia ICD Codes: F03.90 - Unspecified dementia without behavioral disturbance SNOMED: 52600838 (5) Parkinson disease ICD Codes: G20 - Parkinson's disease SNOMED: 01770706 (6) Epilepsia ICD Codes: G40.909 - Epilepsy, unspecified, not intractable, without status epilepticus SNOMED: 53438207 Status: stable, progressing, tolerating diet Assessment/Plan ot pt diet abx cbc bmp am dc plan Subjective Constitutional: Reports: weakness Allergies: Coded Allergies: VANCOMYCIN (Verified Allergy, Unknown, 12/13/16) All Systems: reviewed and negative except above Subjective confused in bed Objective Last 24 Hour Vital Signs Date Time Temp Pulse Resp B/P (MAP) Pulse Ox O2 Delivery O2 Flow Rate FiO2 12/19/16 11:44 97.6 98 21 128/58 96 Room Air 12/19/16 08:16 97.9 56 19 94/57 97 Room Air 12/19/16 04:00 97.2 57 19 112/49 98 Room Air 12/19/16 00:00 96.1 74 19 112/56 98 Room Air 12/18/16 20:00 96.1 77 19 102/49 98 Room Air 12/18/16 16:00 97.3 90 18 117/89 95 Room Air 12/18/16 12:00 97.6 98 19 133/79 98 Room Air Laboratory Tests 12/19/16 04:40: White Blood Count 9.8, Red Blood Count 4.32L, Hemoglobin 13.9L, Hematocrit 39.9L , Mean Corpuscular Volume 93, Mean Corpuscular Hemoglobin 32.2H, Mean Corpuscular Hemoglobin Concent 34.8, Red Cell Distribution Width 16.1H, Platelet Count 190, Mean Platelet Volume 7.5, Neutrophils (%) (Auto) 53.6, Lymphocytes (%) (Auto) 34.6, Monocytes (%) (Auto) 9.2, Eosinophils (%) (Auto) 1.7, Basophils (%) (Auto) 1.0, Sodium Level 149H, Potassium Level 4.2, Chloride Level 116H, Carbon Dioxide Level 25, Anion Gap 8, Blood Urea Nitrogen 7, Creatinine 0.5L, Estimat Glomerular Filtration Rate > 60, Glucose Level 81, Calcium Level 9.0 Height (Feet): 5 Height (Inches): 5.00 Weight (Pounds): 211 General Appearance: lethargic EENT: normal ENT inspection Neck: normal alignment Cardiovascular: normal peripheral pulses, normal rate, regular rhythm Respiratory/Chest: chest wall non-tender, lungs clear, normal breath sounds Abdomen: normal bowel sounds, non tender, soft Extremities: normal inspection Edema: no edema noted Arm (L), no edema noted Arm (R), no edema noted Leg (L), no edema noted Leg (R), no edema noted Pedal (L), no edema noted Pedal (R), no edema noted Generalized Neurologic: motor weakness Skin: normal pigmentation, warm/dry RADHA GARCIA Dec 19, 2016 11:51
--- NOTE | 2016-12-19 12:01 | Endoscopy Procedure Note ---
Endoscopy Procedure Note Indication for Procedure: cirrhosis Procedures Performed: EGD Operative Findings/Diagnosis: gastritis Specimen: yes Pt Tolerated Procedure Well: Yes Estimated Blood Loss: none Anesthesiologist: rafaela Anesthesia: MAC Implant(s) used?: No 50 yrs or older w/o bx or poly: Not Applicable 10yrs. F/U not recommended: Not Applicable LINDA LAZO Dec 19, 2016 12:01
--- NOTE | 2016-12-19 12:01 | Pre-Procedure Note/Attestation ---
Pre-Procedure Note/Attestation Complete Prior to Procedure Planned Procedure: not applicable Procedure Narrative: egd Indications for Procedure Pre-Operative Diagnosis: cirrhosis Attestation I attest that I discussed the nature of the procedure; its benefits; risks and complications; and alternatives (and the risks and benefits of such alternatives ), prior to the procedure, with the patient (or the patient's legal risk control field representative). I attest that, if there was a reasonable possibility of needing a blood transfusion, the patient (or the patient's legal risk control field representative) was given the [facility] standardized written summary, pursuant to the [place] Blood Safety Act ([place] Health and Safety Code # 1645, as amended). I attest that I re-evaluated the patient just prior to the surgery and that there has been no change in the patient's H&P, except as documented below: LINDA LAZO Dec 19, 2016 12:01
--- NOTE | 2016-12-19 12:14 | Immediate Post-Op Evaluation ---
Immediate Post-Op Evalulation Immediate Post-Op Evalulation Procedure: EGD with Bx Date of Evaluation: Dec 19, 2016 Time of Evaluation: 12:13 IV Fluids: 800 Blood Products: none Estimated Blood Loss: none Urinary Output: none Blood Pressure Systolic: 104 Blood Pressure Diastolic: 56 Pulse Rate: 72 Respiratory Rate: 20 O2 Sat by Pulse Oximetry: 99 Temperature (Fahrenheit): 97.6 Pain Score (1-10): 1 Nausea: No Vomiting: No Complications none Patient Status: reacts, patent, none Hydration Status: adequate SEJAL AYALA M.D. Dec 19, 2016 12:13
--- NOTE | 2016-12-19 15:24 | Pulmonology Progress Note ---
Assessment/Plan Problems: (1) Sepsis (2) UTI (urinary tract infection) (3) Epilepsia (4) Parkinson disease (5) Dementia Assessment/Plan neuro consult NPO until mental status improves. continue abx check cultures dvt prophylaxis Subjective ROS Limited/Unobtainable: Yes Interval Events: somnolent Constitutional: Reports: no symptoms HEENT: Repors: no symptoms Respiratory: Reports: no symptoms Allergies: Coded Allergies: VANCOMYCIN (Verified Allergy, Unknown, 12/13/16) Objective Last 24 Hour Vital Signs Date Time Temp Pulse Resp B/P (MAP) Pulse Ox O2 Delivery O2 Flow Rate FiO2 12/19/16 12:55 97.6 75 15 98/64 96 Room Air 12/19/16 12:54 73 21 98/65 97 Room Air 12/19/16 12:45 77 16 96/66 96 Room Air 12/19/16 12:30 71 17 92/52 95 Room Air 12/19/16 12:20 75 15 91/55 98 Room Air 12/19/16 12:15 79 19 93/59 97 Room Air 12/19/16 12:13 72 20 99 12/19/16 12:11 97.3 76 20 108/56 98 Room Air 12/19/16 11:44 97.6 98 21 128/58 96 Room Air 12/19/16 08:16 97.9 56 19 94/57 97 Room Air 12/19/16 04:00 97.2 57 19 112/49 98 Room Air 12/19/16 00:00 96.1 74 19 112/56 98 Room Air 12/18/16 20:00 96.1 77 19 102/49 98 Room Air 12/18/16 16:00 97.3 90 18 117/89 95 Room Air General Appearance: WD/WN HEENT: normocephalic, atraumatic Respiratory/Chest: chest wall non-tender, lungs clear Cardiovascular: normal peripheral pulses, normal rate Abdomen: normal bowel sounds, soft, non tender Genitourinary: normal external genitalia Extremities: no cyanosis Skin: no rash Neurologic/Psychiatric: activity director II-XII grossly normal Lymphatic: no neck adenopathy, no groin adenopathy Musculoskeletal: normal muscle bulk Laboratory Tests 12/19/16 04:40: White Blood Count 9.8, Red Blood Count 4.32L, Hemoglobin 13.9L, Hematocrit 39.9L , Mean Corpuscular Volume 93, Mean Corpuscular Hemoglobin 32.2H, Mean Corpuscular Hemoglobin Concent 34.8, Red Cell Distribution Width 16.1H, Platelet Count 190, Mean Platelet Volume 7.5, Neutrophils (%) (Auto) 53.6, Lymphocytes (%) (Auto) 34.6, Monocytes (%) (Auto) 9.2, Eosinophils (%) (Auto) 1.7, Basophils (%) (Auto) 1.0, Sodium Level 149H, Potassium Level 4.2, Chloride Level 116H, Carbon Dioxide Level 25, Anion Gap 8, Blood Urea Nitrogen 7, Creatinine 0.5L, Estimat Glomerular Filtration Rate > 60, Glucose Level 81, Calcium Level 9.0 Current Medications Medications (Trade) Dose Ordered Sig/Abhishek Route PRN Reason Start Time Stop Time Status Last Admin Dose Admin Dextrose (Dextrose 50%) STAT PRN IV Hypoglycemia 12/15/16 15:00 01/12/17 14:59 Finasteride (Proscar) 5 mg DAILY ORAL 12/15/16 09:00 01/13/17 08:59 12/19/16 09:13 Gabapentin (Neurontin) 600 mg THREE TIMES A DAY ORAL 12/18/16 18:00 01/17/17 17:59 12/19/16 13:14 Haloperidol Lactate (Haldol) 5 mg Q6H PRN IM Agitation 12/19/16 11:00 01/18/17 10:59 12/19/16 11:23 Heparin Sodium (Porcine) (Heparin 5000 units/ml) 5,000 units EVERY 12 HOURS SUBQ 12/14/16 21:00 01/12/17 20:59 12/18/16 20:44 Lactulose (Cephulac) 10 gm THREE TIMES A DAY ORAL 12/16/16 18:00 01/15/17 17:59 12/19/16 13:14 Levetiracetam (Keppra) 500 mg Q12HR ORAL 12/15/16 14:00 01/14/17 13:59 12/19/16 09:13 Lorazepam (Ativan) 2 mg Q6H PRN ORAL For Anxiety 12/18/16 15:00 12/25/16 14:59 12/18/16 16:40 Morphine Sulfate (Morphine Sulfate) 1 mg Q4H PRN IVP PAIN 4-10 12/14/16 18:00 12/20/16 17:59 Nystatin (Nystop Powder) 1 applic THREE TIMES A DAY TOPIC 12/18/16 21:00 01/17/17 20:59 12/19/16 13:14 Olanzapine (ZyPREXA) 10 mg BEDTIME ORAL 12/18/16 21:00 01/17/17 20:59 12/18/16 20:43 Ondansetron HCl (Zofran) 4 mg Q6H PRN IVP Nausea & Vomiting 12/14/16 17:00 01/13/17 16:59 Rifaximin (Xifaxan) 550 mg EVERY 12 HOURS ORAL 12/16/16 21:00 12/23/16 20:59 12/19/16 09:12 Tamsulosin HCl (Flomax) 0.4 mg BEDTIME ORAL 12/14/16 21:00 01/12/17 20:59 12/18/16 20:43 ARIANA VELÁZQUEZ Dec 19, 2016 15:24
--- NOTE | 2016-12-19 19:27 | Nephrology Progress Note ---
Assessment/Plan Problem List: (1) Sepsis (2) Dementia (3) Parkinson disease (4) Epilepsia Plan Monitor lytes Monitor neuro status Monitor intake and output Monitor H&H, transfuse PRN Pain management prn PPI DVT prophylaxis AM labs Subjective ROS Limited/Unobtainable: Yes Subjective In bed, in no apparent distress Objective Objective Last 24 Hour Vital Signs Date Time Temp Pulse Resp B/P (MAP) Pulse Ox O2 Delivery O2 Flow Rate FiO2 12/19/16 16:06 97.7 61 21 97/56 98 Room Air 12/19/16 12:55 97.6 75 15 98/64 96 Room Air 12/19/16 12:54 73 21 98/65 97 Room Air 12/19/16 12:45 77 16 96/66 96 Room Air 12/19/16 12:30 71 17 92/52 95 Room Air 12/19/16 12:20 75 15 91/55 98 Room Air 12/19/16 12:15 79 19 93/59 97 Room Air 12/19/16 12:13 72 20 99 12/19/16 12:11 97.3 76 20 108/56 98 Room Air 12/19/16 11:44 97.6 98 21 128/58 96 Room Air 12/19/16 08:16 97.9 56 19 94/57 97 Room Air 12/19/16 04:00 97.2 57 19 112/49 98 Room Air 12/19/16 00:00 96.1 74 19 112/56 98 Room Air 12/18/16 20:00 96.1 77 19 102/49 98 Room Air Intake and Output 12/19/16 12/20/16 19:00 07:00 Intake Total 340 ml Output Total 400 ml Balance -60 ml Intake Oral 340 ml Output Urine Total 400 ml # Bowel Movements 1 Laboratory Tests 12/19/16 04:40: White Blood Count 9.8, Red Blood Count 4.32L, Hemoglobin 13.9L, Hematocrit 39.9L , Mean Corpuscular Volume 93, Mean Corpuscular Hemoglobin 32.2H, Mean Corpuscular Hemoglobin Concent 34.8, Red Cell Distribution Width 16.1H, Platelet Count 190, Mean Platelet Volume 7.5, Neutrophils (%) (Auto) 53.6, Lymphocytes (%) (Auto) 34.6, Monocytes (%) (Auto) 9.2, Eosinophils (%) (Auto) 1.7, Basophils (%) (Auto) 1.0, Sodium Level 149H, Potassium Level 4.2, Chloride Level 116H, Carbon Dioxide Level 25, Anion Gap 8, Blood Urea Nitrogen 7, Creatinine 0.5L, Estimat Glomerular Filtration Rate > 60, Glucose Level 81, Calcium Level 9.0 Height (Feet): 5 Height (Inches): 5.00 Weight (Pounds): 211 General Appearance: no apparent distress EENT: normal ENT inspection Neck: non-tender Cardiovascular: regular rhythm Respiratory/Chest: no respiratory distress Abdomen: non tender, soft Extremities: non-tender Neurologic: disoriented Yancy Roberts N.P. Dec 19, 2016 19:27
[2016-12-19] MEDS: Tamsulosin 0.4mg cap ORAL SCH (20:16)
--- NOTE | 2016-12-19 21:17 | Psych Consult Progress Note ---
Psych Consult Progress Note Consult 12/16/16 s/o pt cont to attempt and come out of the bed. agitated and confused aaoxself mood agitated affect flat tp disorganized a/p stable cont current meds Vital Signs Last 24 Hour Vital Signs Date Time Temp Pulse Resp B/P (MAP) Pulse Ox O2 Delivery O2 Flow Rate FiO2 12/19/16 16:06 97.7 61 21 97/56 98 Room Air 12/19/16 12:55 97.6 75 15 98/64 96 Room Air 12/19/16 12:54 73 21 98/65 97 Room Air 12/19/16 12:45 77 16 96/66 96 Room Air 12/19/16 12:30 71 17 92/52 95 Room Air 12/19/16 12:20 75 15 91/55 98 Room Air 12/19/16 12:15 79 19 93/59 97 Room Air 12/19/16 12:13 72 20 99 12/19/16 12:11 97.3 76 20 108/56 98 Room Air 12/19/16 11:44 97.6 98 21 128/58 96 Room Air 12/19/16 08:16 97.9 56 19 94/57 97 Room Air 12/19/16 04:00 97.2 57 19 112/49 98 Room Air 12/19/16 00:00 96.1 74 19 112/56 98 Room Air Labs Laboratory Tests Test 12/19/16 04:40 White Blood Count 9.8 K/UL (4.8-10.8) Red Blood Count 4.32 M/UL (4.70-6.10) L Hemoglobin 13.9 G/DL (14.2-18.0) L Hematocrit 39.9 % (42.0-52.0) L Mean Corpuscular Volume 93 FL (80-99) Mean Corpuscular Hemoglobin 32.2 PG (27.0-31.0) H Mean Corpuscular Hemoglobin Concent 34.8 G/DL (32.0-36.0) Red Cell Distribution Width 16.1 % (11.6-14.8) H Platelet Count 190 K/UL (150-450) Mean Platelet Volume 7.5 FL (6.5-10.1) Neutrophils (%) (Auto) 53.6 % (45.0-75.0) Lymphocytes (%) (Auto) 34.6 % (20.0-45.0) Monocytes (%) (Auto) 9.2 % (1.0-10.0) Eosinophils (%) (Auto) 1.7 % (0.0-3.0) Basophils (%) (Auto) 1.0 % (0.0-2.0) Sodium Level 149 MMOL/L (136-145) H Potassium Level 4.2 MMOL/L (3.5-5.1) Chloride Level 116 MMOL/L (98-107) H Carbon Dioxide Level 25 MMOL/L (21-32) Anion Gap 8 (5-15) Blood Urea Nitrogen 7 mg/dL (7-18) Creatinine 0.5 MG/DL (0.55-1.30) L Estimat Glomerular Filtration Rate > 60 mL/min (>60) Glucose Level 81 MG/DL (74-106) Calcium Level 9.0 MG/DL (8.5-10.1) Medications Current Medications Medications (Trade) Dose Ordered Sig/Abhishek Route PRN Reason Start Time Stop Time Status Last Admin Dose Admin Dextrose (Dextrose 50%) STAT PRN IV Hypoglycemia 12/15/16 15:00 01/12/17 14:59 Finasteride (Proscar) 5 mg DAILY ORAL 12/15/16 09:00 01/13/17 08:59 12/19/16 09:13 Gabapentin (Neurontin) 600 mg THREE TIMES A DAY ORAL 12/18/16 18:00 01/17/17 17:59 12/19/16 17:58 Haloperidol Lactate (Haldol) 5 mg Q6H PRN IM Agitation 12/19/16 11:00 01/18/17 10:59 12/19/16 20:17 Heparin Sodium (Porcine) (Heparin 5000 units/ml) 5,000 units EVERY 12 HOURS SUBQ 12/14/16 21:00 01/12/17 20:59 12/19/16 20:24 Lactulose (Cephulac) 10 gm THREE TIMES A DAY ORAL 12/16/16 18:00 01/15/17 17:59 12/19/16 17:58 Levetiracetam (Keppra) 500 mg Q12HR ORAL 12/15/16 14:00 01/14/17 13:59 12/19/16 20:15 Lorazepam (Ativan) 2 mg Q6H PRN ORAL For Anxiety 12/18/16 15:00 12/25/16 14:59 12/18/16 16:40 Morphine Sulfate (Morphine Sulfate) 1 mg Q4H PRN IVP PAIN 4-10 12/14/16 18:00 12/20/16 17:59 Nystatin (Nystop Powder) 1 applic THREE TIMES A DAY TOPIC 12/18/16 21:00 01/17/17 20:59 12/19/16 17:58 Olanzapine (ZyPREXA) 10 mg BEDTIME ORAL 12/18/16 21:00 01/17/17 20:59 12/19/16 20:16 Ondansetron HCl (Zofran) 4 mg Q6H PRN IVP Nausea & Vomiting 12/14/16 17:00 01/13/17 16:59 Rifaximin (Xifaxan) 550 mg EVERY 12 HOURS ORAL 12/16/16 21:00 12/23/16 20:59 12/19/16 20:16 Tamsulosin HCl (Flomax) 0.4 mg BEDTIME ORAL 12/14/16 21:00 01/12/17 20:59 12/19/16 20:16 Problems: Cindy Lechuga M.D. Dec 19, 2016 21:17
--- NOTE | 2016-12-19 21:19 | General Progress Note ---
Assessment/Plan Assessment/Plan encephalopathy due to [facility] schizophrenia by hx -zyprexa 10mg qhs -change ativan to po -increase Neurontin -im haldol as he was agitated today Subjective Date patient seen: Dec 19, 2016 Neurologic/Psychiatric: Reports: anxiety, depressed, emotional problems Allergies: Coded Allergies: VANCOMYCIN (Verified Allergy, Unknown, 12/13/16) Subjective the pt is agitated and attempting to come out of bed. he received and IM shot/ Objective Last 24 Hour Vital Signs Date Time Temp Pulse Resp B/P (MAP) Pulse Ox O2 Delivery O2 Flow Rate FiO2 12/19/16 16:06 97.7 61 21 97/56 98 Room Air 12/19/16 12:55 97.6 75 15 98/64 96 Room Air 12/19/16 12:54 73 21 98/65 97 Room Air 12/19/16 12:45 77 16 96/66 96 Room Air 12/19/16 12:30 71 17 92/52 95 Room Air 12/19/16 12:20 75 15 91/55 98 Room Air 12/19/16 12:15 79 19 93/59 97 Room Air 12/19/16 12:13 72 20 99 12/19/16 12:11 97.3 76 20 108/56 98 Room Air 12/19/16 11:44 97.6 98 21 128/58 96 Room Air 12/19/16 08:16 97.9 56 19 94/57 97 Room Air 12/19/16 04:00 97.2 57 19 112/49 98 Room Air 12/19/16 00:00 96.1 74 19 112/56 98 Room Air Intake and Output 12/19/16 12/20/16 19:00 07:00 Intake Total 340 ml Output Total 400 ml Balance -60 ml Intake Oral 340 ml Output Urine Total 400 ml # Bowel Movements 1 Laboratory Tests 12/19/16 04:40: White Blood Count 9.8, Red Blood Count 4.32L, Hemoglobin 13.9L, Hematocrit 39.9L , Mean Corpuscular Volume 93, Mean Corpuscular Hemoglobin 32.2H, Mean Corpuscular Hemoglobin Concent 34.8, Red Cell Distribution Width 16.1H, Platelet Count 190, Mean Platelet Volume 7.5, Neutrophils (%) (Auto) 53.6, Lymphocytes (%) (Auto) 34.6, Monocytes (%) (Auto) 9.2, Eosinophils (%) (Auto) 1.7, Basophils (%) (Auto) 1.0, Sodium Level 149H, Potassium Level 4.2, Chloride Level 116H, Carbon Dioxide Level 25, Anion Gap 8, Blood Urea Nitrogen 7, Creatinine 0.5L, Estimat Glomerular Filtration Rate > 60, Glucose Level 81, Calcium Level 9.0 Height (Feet): 5 Height (Inches): 5.00 Weight (Pounds): 211 General Appearance: no apparent distress, alert, confused, overweight Neurologic: alert, responsive, disoriented, depressed affect Cindy Lechuga M.D. Dec 19, 2016 21:19
--- NOTE | 2016-12-19 21:30 | Procedure Note ---
DATE OF PROCEDURE: 12/19/2016 SURGEON: Danyel Rouse M.D. PROCEDURE: Upper endoscopy with biopsy. ANESTHESIOLOGIST: Mahamed Ayala M.D. INSTRUMENT: Olympus adult flexible upper endoscope. INDICATIONS: 1. Cirrhosis. 2. To evaluate for esophageal varices. REASON FOR PROCEDURE: The procedure, risks, benefits, and possible consequences, including hemorrhage, aspiration, perforation and infection, and alternative treatments, were explained to the patient/legal guardian by Dr. Danyel Rouse and the patient/legal guardian understood and accepted these risks. PROCEDURE IN DETAIL: After informed consent was obtained and the patient was adequately sedated, Olympus upper endoscope was advanced from mouth into the second portion of the duodenum and retroflexion was performed in the stomach. The patient had evidence of diffuse gastritis. Random biopsy from antrum was obtained to rule out H. pylori infection. There was no evidence of any esophageal or gastric varices. The patient tolerated the procedure very well without any complication. SUMMARY OF FINDINGS: Gastritis, otherwise normal upper endoscopic examination. RECOMMENDATIONS: Follow up biopsies and treat accordingly. I want to thank, Dr. Claudio Soria, for this kind referral. Danyel Rouse M.D. DR: CAPRICE JOB#: [id number] CC: Claudio Soria D.O.
[2016-12-19] MEDS: LORazepam 1mg tab ORAL PRN (21:46)
--- NOTE | 2016-12-19 22:17 | General Progress Note ---
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 # possible sepsis # possible UTI # elevated LFT ( likely due to Depakote vs hep C infection) # Hepatitis C infection # schizophrenia # BPH Subjective Constitutional: Reports: no symptoms HEENT: Reports: no symptoms Cardiovascular: Reports: no symptoms Respiratory: Reports: no symptoms Gastrointestinal/Abdominal: Reports: no symptoms Genitourinary: Reports: no symptoms Neurologic/Psychiatric: Reports: no symptoms Endocrine: Reports: no symptoms Hematologic/Lymphatic: Reports: no symptoms Allergies: Coded Allergies: VANCOMYCIN (Verified Allergy, Unknown, 12/13/16) Subjective NAD Objective Last 24 Hour Vital Signs Date Time Temp Pulse Resp B/P (MAP) Pulse Ox O2 Delivery O2 Flow Rate FiO2 12/19/16 20:00 97.9 103 19 122/83 94 Room Air 12/19/16 16:06 97.7 61 21 97/56 98 Room Air 12/19/16 12:55 97.6 75 15 98/64 96 Room Air 12/19/16 12:54 73 21 98/65 97 Room Air 12/19/16 12:45 77 16 96/66 96 Room Air 12/19/16 12:30 71 17 92/52 95 Room Air 12/19/16 12:20 75 15 91/55 98 Room Air 12/19/16 12:15 79 19 93/59 97 Room Air 12/19/16 12:13 72 20 99 12/19/16 12:11 97.3 76 20 108/56 98 Room Air 12/19/16 11:44 97.6 98 21 128/58 96 Room Air 12/19/16 08:16 97.9 56 19 94/57 97 Room Air 12/19/16 04:00 97.2 57 19 112/49 98 Room Air 12/19/16 00:00 96.1 74 19 112/56 98 Room Air Intake and Output 12/19/16 12/20/16 19:00 07:00 Intake Total 340 ml Output Total 400 ml Balance -60 ml Intake Oral 340 ml Output Urine Total 400 ml # Bowel Movements 1 Laboratory Tests 12/19/16 04:40: White Blood Count 9.8, Red Blood Count 4.32L, Hemoglobin 13.9L, Hematocrit 39.9L , Mean Corpuscular Volume 93, Mean Corpuscular Hemoglobin 32.2H, Mean Corpuscular Hemoglobin Concent 34.8, Red Cell Distribution Width 16.1H, Platelet Count 190, Mean Platelet Volume 7.5, Neutrophils (%) (Auto) 53.6, Lymphocytes (%) (Auto) 34.6, Monocytes (%) (Auto) 9.2, Eosinophils (%) (Auto) 1.7, Basophils (%) (Auto) 1.0, Sodium Level 149H, Potassium Level 4.2, Chloride Level 116H, Carbon Dioxide Level 25, Anion Gap 8, Blood Urea Nitrogen 7, Creatinine 0.5L, Estimat Glomerular Filtration Rate > 60, Glucose Level 81, Calcium Level 9.0 Height (Feet): 5 Height (Inches): 5.00 Weight (Pounds): 211 General Appearance: no apparent distress EENT: normal ENT inspection Cardiovascular: normal peripheral pulses Respiratory/Chest: decreased breath sounds Edema: mild edema Jony Smith Dec 19, 2016 22:17
--- NOTE | 2016-12-19 23:24 | Infectious Diseases Prog Note ---
Assessment/Plan Problems: (1) Positive blood culture Assessment & Plan: Probably contaminant. Monitor off antibiotics. 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 Unclear baseline. Doubt sepsis is contributing though. Subjective ROS Limited/Unobtainable: Yes Respiratory: Reports: no symptoms Breasts: Reports: no symptoms Psychiatric: Reports: no symptoms Endocrine: Reports: no symptoms Allergies: Coded Allergies: VANCOMYCIN (Verified Allergy, Unknown, 12/13/16) Subjective No fever. Objective Vital Signs Last 24 Hour Vital Signs Date Time Temp Pulse Resp B/P (MAP) Pulse Ox O2 Delivery O2 Flow Rate FiO2 12/19/16 20:00 97.9 103 19 122/83 94 Room Air 12/19/16 16:06 97.7 61 21 97/56 98 Room Air 12/19/16 12:55 97.6 75 15 98/64 96 Room Air 12/19/16 12:54 73 21 98/65 97 Room Air 12/19/16 12:45 77 16 96/66 96 Room Air 12/19/16 12:30 71 17 92/52 95 Room Air 12/19/16 12:20 75 15 91/55 98 Room Air 12/19/16 12:15 79 19 93/59 97 Room Air 12/19/16 12:13 72 20 99 12/19/16 12:11 97.3 76 20 108/56 98 Room Air 12/19/16 11:44 97.6 98 21 128/58 96 Room Air 12/19/16 08:16 97.9 56 19 94/57 97 Room Air 12/19/16 04:00 97.2 57 19 112/49 98 Room Air 12/19/16 00:00 96.1 74 19 112/56 98 Room Air Height (Feet): 5 Height (Inches): 5.00 Weight (Pounds): 211 General Appearance: no acute distress HEENT: normocephalic Cardiovascular: no JVD Abdomen: soft, non tender Extremities: no cyanosis, no clubbing Skin: other Musculoskeletal: no effusion Objective Skin warm. Laboratory Tests Test 12/19/16 04:40 White Blood Count 9.8 K/UL (4.8-10.8) Red Blood Count 4.32 M/UL (4.70-6.10) L Hemoglobin 13.9 G/DL (14.2-18.0) L Hematocrit 39.9 % (42.0-52.0) L Mean Corpuscular Volume 93 FL (80-99) Mean Corpuscular Hemoglobin 32.2 PG (27.0-31.0) H Mean Corpuscular Hemoglobin Concent 34.8 G/DL (32.0-36.0) Red Cell Distribution Width 16.1 % (11.6-14.8) H Platelet Count 190 K/UL (150-450) Mean Platelet Volume 7.5 FL (6.5-10.1) Neutrophils (%) (Auto) 53.6 % (45.0-75.0) Lymphocytes (%) (Auto) 34.6 % (20.0-45.0) Monocytes (%) (Auto) 9.2 % (1.0-10.0) Eosinophils (%) (Auto) 1.7 % (0.0-3.0) Basophils (%) (Auto) 1.0 % (0.0-2.0) Sodium Level 149 MMOL/L (136-145) H Potassium Level 4.2 MMOL/L (3.5-5.1) Chloride Level 116 MMOL/L (98-107) H Carbon Dioxide Level 25 MMOL/L (21-32) Anion Gap 8 (5-15) Blood Urea Nitrogen 7 mg/dL (7-18) Creatinine 0.5 MG/DL (0.55-1.30) L Estimat Glomerular Filtration Rate > 60 mL/min (>60) Glucose Level 81 MG/DL (74-106) Calcium Level 9.0 MG/DL (8.5-10.1) Current Medications Medications (Trade) Dose Ordered Sig/Abhishek Route PRN Reason Start Time Stop Time Status Last Admin Dose Admin Dextrose (Dextrose 50%) STAT PRN IV Hypoglycemia 12/15/16 15:00 01/12/17 14:59 Finasteride (Proscar) 5 mg DAILY ORAL 12/15/16 09:00 01/13/17 08:59 12/19/16 09:13 Gabapentin (Neurontin) 600 mg THREE TIMES A DAY ORAL 12/18/16 18:00 01/17/17 17:59 12/19/16 17:58 Haloperidol Lactate (Haldol) 5 mg Q6H PRN IM Agitation 12/19/16 11:00 01/18/17 10:59 12/19/16 20:17 Heparin Sodium (Porcine) (Heparin 5000 units/ml) 5,000 units EVERY 12 HOURS SUBQ 12/14/16 21:00 01/12/17 20:59 12/19/16 20:24 Lactulose (Cephulac) 10 gm THREE TIMES A DAY ORAL 12/16/16 18:00 01/15/17 17:59 12/19/16 17:58 Levetiracetam (Keppra) 500 mg Q12HR ORAL 12/15/16 14:00 01/14/17 13:59 12/19/16 20:15 Lorazepam (Ativan) 2 mg Q6H PRN ORAL For Anxiety 12/18/16 15:00 12/25/16 14:59 12/19/16 21:46 Morphine Sulfate (Morphine Sulfate) 1 mg Q4H PRN IVP PAIN 4-10 12/14/16 18:00 12/20/16 17:59 Nystatin (Nystop Powder) 1 applic THREE TIMES A DAY TOPIC 12/18/16 21:00 01/17/17 20:59 12/19/16 17:58 Olanzapine (ZyPREXA) 10 mg BEDTIME ORAL 12/18/16 21:00 01/17/17 20:59 12/19/16 20:16 Ondansetron HCl (Zofran) 4 mg Q6H PRN IVP Nausea & Vomiting 12/14/16 17:00 01/13/17 16:59 Rifaximin (Xifaxan) 550 mg EVERY 12 HOURS ORAL 12/16/16 21:00 12/23/16 20:59 12/19/16 20:16 Tamsulosin HCl (Flomax) 0.4 mg BEDTIME ORAL 12/14/16 21:00 01/12/17 20:59 12/19/16 20:16 BUCK CRAIG Dec 19, 2016 23:24
[2016-12-20 04:00] VITALS: BP 104/69
[2016-12-20] MEDS: Haloperidol 5mg/ml Inj IM PRN (06:38)
[2016-12-20] MEDS ORDERED: Haloperidol 5mg/ml Inj IM PRN (07:15)
--- NOTE | 2016-12-20 07:44 | 48 Hour Post Anesthesia Eval ---
Post Anesthesia Evaluation Procedure: EGD with Bx Date of Evaluation: Dec 20, 2016 Time of Evaluation: 07:43 Blood Pressure Systolic: 104 0: 52 Pulse Rate: 74 Respiratory Rate: 20 Temperature (Fahrenheit): 97.6 O2 Sat by Pulse Oximetry: 98 Airway: patent Nausea: No Vomiting: No Pain Intensity: 1 Hydration Status: adequate Cardiopulmonary Status: stable Mental Status/LOC: patient returned to baseline Follow-up Care/Observations: n/a Post-Anesthesia Complications: none Follow-up care needed: N/A SEJAL AYALA M.D. Dec 20, 2016 07:44
[2016-12-20 08:00] VITALS: BP 131/67
[2016-12-20] MEDS: Lactulose 10gm/15ml UDC ORAL SCH ×3 (08:39→17:31)
[2016-12-20] MEDS: Heparin 5000 units/ml inj SUBQ SCH (08:45)
[2016-12-20 11:01] LABS: BASOPHILS % (AUTO) 0.9 % (0.0-2.0); EOSINOPHILS % (AUTO) 0.9 % (0.0-3.0); LYMPHOCYTES % (AUTO) 37.6 % (20.0-45.0); MEAN CORPUSCULAR HEMOGLOBIN 31.1 PG (27.0-31.0); MEAN CORPUSCULAR HGB CONC 33.6 G/DL (32.0-36.0); MEAN CORPUSCULAR VOLUME 93 FL (80-99); MEAN PLATELET VOLUME 8.2 FL (6.5-10.1); MONOCYTES % (AUTO) 6.4 % (1.0-10.0); NEUTROPHILS % (AUTO) 54.3 % (45.0-75.0); PLATELET COUNT 206 K/UL (150-450); RED BLOOD COUNT 4.45 M/UL (4.70-6.10); RED CELL DISTRIBUTION WIDTH 16.7 % (11.6-14.8); WHITE BLOOD COUNT 9.5 K/UL (4.8-10.8)
[2016-12-20 11:09] LABS: ALANINE AMINOTRANSFERASE 116 U/L (12-78); ALBUMIN/GLOBULIN RATIO 0.8 (1.0-2.7); ANION GAP 8 mmol/L (5-15); ASPARTATE AMINO TRANSFERASE 83 U/L (15-37); CALCIUM 9.1 MG/DL (8.5-10.1); CARBON DIOXIDE 25 MMOL/L (21-32); CHLORIDE 113 MMOL/L (98-107); CREATININE 0.7 MG/DL (0.55-1.30); GLOMERULAR FILTRATION RATE > 60 mL/min (>60); POTASSIUM 3.7 MMOL/L (3.5-5.1); SODIUM 146 MMOL/L (136-145); TOTAL PROTEIN 6.8 G/DL (6.4-8.2)
--- NOTE | 2016-12-20 11:17 | Diagnostic Imaging Report ---
Indication: Altered level of consciousness Technique: Contiguous 5 mm thick transaxial imaging of the head obtained in a Siemens Sensation [address] scanner. Soft tissue and bone windows generated. Total Dose length Product (DLP): [address] Dose Index Volume (CTDIvol): 70.38, 0.15 mGy Comparison: none Findings: There is a questionable, small focus of edema involving the right parietal lobe (for example image 16 of series 3 or image 27 of series 7). If there are focal signs of acute CVA consider MR for further evaluation. There is no acute hemorrhage, midline shift or mass effect. A moderate generalized atrophy the brain is present characterized by prominence of the sulci ventricles and basal cisterns. Prominent focus of encephalomalacia in the right frontal lobe as well as the right posterior parietal lobe noted consistent with old infarcts. Osseous structures are unremarkable. Impression: Small focus of edema, questionable involving the right parietal lobe. No evidence of acute hemorrhage or mass effect. A may be of benefit for further evaluation. 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 Moderate atrophy of the brain. The CT scanner at [facility] is accredited by the [employer] and the scans are performed using dose optimization techniques as appropriate to a performed exam including Automatic Exposure control.
[2016-12-20 12:00] VITALS: BP 107/57
--- NOTE | 2016-12-20 12:58 | General Progress Note ---
Assessment/Plan Problem List: (1) Sepsis ICD Codes: A41.9 - Sepsis, unspecified organism SNOMED: 63042131 (2) UTI (urinary tract infection) ICD Codes: N39.0 - Urinary tract infection, site not specified SNOMED: 83125060 (3) Elevated liver enzymes ICD Codes: R74.8 - Abnormal levels of other serum enzymes SNOMED: 306376141, 910347870 (4) Dementia ICD Codes: F03.90 - Unspecified dementia without behavioral disturbance SNOMED: 94412897 (5) Parkinson disease ICD Codes: G20 - Parkinson's disease SNOMED: 48210979 (6) Epilepsia ICD Codes: G40.909 - Epilepsy, unspecified, not intractable, without status epilepticus SNOMED: 23314104 Status: stable, progressing, tolerating diet Assessment/Plan ot pt diet abx cbc bmp am dc plan vs psyc transfer Subjective Constitutional: Reports: weakness Allergies: Coded Allergies: VANCOMYCIN (Verified Allergy, Unknown, 12/13/16) All Systems: reviewed and negative except above Subjective confused in bed Objective Last 24 Hour Vital Signs Date Time Temp Pulse Resp B/P (MAP) Pulse Ox O2 Delivery O2 Flow Rate FiO2 12/20/16 12:00 98.2 99 20 107/57 95 Room Air 12/20/16 08:00 97.7 101 20 131/67 96 Room Air 12/20/16 07:44 74 20 98 12/20/16 04:00 97.7 69 20 104/69 96 Room Air 12/20/16 00:00 96.8 79 20 96 Room Air 12/19/16 20:00 97.9 103 19 122/83 94 Room Air 12/19/16 16:06 97.7 61 21 97/56 98 Room Air Laboratory Tests 12/20/16 09:55: White Blood Count 9.5, Red Blood Count 4.45L, Hemoglobin 13.8L, Hematocrit 41.2L , Mean Corpuscular Volume 93, Mean Corpuscular Hemoglobin 31.1H, Mean Corpuscular Hemoglobin Concent 33.6, Red Cell Distribution Width 16.7H, Platelet Count 206, Mean Platelet Volume 8.2, Neutrophils (%) (Auto) 54.3, Lymphocytes (%) (Auto) 37.6, Monocytes (%) (Auto) 6.4, Eosinophils (%) (Auto) 0.9, Basophils (%) (Auto) 0.9, Sodium Level 146H, Potassium Level 3.7, Chloride Level 113H, Carbon Dioxide Level 25, Anion Gap 8, Blood Urea Nitrogen 5L, Creatinine 0.7, Estimat Glomerular Filtration Rate > 60, Glucose Level 119H, Calcium Level 9.1, Total Bilirubin 0.6, Aspartate Amino Transf (AST/SGOT) 83H, Alanine Aminotransferase (ALT/SGPT) 116H, Alkaline Phosphatase 60, Total Protein 6.8, Albumin 3.0L, Globulin 3.8, Albumin/Globulin Ratio 0.8L, Ceruloplasmin [Pending] Height (Feet): 5 Height (Inches): 5.00 Weight (Pounds): 211 General Appearance: lethargic EENT: normal ENT inspection Neck: normal alignment Cardiovascular: normal peripheral pulses, normal rate, regular rhythm Respiratory/Chest: chest wall non-tender, lungs clear, normal breath sounds Abdomen: normal bowel sounds, non tender, soft Extremities: normal inspection Edema: no edema noted Arm (L), no edema noted Arm (R), no edema noted Leg (L), no edema noted Leg (R), no edema noted Pedal (L), no edema noted Pedal (R), no edema noted Generalized Neurologic: responsive, motor weakness Skin: normal pigmentation, warm/dry RADHA GARCIA Dec 20, 2016 12:58
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
--- NOTE | 2016-12-20 14:42 | GI Progress Note ---
Assessment/Plan Problems: (1) Transaminitis ICD Codes: R74.0 - Nonspecific elevation of levels of transaminase and lactic acid dehydrogenase [LDH] SNOMED: 584400943 (2) Hepatitis C ICD Codes: B19.20 - Unspecified viral hepatitis C without hepatic coma SNOMED: 14064830 (3) Hepatic encephalopathy ICD Codes: K72.90 - Hepatic failure, unspecified without coma SNOMED: 42856219 (4) Dementia ICD Codes: F03.90 - Unspecified dementia without behavioral disturbance SNOMED: 84746804 (5) Elevated liver enzymes ICD Codes: R74.8 - Abnormal levels of other serum enzymes SNOMED: 774042839, 797905350 (6) abnormal liver enzymes, 2/2 depakote/hepC Status: stable Status Narrative Discussed with Dr. Rouse. Assessment/Plan SUMMARY OF FINDINGS: Gastritis, otherwise normal upper endoscopic examination. Hepatitis C positive >> will require outpatient treatment abdominal U/S RECOMMENDATIONS: Follow up biopsies and treat accordingly. lactulose + xifaxin, monitor ammonia levels OB stool r/o GI bleed monitor H&H, prn transfusions bowel regime ppi fu labs Subjective Gastrointestinal/Abdominal: Reports: no symptoms Objective Last 24 Hour Vital Signs Date Time Temp Pulse Resp B/P (MAP) Pulse Ox O2 Delivery O2 Flow Rate FiO2 12/20/16 12:00 98.2 99 20 107/57 95 Room Air 12/20/16 08:00 97.7 101 20 131/67 96 Room Air 12/20/16 07:44 74 20 98 12/20/16 04:00 97.7 69 20 104/69 96 Room Air 12/20/16 00:00 96.8 79 20 96 Room Air 12/19/16 20:00 97.9 103 19 122/83 94 Room Air 12/19/16 16:06 97.7 61 21 97/56 98 Room Air Laboratory Tests Test 12/20/16 09:55 White Blood Count 9.5 K/UL (4.8-10.8) Red Blood Count 4.45 M/UL (4.70-6.10) L Hemoglobin 13.8 G/DL (14.2-18.0) L Hematocrit 41.2 % (42.0-52.0) L Mean Corpuscular Volume 93 FL (80-99) Mean Corpuscular Hemoglobin 31.1 PG (27.0-31.0) H Mean Corpuscular Hemoglobin Concent 33.6 G/DL (32.0-36.0) Red Cell Distribution Width 16.7 % (11.6-14.8) H Platelet Count 206 K/UL (150-450) Mean Platelet Volume 8.2 FL (6.5-10.1) Neutrophils (%) (Auto) 54.3 % (45.0-75.0) Lymphocytes (%) (Auto) 37.6 % (20.0-45.0) Monocytes (%) (Auto) 6.4 % (1.0-10.0) Eosinophils (%) (Auto) 0.9 % (0.0-3.0) Basophils (%) (Auto) 0.9 % (0.0-2.0) Sodium Level 146 MMOL/L (136-145) H Potassium Level 3.7 MMOL/L (3.5-5.1) Chloride Level 113 MMOL/L (98-107) H Carbon Dioxide Level 25 MMOL/L (21-32) Anion Gap 8 mmol/L (5-15) Blood Urea Nitrogen 5 mg/dL (7-18) L Creatinine 0.7 MG/DL (0.55-1.30) Estimat Glomerular Filtration Rate > 60 mL/min (>60) Glucose Level 119 MG/DL (74-106) H Calcium Level 9.1 MG/DL (8.5-10.1) Total Bilirubin 0.6 MG/DL (0.2-1.0) Aspartate Amino Transf (AST/SGOT) 83 U/L (15-37) H Alanine Aminotransferase (ALT/SGPT) 116 U/L (12-78) H Alkaline Phosphatase 60 U/L (46-116) Total Protein 6.8 G/DL (6.4-8.2) Albumin 3.0 G/DL (3.4-5.0) L Globulin 3.8 g/dL Albumin/Globulin Ratio 0.8 (1.0-2.7) L Ceruloplasmin Pending Height (Feet): 5 Height (Inches): 5.00 Weight (Pounds): 211 General Appearance: no apparent distress, alert Cardiovascular: normal rate Respiratory/Chest: normal breath sounds, no respiratory distress Abdominal Exam: normal bowel sounds, non tender, soft Extremities: normal range of motion Elena Parkinson N.P. Dec 20, 2016 14:41
[2016-12-20] MEDS: Nystatin Powder 100,000 units/gm 15gm TOPIC SCH ×2 (14:52→14:54)
--- NOTE | 2016-12-20 15:44 | Pulmonology Progress Note ---
Assessment/Plan Problems: (1) Sepsis (2) UTI (urinary tract infection) (3) Epilepsia (4) Parkinson disease (5) Dementia Assessment/Plan more awake, shook my hand today refusing IV line continue abx check cultures dvt prophylaxis Subjective ROS Limited/Unobtainable: No Constitutional: Reports: no symptoms HEENT: Repors: no symptoms Respiratory: Reports: no symptoms, other Allergies: Coded Allergies: VANCOMYCIN (Verified Allergy, Unknown, 12/13/16) Objective Last 24 Hour Vital Signs Date Time Temp Pulse Resp B/P (MAP) Pulse Ox O2 Delivery O2 Flow Rate FiO2 12/20/16 12:00 98.2 99 20 107/57 95 Room Air 12/20/16 08:00 97.7 101 20 131/67 96 Room Air 12/20/16 07:44 74 20 98 12/20/16 04:00 97.7 69 20 104/69 96 Room Air 12/20/16 00:00 96.8 79 20 96 Room Air 12/19/16 20:00 97.9 103 19 122/83 94 Room Air 12/19/16 16:06 97.7 61 21 97/56 98 Room Air General Appearance: WD/WN HEENT: normocephalic, atraumatic Respiratory/Chest: chest wall non-tender, lungs clear Cardiovascular: normal peripheral pulses, normal rate Abdomen: normal bowel sounds, soft, non tender Genitourinary: normal external genitalia Extremities: no clubbing Skin: no lesions Laboratory Tests 12/20/16 09:55: White Blood Count 9.5, Red Blood Count 4.45L, Hemoglobin 13.8L, Hematocrit 41.2L , Mean Corpuscular Volume 93, Mean Corpuscular Hemoglobin 31.1H, Mean Corpuscular Hemoglobin Concent 33.6, Red Cell Distribution Width 16.7H, Platelet Count 206, Mean Platelet Volume 8.2, Neutrophils (%) (Auto) 54.3, Lymphocytes (%) (Auto) 37.6, Monocytes (%) (Auto) 6.4, Eosinophils (%) (Auto) 0.9, Basophils (%) (Auto) 0.9, Sodium Level 146H, Potassium Level 3.7, Chloride Level 113H, Carbon Dioxide Level 25, Anion Gap 8, Blood Urea Nitrogen 5L, Creatinine 0.7, Estimat Glomerular Filtration Rate > 60, Glucose Level 119H, Calcium Level 9.1, Total Bilirubin 0.6, Aspartate Amino Transf (AST/SGOT) 83H, Alanine Aminotransferase (ALT/SGPT) 116H, Alkaline Phosphatase 60, Total Protein 6.8, Albumin 3.0L, Globulin 3.8, Albumin/Globulin Ratio 0.8L, Ceruloplasmin [Pending] Current Medications Medications (Trade) Dose Ordered Sig/Abhishek Route PRN Reason Start Time Stop Time Status Last Admin Dose Admin Dextrose (Dextrose 50%) STAT PRN IV Hypoglycemia 12/15/16 15:00 01/12/17 14:59 Finasteride (Proscar) 5 mg DAILY ORAL 12/15/16 09:00 01/13/17 08:59 12/20/16 08:39 Gabapentin (Neurontin) 600 mg THREE TIMES A DAY ORAL 12/18/16 18:00 01/17/17 17:59 12/20/16 14:52 Haloperidol (Haldol) 5 mg Q8HR ORAL 12/20/16 07:30 01/19/17 07:29 12/20/16 14:52 Haloperidol Lactate (Haldol) 10 mg Q6H PRN IM Agitation 12/20/16 07:15 01/19/17 07:14 Heparin Sodium (Porcine) (Heparin 5000 units/ml) 5,000 units EVERY 12 HOURS SUBQ 12/14/16 21:00 01/12/17 20:59 12/20/16 08:45 Lactulose (Cephulac) 10 gm THREE TIMES A DAY ORAL 12/16/16 18:00 01/15/17 17:59 12/20/16 14:52 Levetiracetam (Keppra) 500 mg Q12HR ORAL 12/15/16 14:00 01/14/17 13:59 12/20/16 08:39 Lorazepam (Ativan) 2 mg Q6H PRN ORAL For Anxiety 12/18/16 15:00 12/25/16 14:59 12/19/16 21:46 Morphine Sulfate (Morphine Sulfate) 1 mg Q4H PRN IVP PAIN 4-10 12/14/16 18:00 12/20/16 17:59 Nystatin (Nystop Powder) 1 applic THREE TIMES A DAY TOPIC 12/18/16 21:00 01/17/17 20:59 12/20/16 14:54 Olanzapine (ZyPREXA) 10 mg BEDTIME ORAL 12/18/16 21:00 01/17/17 20:59 12/19/16 20:16 Ondansetron HCl (Zofran) 4 mg Q6H PRN IVP Nausea & Vomiting 12/14/16 17:00 01/13/17 16:59 Rifaximin (Xifaxan) 550 mg EVERY 12 HOURS ORAL 12/16/16 21:00 12/23/16 20:59 12/20/16 08:39 Tamsulosin HCl (Flomax) 0.4 mg BEDTIME ORAL 12/14/16 21:00 01/12/17 20:59 12/19/16 20:16 ARIANA VELÁZQUEZ Dec 20, 2016 15:44
[2016-12-20 16:00] VITALS: BP 117/69
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
--- NOTE | 2016-12-20 19:40 | General Progress Note ---
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 --> Head CT today # possible sepsis # possible UTI # elevated LFT ( likely due to Depakote vs hep C infection) # Hepatitis C infection # schizophrenia # BPH Subjective Allergies: Coded Allergies: VANCOMYCIN (Verified Allergy, Unknown, 12/13/16) All Systems: reviewed and negative except above Subjective NAD Objective Last 24 Hour Vital Signs Date Time Temp Pulse Resp B/P (MAP) Pulse Ox O2 Delivery O2 Flow Rate FiO2 12/20/16 16:00 98.2 99 20 117/69 95 Room Air 12/20/16 12:00 98.2 99 20 107/57 95 Room Air 12/20/16 08:00 97.7 101 20 131/67 96 Room Air 12/20/16 07:44 74 20 98 12/20/16 04:00 97.7 69 20 104/69 96 Room Air 12/20/16 00:00 96.8 79 20 96 Room Air 12/19/16 20:00 97.9 103 19 122/83 94 Room Air Intake and Output 12/20/16 12/21/16 19:00 07:00 Intake Total 420 ml Balance 420 ml Intake Oral 420 ml # Voids 7 # Bowel Movements 2 Laboratory Tests 12/20/16 09:55: White Blood Count 9.5, Red Blood Count 4.45L, Hemoglobin 13.8L, Hematocrit 41.2L , Mean Corpuscular Volume 93, Mean Corpuscular Hemoglobin 31.1H, Mean Corpuscular Hemoglobin Concent 33.6, Red Cell Distribution Width 16.7H, Platelet Count 206, Mean Platelet Volume 8.2, Neutrophils (%) (Auto) 54.3, Lymphocytes (%) (Auto) 37.6, Monocytes (%) (Auto) 6.4, Eosinophils (%) (Auto) 0.9, Basophils (%) (Auto) 0.9, Sodium Level 146H, Potassium Level 3.7, Chloride Level 113H, Carbon Dioxide Level 25, Anion Gap 8, Blood Urea Nitrogen 5L, Creatinine 0.7, Estimat Glomerular Filtration Rate > 60, Glucose Level 119H, Calcium Level 9.1, Total Bilirubin 0.6, Aspartate Amino Transf (AST/SGOT) 83H, Alanine Aminotransferase (ALT/SGPT) 116H, Alkaline Phosphatase 60, Total Protein 6.8, Albumin 3.0L, Globulin 3.8, Albumin/Globulin Ratio 0.8L, Ceruloplasmin [Pending] Height (Feet): 5 Height (Inches): 5.00 Weight (Pounds): 211 General Appearance: no apparent distress EENT: normal ENT inspection Neck: normal alignment Respiratory/Chest: chest wall non-tender Abdomen: normal bowel sounds, non tender Extremities: non-tender Neurologic: roping tender II-XII grossly normal Jony Smith Dec 20, 2016 19:40
[2016-12-20] MEDS ORDERED: ZyPREXA Zydis 10mg tab ORAL SCH (21:00)
--- NOTE | 2016-12-22 15:55 | Discharge Summary ---
Discharge Summary Hospital Course Date of Admission Dec 13, 2016 at 16:26 Date of Discharge Dec 20, 2016 at 18:17 Admitting Diagnosis HPI Francisco Lombardo is a 46 year old male who was admitted on Dec 13, 2016 at 16: 26 for Sepsis, Acute Kidney Injury & Uti Hospital Course [id number] Discharge Discharge Disposition Patient was discharged to snf Discharge Diagnoses: Gia Fish NP Dec 22, 2016 15:55
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
--- NOTE | 2016-12-27 14:12 | Diagnostic Imaging Report ---
Indications: DYSPHAGIA Technique: Patient ingested multiple substances under the supervision of speech pathology. Video fluoroscopic recording performed. Total fluoroscopy time 274 seconds. Total dose area product 0.403 mGycm2 Comparison: none Findings: Ingestion of thin liquid barium results in occasional trace supraglottic laryngeal penetration. No evidence of aspiration. No significant pooling of thin liquid barium. Ingestion of other substances demonstrates delay in initiation of deglutition, early pooling in the vallecula and puriform sinuses, no evidence of aspiration or penetration. No significant residual Impression: Positive for penetration of thin liquid barium. No aspiration. Please refer to speech pathology report for more detailed analysis
== END 2016-12-20 18:17 | DRG 871 ==
LOC: 2W 16:26 → 4E 12-14 15:30
PROC: 0DD68ZX Extraction of Stomach, Via Natural or Artificial Opening Endoscopic, Diagnostic (ICD-10-PCS; principal; 2016-12-19 11:57)
DX: A41.9 Sepsis, unspecified organism (principal); G93.40 Encephalopathy, unspecified; D61.818 Other pancytopenia; E46 Unspecified protein-calorie malnutrition; E87.0 Hyperosmolality and hypernatremia; R16.0 Hepatomegaly, not elsewhere classified; F02.81 Dementia in other diseases classified elsewhere, unspecified severity, with behavioral disturbance; N39.0 Urinary tract infection, site not specified; J98.11 Atelectasis; G20 Parkinson's disease; F20.9 Schizophrenia, unspecified; Z78.1 Physical restraint status; E83.51 Hypocalcemia; K74.60 Unspecified cirrhosis of liver; K72.90 Hepatic failure, unspecified without coma; K29.70 Gastritis, unspecified, without bleeding; N40.0 Benign prostatic hyperplasia without lower urinary tract symptoms; B19.20 Unspecified viral hepatitis C without hepatic coma; F31.9 Bipolar disorder, unspecified; G40.909 Epilepsy, unspecified, not intractable, without status epilepticus; E87.6 Hypokalemia; R62.50 Unspecified lack of expected normal physiological development in childhood; R74.0 Nonspecific elevation of levels of transaminase and lactic acid dehydrogenase [LDH]; Z68.33 Body mass index [BMI] 33.0-33.9, adult; T65.91XA Toxic effect of unspecified substance, accidental (unintentional), initial encounter; T21.46XA Corrosion of unspecified degree of male genital region, initial encounter; Y92.9 Unspecified place or not applicable
CPT/HCPCS: 36415; 70450; 71010; 74230; 76700; 80048; 80053; 80299; 80300; 81001; 82105; 82140; 82390; 82607; 82746; 82962; 83735; 84100; 85007; 85025; 85651; 86140; 86705; 86708; 86790; 86803; 87040; 87081; 87086; 87340; 94003; 94150; S0077